=== PATIENT | male | born 1960 | race Caucasian/White ===

== ENCOUNTER 2017-06-18 20:39 | Inpatient (IN) | payer OTHER, SELFPAY ==
[~2017-06-18 20:39] MED LIST: ISOVUE-370 76%-LOCM 1 ML ONE
[2017-06-18 21:20] LABS: ALT (SGPT) 80 U/L (8-55); AST (SGOT) 127 U/L (5-34); Albumin 4.5 g/dL (3.5-5.0); Alkaline Phosphatase 77 U/L (40-150); Anion Gap 13 mmol/L (10-20); BUN (Urea Nitrogen) 13 mg/dL (8.4-25.7); Bilirubin, Total 1.2 mg/dL (0.2-1.2); CK (CPK) 137 U/L (30-200); Calc. Creatinine Clearance 0 mL/min (70-130); Calcium 9.7 mg/dL (7.8-10.44); Carbon Dioxide 26 mmol/L (22-29); Chloride 104 mmol/L (98-107); Estimated GFR-MDRD 74; Globulin 2.8 g/dL (2.4-3.5); Glucose 143 mg/dL (70-105); Lipase 42 U/L (8-78); Potassium 3.9 mmol/L (3.5-5.1); Protein, Total 7.3 g/dL (6.0-8.3); Sodium 139 mmol/L (136-145)
[2017-06-18 21:25] LABS: #Eosinphils 0.4 thou/uL (0.0-0.7); #Lymphocytes 1.8 thou/uL (1.20-3.40); #Monocytes 0.4 thou/uL (0.11-0.59); #Neutrophils 4.3 thou/uL (1.40-6.50); %Basophils 0.4 % (0.0-1.0); %Eosinophils 5.8 % (0.0-10.0); %Lymphocytes 25.6 % (21.0-51.0); %Monocytes 5.4 % (0.0-10.0); %Neutrophils 62.8 % (42.0-75.0); Hemoglobin 15.1 g/dL (14.0-18.0); Mean Corpuscular HGB CONC 35.3 g/dL (32.0-36.0); Mean Corpuscular Hemoglobin 32.4 pg (27.0-31.0); Mean Corpuscular Volume 91.8 fl (80.0-94.0); Mean Platelet Volume 8.6 fL (7.4-10.4); Platelet Count 144 thou/uL (130-400); RBC Distribution Width 11.6 % (11.5-14.5); Red Blood Cell (RBC) Count 4.67 mill/uL (4.70-6.10); White Blood Cell (WBC) Count 6.8 thou/uL (4.8-10.8)
[2017-06-18 21:30] LABS: CKMB 1.5 ng/mL (0-6.6); Troponin I Less than 0.010 ng/mL (< 0.028)
[2017-06-18] MEDS ORDERED: Nitroglycerin 0.4 MG TAB (25 Tab Bottle) ONE (21:47)
[2017-06-18] MEDS ORDERED: Aspirin 325 MG TAB ONE (21:47)
--- NOTE | 2017-06-18 21:54 | RAD ---
PORTABLE AP CHEST X-RAY: 06/18/2017 HISTORY: Chest pain that started a couple hours ago. COMPARISON: None available. FINDINGS: Post surgical changes related to anterior cervical fusion, lower cervical spine, are noted. The card iac silhouette and bronchovascular markings are accentuated by the shallow depth of inspiration and t he portable technique. The lungs are clear. There is mild elevation of the right hemidiaphragm. Mi ld degenerative changes are seen in the thoracic spine. IMPRESSION: No acute cardiopulmonary process. POS: [facility]
[2017-06-18] MEDS ORDERED: Acetaminophen 500 MG TAB ONE (22:48)
[2017-06-18] MEDS ORDERED: Ondansetron HCl/PF 4 MG/2 ML Vial ONE (22:48)
--- NOTE | 2017-06-18 23:57 | CT ---
CT ANGIOGRAM THORAX WITH IV CONTRAST AND 3D RECONSTRUCTIONS: CT ANGIOGRAM ABDOMEN WITH IV CONTRAST AND 3D RECONSTRUCTIONS: 06/18/2017 HISTORY: Chest pain. Tightness in rib cage. Back pain. COMPARISON: CTA chest from 08/03/[address] abdomen and pelvis from 08/27/2010. FINDINGS: The thoracic and abdominal aorta are normal in caliber without evidence of an aortic dissection. The bilateral visualized proximal common iliac arteries are patent. There is a common origin of the lef t common carotid artery and innominate artery, which are patent. The bilateral subclavian arteries a re patent. The celiac, superior mesenteric, and inferior mesenteric arteries are widely patent. There are two l eft and a single right patent renal arteries. The pulmonary arteries are not well opacified, as this exam is tailored for evaluation of the thoraci c and abdominal aorta. The heart is mildly enlarged. There is dependent atelectasis in the lungs bilaterally. The lungs otherwise appear clear. Calcified right hilar lymph nodes are seen with calcified granulomata present within the spleen. There is no evidence of lymphadenopathy. There is a stable, hypodense lesion in the lateral segment, left hepatic lobe, likely related to a cy st. There are subcentimeter, jhi-fwjjq-sg-characterize, hypodense lesions in each kidney, which are nonsp ecific but, statistically, likely represent small renal cysts. The pancreas and bilateral adrenal glands have a normal CT appearance. The appendix is normal in caliber. A small amount of retained fecal material is seen within the colo n. A few colonic diverticula are seen in the descending colon. A small duodenal diverticulum involve s the third portion of the duodenum. There are degenerative changes in the thoracic and lumbar spine with partial visualization of anterio r cervical fusion of the lower cervical spine. IMPRESSION: 1. Thoracic and abdominal aorta are normal in caliber without evidence of an aortic dissection. 2. Additional incidental findings are as described above. POS: [facility]
--- NOTE | 2017-06-19 00:14 | PDOC.FPRHP ---
- History of Present Illness Chief Complaint: Chest pain History of Present Illness: 57 yo M with hx of DM2 and BPH here with CC of chest pain that started around 1800. Pain was described as tightness and radiated to his back. Associated symptoms include dyspnea and nausea. Pt denied diaphoresis, headache, dizziness , changes in vision, peripheral weakness/numbness. He has no history of similar chest pain. He has no cardiac history. He states that the pain was improved by sitting up. In the ED he was given tylenol, nitro, asa, and zofran. Due to radiation to the back CTA was ordered and was negative. - Allergies/Adverse Reactions Allergies Allergy/AdvReac Type Severity Reaction Status Date / Time codeine AdvReac Mild itches if Verified 02/09/15 14:02 he takes more than 2 - Home Medications Medication Instructions Recorded Confirmed Type Cetirizine HCl [Zyrtec] 10 mg PO HS 11/19/14 06/19/17 History Lisinopril 10 mg PO HS 11/19/14 06/19/17 History Omeprazole 20 mg PO HS 11/19/14 06/19/17 History metFORMIN HCl [metFORMIN HCl ER] 500 mg PO HS 11/19/14 06/19/17 History Doxazosin [Cardura] 4 mg PO HS 06/19/17 06/19/17 History glyBURIDE [Glyburide] 5 mg PO HS 06/19/17 06/19/17 History rOPINIRole HCl [Requip] 2 mg PO QPM 06/19/17 06/19/17 History - History PMHx: DM2 BPH PSHx: Cervical Sx R shoulder FHx: Maternal DM, lung ca, heart disease Social: Former etoh abuse, no drinks in 27 years Former social smoker No recreational drug use - Review of Systems General: denies: fever/chills, weight/appetite/sleep changes, night sweats Eyes: denies: vision changes ENT: denies: nasal congestion Respiratory: reports: shortness of breath. denies: cough, congestion Cardiovascular: reports: chest pain (Radiates to the back. Denies radiation to L arm, neck, jaw). denies: palpitation, edema Gastrointestinal: reports: nausea. denies: vomiting, abdominal pain Skin: denies: rashes, lesions Musculoskeletal: denies: pain Neurological: denies: numbness, syncope, seizure Psychological: denies: anxiety, depression - Vital signs BP: 134/69 HR: 77 RR: 18 Tmax: 98.4 Pox: 96% on RA Wt: 100 kg - Physical Exam Constitutional: NAD, awake, alert and oriented HEENT: normocephalic and atraumatic, PERRLA, EOMI, no scleral icterus Neck: supple, FROM, trachea midline Chest: no-tender to palpation Heart: RRR, normal S1/S2, no murmurs/rubs/gallops Lungs: CTAB, no respiratory distress Abdomen: soft, non-tender, bowel sounds present Musculoskeletal: normal structure Neurological: no focal deficit, CN II-XII intact Skin: no rash/lesions, good turgor Heme/Lymphatic: no unusual bruising or bleeding Psychiatric: normal mood and affect FMR H&P: Results - Labs Result Diagrams: 06/18/17 20:50 06/19/17 02:46 Lab results: WBC 6.8 thou/uL (4.8-10.8) 06/18/17 20:50 Hgb 15.1 g/dL (14.0-18.0) 06/18/17 20:50 Hct 42.9 % (42.0-52.0) 06/18/17 20:50 MCV 91.8 fl (80.0-94.0) 06/18/17 20:50 Plt Count 144 thou/uL (130-400) 06/18/17 20:50 Neutrophils % 62.8 % (42.0-75.0) 06/18/17 20:50 Sodium 139 mmol/L (136-145) 06/18/17 20:50 Potassium 3.9 mmol/L (3.5-5.1) 06/18/17 20:50 Chloride 104 mmol/L (98-107) 06/18/17 20:50 Carbon Dioxide 26 mmol/L (22-29) 06/18/17 20:50 BUN 13 mg/dL (8.4-25.7) 06/18/17 20:50 Creatinine 1.04 mg/dL (0.6-1.3) 06/18/17 20:50 Glucose 143 mg/dL (70-105) H 06/18/17 20:50 Calcium 9.7 mg/dL (7.8-10.44) 06/18/17 20:50 Total Bilirubin 1.2 mg/dL (0.2-1.2) 06/18/17 20:50 AST 127 U/L (5-34) H 06/18/17 20:50 ALT 80 U/L (8-55) H 06/18/17 20:50 Alkaline Phosphatase 77 U/L (40-150) 06/18/17 20:50 Creatine Kinase 137 U/L (30-200) 06/18/17 20:50 CK-MB (CK-2) 1.5 ng/mL (0-6.6) 06/18/17 20:50 Serum Total Protein 7.3 g/dL (6.0-8.3) 06/18/17 20:50 Albumin 4.5 g/dL (3.5-5.0) 06/18/17 20:50 Lipase 42 U/L (8-78) 06/18/17 20:50 - EKG Interpretation EKG: NSR, No ST changes or T wave inversion, left axis deviation - Radiology Interpretation Chest x-ray Status: report reviewed by me (No acute process. Shallow inspiration.) CT scan - chest Status: report reviewed by me (No dissection. Mildly enlarged heart. Atelectasis b/l. Calcified R hilar lymph nodes. Calcified splenic granuloma. Hypodense cystic lesion L lobe of liver.) FMR H&P: A/P - Problem List (1) Chest pain Current Visit: Yes Status: Acute Code(s): R07.9 - CHEST PAIN, UNSPECIFIED (2) DM2 (diabetes mellitus, type 2) Current Visit: Yes Status: Acute (3) BPH (benign prostatic hyperplasia) Current Visit: Yes Status: Acute Code(s): N40.0 - BENIGN PROSTATIC HYPERPLASIA WITHOUT LOWER URINRY TRACT SYMP (4) Elevated LFTs Current Visit: Yes Status: Acute Code(s): R79.89 - OTHER SPECIFIED ABNORMAL FINDINGS OF BLOOD CHEMISTRY (5) RLS (restless legs syndrome) Current Visit: Yes Status: Acute - Plan Atypical chest pain - admit to tele obs, HEART score 3 - trend troponin - Fasting lipids - TSH - consider stress test in am - NPO at midnight Transaminitis - RUQ us - CMP in am DM2 - continue home meds - A1c - ACHS accucheck - hold metformin - low carb diet when cleared for diet BPH - restart home flomax RLS - restart home meds Ppx - lovenox Code Full Dispo: Pt is stable, obs over night and work to risk stratify. Likely home tomorrow pending work up FMR H&P: Upper Level - Pertinent history 57 year old male who presented to the ED complaining of chest pain starting today at 18:00. Associated with radiation to back, dyspnea, nausea, and ribcage tightness. Patient denies diopheresis. No known history of CA or CAD. Patient is a former smoker but quit nearly 30 years ago. He describes the pain as pressure. It lasted just under 3 hours and improved with sitting up. No family history of CAD or CA. Patient states it occurred after eating. He had significant nausea but did not vomit. Pain now resolved. He has not had a similar episode before. No aggravating factors. Denies exertional dyspnea, palpitations, PND, orthopnea, nausea after meals, RUQ/epigastric pain. Does endorse frequent belching tonight. In the ED he was seen by Dr. Mondragon and given Tylenol, Zofran, nitro, and aspirin. CTA chest was ordered to rule out aortic dissection. PMH includes DM2, DVT, restless leg syndrome, and BPH. No history of hypertension. No history of drug use. - Pertinent findings Vital Signs: Temp 98.2 RR 16 HR 75 BP 126/80 O2 sat 95% on room air Weight 99.8 kgs Physical Exam General: Awake, alert, and oriented x4. NAD. Resting comfortably with and daughters at bedside. Eyes: PERRLA, EOMI, nonicteric ENT: MMM. Oropharynx clear CV: RRR. No m/r/g. Pulses full and equal in all 4 extremities. No tenderness of chest wall to palpations. Resp: Lungs CTAB. No wheezing, rales, or rhonchi. Breathing unlabored Abdomen: Soft. NT/ND. No guarding or rebound. Lincoln sign negative Extremities: No clubbing, cyanosis, or edema. Equal movements bilaterally Skin: No rashes, ulcers, palpable lesions, or jaundice Neuro: CN II XII intact. No focal deficits Psych: Mood and affect appropriate. Judgement and insight intact. - Plan Date/Time: 06/19/17 0013 I, Matt Miller DO, have evaluated this patient and agree with findings/plan as outlined by internal communications writer resident. Pertinent changes/additions are listed here. 57 year old white male with a past medical history of DM2 p/w: 1)Atypical chest pain - Place in telemetry. EKG changes are nonspecific and cardiac enzymes negative so far. Trend cardiac enzymes and EKG. CTA ordered in ED to rule out dissection results pending. I personally reviewed images and did not see an obvious dissection but will await official results. Other considerations include pericarditis and gallbladder disease. HEART score is 3. Consider stress test in morning. RUQ US ordered. 2) Transaminitis - Fatty liver disease versus biliary tract disease. Repeat CMP in morning. Will get RUQ US. 3) DM2 - Hold metformin. Accuchecks ACHS 4) Restless leg syndrome - Home meds 5) Code Status - Full Attending Addendum - Attending Addendum Date/Time: 06/19/17 1046 I personally evaluated the patient and discussed the management with Dr. Owens , Paul, and Omayra I agree with the History, Examination, Assessment and Plan documented above with any addition or exceptions noted below. 57 yo male with hx of DM, BPH, GERD admitted for chest pain. Reports symptoms resolved with rest, IV fluids, and medications. VS, labs, and imaging reviewed. NAD on exam. RRR. No murmurs. CTA bilaterally. Abdomen soft and nontender. 1. Uncomplicated Choledocholithiasis: TBili 2.3 with LFTs 300s and 200s. Pain free at present. GI consulted for evaluation and treatment. Will subsequently need gen surg. Thoughts of possible acute cholangitis therefore 1 dose Zosyn given. Awaiting GI evaluation. Apolinar
[2017-06-19] MEDS ORDERED: Ondansetron ODT 4 MG TAB SL PRN (00:30)
[2017-06-19] MEDS ORDERED: Ondansetron HCl/PF 4 MG/2 ML Vial IVP PRN (00:30)
[2017-06-19] MEDS ORDERED: Acetaminophen 325 MG TAB PO PRN (00:30)
[2017-06-19 00:38] VITALS: BMI 30.1
[2017-06-19 00:48] LABS: Troponin I Less than 0.010 ng/mL (< 0.028)
[2017-06-19] MEDS: Ibuprofen 800 MG TAB PO PRN ×2 (01:27→21:03)
[2017-06-19 03:17] LABS: Troponin I Less than 0.010 ng/mL (< 0.028)
[2017-06-19 03:38] LABS: ALT (SGPT) 232 U/L (8-55); AST (SGOT) 356 U/L (5-34); Albumin 4.1 g/dL (3.5-5.0); Alkaline Phosphatase 80 U/L (40-150); Anion Gap 11 mmol/L (10-20); BUN (Urea Nitrogen) 15 mg/dL (8.4-25.7); Bilirubin, Total 2.3 mg/dL (0.2-1.2); Calc. Creatinine Clearance 107 mL/min (70-130); Calcium 9.2 mg/dL (7.8-10.44); Carbon Dioxide 23 mmol/L (22-29); Cardiac Risk 2.8 (Less than 4.5); Chloride 107 mmol/L (98-107); Cholesterol 128 mg/dl (< 200 Desired); Estimated GFR-MDRD 70; Globulin 2.2 g/dL (2.4-3.5); Glucose 262 mg/dL (70-105); HDL Cholesterol 45 mg/dL (>60 Neg Risk); LDL Cholesterol, Calculated 74 mg/dL; Potassium 4.1 mmol/L (3.5-5.1); Protein, Total 6.3 g/dL (6.0-8.3); Sodium 137 mmol/L (136-145); Triglycerides 47 mg/dL (Less than 150)
[2017-06-19] MEDS ORDERED: Piperacillin/Tazobactam 3.375 GM in Sodium Chloride 0.9% 100 ML IVPB SCH ×3 (06:45→14:00)
[2017-06-19] MEDS: Sodium Chloride 0.9% 1,000 ML IV SCH ×2 (08:11→17:12)
--- NOTE | 2017-06-19 08:34 | ULT ---
GALLBLADDER ULTRASOUND: Date: 06/19/17 HISTORY: Elevated LFTs. COMPARISON: None TECHNIQUE: Utilizing multihertz transducer, sonographic imaging of the right upper quadrant is performed in the longitudinal and transverse plane. FINDINGS: Hepatic parenchyma has a normal echotexture. No hepatic masses or intrahepatic dilatation. Contour of the hepatic margin is maintained. Pancreas is obscured by bowel gas. Small amount of fluid adjacent to the gallbladder. No sonographic evidence of cholelithiasis or gallb ladder wall thickening. Negative Styles's sign. Right kidney: Anechoic focus measuring 1.2 x 1.4 x 1.0 cm, likely representing a small cyst. No hydr onephrosis. Right kidney measures 6.3 x 11.8 x 5.9 cm. Common bile duct diameter is 0.7 cm. IMPRESSION: Prominent common bile duct. Correlate for choledocholithiasis. POS: [facility]
[2017-06-19] MEDS: Enoxaparin Sodium 40 MG/0.4 ML SYRINGE SC SCH (09:28)
--- NOTE | 2017-06-19 14:57 | CON ---
DATE OF CONSULTATION: 06/19/2017 HISTORY OF PRESENT ILLNESS: The patient is a 57-year-old male who was in normal state of h ealth until he developed severe chest pain. He said this pain was in the mid chest, radiating around to both sides into the mid back. He has never had any prior episodes like this before. He did deve lop nausea without vomiting during this episode. He denies any weight loss, any melena, hematochezia , any other GI complaints. Patient underwent a chest x-ray which showed no abnormalities. CT of the chest for dissection showed no abnormalities. His LFTs were noted and he underwent an abdominal ult rasound that showed prominent common bile duct. No gallstones were appreciated. Common bile duct wa s 7 mm. PAST MEDICAL HISTORY: Left shoulder surgery, cervical spine surgery, and tonsillectomy. PAST MEDICAL HISTORY: Significant for diabetes mellitus, BPH, hypertension, gastroesophageal reflux. MEDICATIONS: Include Zyrtec 10 mg p.o. at bedtime, lisinopril 10 mg p.o. at bedtime, omeprazole 20 m g p.o. at bedtime, metformin 500 mg p.o. at bedtime, Cardura 4 mg p.o. at bedtime, glyburide 5 mg p.o . daily, and Requip 2 mg p.o. q.a.m. ALLERGIES: CODEINE. SOCIAL HISTORY: Does not smoke or drink. FAMILY HISTORY: Negative for GI or liver disease. REVIEW OF SYSTEMS: Ten systems were reviewed and were negative except for above. PHYSICAL EXAMINATION: GENERAL: Shows a well-developed, well-nourished white male in no acute distress. VITAL SIGNS: Temperature 97.5, pulse 61, respiratory rate 16, blood pressure 111/59. HEENT: Shows no scleral icterus. NECK: Supple. CHEST: Clear. CARDIOVASCULAR: Regular rate and rhythm. ABDOMEN: Soft and nontender without organomegaly or masses. EXTREMITIES: Normal. LABORATORY DATA: Shows a normal CBC. Chemistries show glucose 262, total bilirubin 2.3, AST of 356, ALT of 232, and lipase of 42. ASSESSMENT: 1. Chest pain. 2. Elevated liver function tests. 3. Dilated common bile duct on ultrasound. RECOMMENDATIONS: 1. Obtain surgical opinion. 2. Repeat LFTs if trending down and possibly intraoperative cholangiogram could be performed during cholecystectomy. 3. ERCP if LFTs do not resolve or become more elevated.
[2017-06-19 15:13] LABS: ALT (SGPT) 378 U/L (8-55); AST (SGOT) 359 U/L (5-34); Albumin 3.9 g/dL (3.5-5.0); Alkaline Phosphatase 88 U/L (40-150); Bilirubin, Direct 3.1 mg/dL (0.1-0.3); Bilirubin, Total 3.7 mg/dL (0.2-1.2); Protein, Total 6.2 g/dL (6.0-8.3)
--- NOTE | 2017-06-19 20:41 | CON ---
DATE OF CONSULTATION: 06/19/2017 CHIEF COMPLAINT: Chest pain. HISTORY: This is a 57-year-old diabetic male who had the acute onset 6:30 p.m. last night of chest p ain radiating to the back associated with nausea and vomiting, no previous episodes. He now feels be tter. PAST MEDICAL HISTORY: Diabetes, hypertension, gastroesophageal reflux. PAST SURGICAL HISTORY: He has had a neck surgery, shoulder surgery, rotator cuff surgery, tonsil and adenoidectomy. MEDICATIONS: Include metformin, lisinopril, omeprazole, aspirin, Aleve, Cialis, Zyrtec. ALLERGIES: CODEINE. SOCIAL HISTORY: He is . No tobacco or alcohol. FAMILY HISTORY: Noncontributory. PHYSICAL EXAMINATION: Diabetes and bladder cancer. PHYSICAL EXAMINATION: VITAL SIGNS: Temperature 98.3, pulse 56, blood pressure 137/79. GENERAL: Well-developed, well-nourished male in no apparent distress. HEENT: He is jaundiced. LUNGS: Clear. HEART: Regular rate and rhythm. ABDOMEN: Soft, nondistended, nontender. IMAGING: His CT scan did not show any abnormality. Ultrasound showed somewhat enlarged common duct. No gallstones. LABORATORY AND X-RAY FINDINGS: His white count 6.8, H&H 15 and 42, platelet count 144, total bilirub in is 3.7, AST of 355, ALT of 378. ASSESSMENT: Common duct dilatation, probably passed a gallstone, but no evidence of gallstones. PLAN: Repeat LFTs in the morning. There are still high. I would recommend ERCP.
[2017-06-19] MEDS: rOPINIRole HCl 2 MG TAB PO SCH (21:04)
[2017-06-19] MEDS: Lisinopril 10 MG TAB PO SCH (21:04)
[2017-06-19] MEDS: Doxazosin 2 MG TAB PO SCH (21:04)
[2017-06-19] MEDS: Cetirizine HCl 10 MG TAB PO SCH (21:05)
[2017-06-19] MEDS: glyBURIDE 5 MG TAB PO SCH (21:05)
[2017-06-20] MEDS: Sodium Chloride 0.9% 1,000 ML IV SCH ×2 (00:27→08:35)
[2017-06-20 05:17] LABS: ALT (SGPT) 313 U/L (8-55); AST (SGOT) 194 U/L (5-34); Albumin 3.6 g/dL (3.5-5.0); Alkaline Phosphatase 87 U/L (40-150); Anion Gap 7 mmol/L (10-20); BUN (Urea Nitrogen) 8 mg/dL (8.4-25.7); Bilirubin, Total 3.2 mg/dL (0.2-1.2); Calc. Creatinine Clearance 123 mL/min (70-130); Calcium 9.1 mg/dL (7.8-10.44); Carbon Dioxide 26 mmol/L (22-29); Chloride 109 mmol/L (98-107); Estimated GFR-MDRD 83; Globulin 2.2 g/dL (2.4-3.5); Glucose 193 mg/dL (70-105); Potassium 3.9 mmol/L (3.5-5.1); Protein, Total 5.8 g/dL (6.0-8.3); Sodium 138 mmol/L (136-145)
[2017-06-20 05:22] LABS: ALT (SGPT) 312 U/L (8-55); AST (SGOT) 193 U/L (5-34); Albumin 3.6 g/dL (3.5-5.0); Alkaline Phosphatase 88 U/L (40-150); Bilirubin, Direct 2.6 mg/dL (0.1-0.3); Bilirubin, Total 3.3 mg/dL (0.2-1.2); Protein, Total 5.8 g/dL (6.0-8.3)
[2017-06-20 05:30] LABS: Eosinophils 5 % (0-10); Hemoglobin 13.1 g/dL (14.0-18.0); Lymphocytes 14 % (21-51); MDiff Complete? YES; Mean Corpuscular HGB CONC 34.3 g/dL (32.0-36.0); Mean Corpuscular Hemoglobin 31.9 pg (27.0-31.0); Mean Corpuscular Volume 92.8 fl (80.0-94.0); Mean Platelet Volume 8.9 fL (7.4-10.4); Monocytes 6 % (0-10); Neutrophil 67 % (42-75); PLT Morphology Comment Appears Decreased; Platelet Count 118 thou/uL (130-400); RBC Distribution Width 11.9 % (11.5-14.5); RBC Morphology Normal; Reactive Lymphocytes 8 % (0-10); Red Blood Cell (RBC) Count 4.12 mill/uL (4.70-6.10)
[2017-06-20] MEDS: Enoxaparin Sodium 40 MG/0.4 ML SYRINGE SC SCH (08:38)
--- NOTE | 2017-06-20 10:30 | PDOC.FM ---
- Subjective Subjective: MICHEAL overnight, VSS, afebrile. No new concerns this AM. - Objective MAR Reviewed: Yes Vital Signs & Weight: Vital Signs (12 hours) Temp Pulse Resp BP Pulse Ox 06/20/17 08:35 98.8 F 64 18 06/20/17 08:00 98.8 F 64 18 141/65 H 93 L 06/20/17 07:08 97 06/20/17 03:50 98.5 F 69 16 124/67 95 06/19/17 23:02 99.1 F Weight Weight 100.834 kg I&O: 06/19/17 06/20/17 06/21/17 06:59 06:59 06:59 Intake Total 120 3087 Balance 120 3087 Result Diagrams: 06/20/17 03:51 06/20/17 03:51 <Aldo Cutler - Last Filed: 06/20/17 10:28> - Objective Vital Signs & Weight: Vital Signs (12 hours) Temp Pulse Resp BP BP Pulse Ox 06/20/17 20:45 146/77 H 06/20/17 20:00 98.2 F 54 L 16 94 L 06/20/17 18:58 98.2 F 54 L 16 158/80 H 94 L Weight Weight 100.834 kg I&O: 06/19/17 06/20/17 06/21/17 06:59 06:59 06:59 Intake Total 120 3087 875 Balance 120 3087 875 Result Diagrams: 06/20/17 03:51 06/20/17 15:10 <Cooper Bobo - Last Filed: 06/20/17 23:21> Phys Exam - Physical Examination Constitutional: NAD HEENT: PERRLA, moist MMs Neck: no nodes, no JVD Respiratory: no wheezing, clear to auscultation bilateral Cardiovascular: RRR, no significant murmur Gastrointestinal: soft, non-tender, no distention, positive bowel sounds Musculoskeletal: no edema, pulses present Neurological: non-focal, normal sensation, moves all 4 limbs Psychiatric: normal affect, A&O x 3 Skin: cap refill <2 seconds <Aldo Cutler - Last Filed: 06/20/17 10:28> Dx/Plan (1) Choledocholithiasis Code(s): K80.50 - CALCULUS OF BILE DUCT W/O CHOLANGITIS OR CHOLECYST W/O OBST Status: Acute Plan: GI reconsulted this AM for ERCP w/ still elevated LFT's w/ T. bili 3.3 NPO in prep for ERCP today Likely d/c home s/p procedure pending GI recs Sludge on RUQ U/S Will refer to gen surg outpatient for elective jason s/p discharge No concern at this time for ascending cholangitis (2) Chest pain Code(s): R07.9 - CHEST PAIN, UNSPECIFIED Status: Acute Plan: Trops negative x3 w/ HEART 3 Likely 2/2 choledocholithiasis ERCP scheduled for today (3) DM2 (diabetes mellitus, type 2) Status: Acute Plan: Stable Cont. w/ home med regimen <Aldo Cutler - Last Filed: 06/20/17 10:28> Attending Addendum - Attending Addendum Date/Time: 06/20/17 5269 I personally evaluated the patient and discussed the management with Dr. Cristofer Cutler. I agree with the History, Examination, Assessment and Plan documented above with any addition or exceptions noted below. Mr. Bland feels fine. Endorses being a little Short of Breath but appears in no respiratory distress. Lungs: CTA, Cor: RRR, No murmur. Abdomen: Soft non-tender, no guard or rebound. Ext: No c/E/C/P. A: Likely acute episode of cholelithiasis vs choledocholithiasis. P: Prepped for ERCP today. Per Dr. Walton. MD Charbel <Cooper Bobo - Last Filed: 06/20/17 23:21>
[2017-06-20] MEDS ORDERED: Lidocaine 1% PF 5 ML VIAL ONE (14:32)
[2017-06-20] MEDS ORDERED: PROPOFOL 200 MG/20 ML VIAL ONE (14:32)
[2017-06-20] MEDS ORDERED: Succinylcholine Chloride 20 MG/ML 10 ml SYRINGE FS ONE (14:32)
[2017-06-20] MEDS ORDERED: Indomethacin 50 MG SUPP PR SCH (15:00)
[2017-06-20] MEDS ORDERED: Iothalamate Meglumine 60% 50 ML VIAL FS ONE (15:20)
[2017-06-20] MEDS ORDERED: Indomethacin 50 MG SUPP ONE (15:23)
[2017-06-20 15:37] LABS: ALT (SGPT) 278 U/L (8-55); AST (SGOT) 136 U/L (5-34); Albumin 3.9 g/dL (3.5-5.0); Alkaline Phosphatase 99 U/L (40-150); Anion Gap 10 mmol/L (10-20); BUN (Urea Nitrogen) 7 mg/dL (8.4-25.7); Bilirubin, Total 2.3 mg/dL (0.2-1.2); Calc. Creatinine Clearance 120 mL/min (70-130); Calcium 9.5 mg/dL (7.8-10.44); Carbon Dioxide 25 mmol/L (22-29); Chloride 109 mmol/L (98-107); Estimated GFR-MDRD 80; Globulin 2.6 g/dL (2.4-3.5); Glucose 125 mg/dL (70-105); Protein, Total 6.5 g/dL (6.0-8.3); Sodium 140 mmol/L (136-145)
[2017-06-20] MEDS ORDERED: Glycopyrrolate 0.2 MG/ML 5 ML SYRINGE ONE (16:24)
[2017-06-20] MEDS ORDERED: Midazolam HCl 2 mg/2 ml Vial ONE (16:53)
[2017-06-20] MEDS ORDERED: Fentanyl 100 MCG/2 ML VIAL ONE (16:54)
[2017-06-20] MEDS ORDERED: Ondansetron HCl/PF 4 MG/2 ML Vial IVP PRN (18:11)
--- NOTE | 2017-06-20 20:01 | RAD ---
INTRAOPERATIVE ERCP FLUOROSCOPIC IMAGIN06/20/17 CLINICAL HISTORY: Right upper quadrant pain, elevated liver function enzymes. FINDINGS: Intraoperative fluoroscopic imaging reveals contrast opacification of portions of the biliary tree as well as partially opacifying the gallbladder. There is a round filling defect present within the com mon duct on one image which may relate to insufflated balloon. Correlate with intraoperative assessme nt in this regard. A deployed wire is seen, located laterally within the right abdomen at its termina l aspect. The contrast opacified cystic duct demonstrates a contracted appearance. IMPRESSION: Contrast opacified biliary tree, without significant abnormality confirmed. There is a presumed iatro genic filling defect as discussed above. POS: [facility]
[2017-06-20] MEDS: rOPINIRole HCl 2 MG TAB PO SCH (20:44)
[2017-06-20] MEDS: Lisinopril 10 MG TAB PO SCH (20:45)
[2017-06-20] MEDS: Cetirizine HCl 10 MG TAB PO SCH (20:45)
[2017-06-20] MEDS: glyBURIDE 5 MG TAB PO SCH (20:45)
[2017-06-20] MEDS: Doxazosin 2 MG TAB PO SCH (20:45)
--- NOTE | 2017-06-20 21:46 | OP ---
DATE OF PROCEDURE: 06/20/2017 SURGEON: Kelton Walton MD PROCEDURE: Endoscopic retrograde cholangiopancreatography with sphincterotomy. INDICATION FOR PROCEDURE: Abnormal liver function tests, possible choledocholithiasis, abnormal GI i maging. ASSISTING PHYSICIAN: Dr. Sahil Parekh. DESCRIPTION OF PROCEDURE: After the risks and benefits of the procedure were explained to the patien t including risks of bleeding, infection, perforation, reactions to anesthesia, pancreatitis and/or p ain, informed consent was obtained. The patient was then taken to the endoscopy suite, where general anesthesia was administered with intubation of the patient prior to the procedure. Patient was plac ed in the proper position, the standard duodenoscope was advanced into the mouth with intubation of t he esophagus, stomach, and proximal small intestines with limited findings listed below on observatio n of the mucosa in these regions. Then, using fluoroscopy, the ampulla of Vater was successfully can nulated with guidewire placed in appropriate position with the findings listed below. The patient to lerated the procedure well with no immediate perioperative complications. FINDINGS: EGD: Limited views were seen of the esophagus, stomach, and proximal small intestine of the mucosa v isualized, normal appearing mucosa was seen in the esophagus, stomach, and proximal small intestine w ith no evidence of erosions, ulcerations, mass lesions, or active/recent bleeding. ERCP: After the ampulla of Vater was successfully identified, it was successfully cannulated using a sphincterotome with a guidewire appropriately placed within the biliary tree. Then, using the sphin cterotome, a sphincterotomy was cut to an adequate position. There would allow for successful passag e of a balloon with minimal bleeding noted upon the sphincterotomy. The sphincterotome was advanced after the ampulla was successfully undergone sphincterotomy, the catheter was then guided into the co mmon bile duct with infusion of contrast within the biliary tree that was seen under fluoroscopy. In itially, the common bile duct measured approximately 6-7 mm in diameter when compared to the diameter of the duodenal scope. There was no intrahepatic biliary dilatation. The sphincterotome was then e xchanged for a balloon catheter over a guidewire exchange. Once exchanged, the balloon catheter was advanced into the common bile duct and advanced into the common hepatic duct with an occlusion cholan giography performed. Again normal appearing intrahepatic biliary tree was seen and as the balloon wa s withdrawn through the common bile duct, there was noted filling of the cystic duct as well as the g allbladder in addition to the distal common bile duct. There were no filling defects noted on occlus ion cholangiography. Three successive balloon sweeps were then performed for possible choledocholith iasis with the extrusion of some biliary sludge, but no gross gallstones were retrieved during this e xamination. After the third balloon sweep, it was noted that the biliary tree was draining successfu lly and spontaneously, at which point, the procedure was terminated with all equipment removed. IMPRESSION: Successful endoscopic retrograde cholangiopancreatography with sphincterotomy with minim al amount of biliary sludge obtained upon balloon withdrawal. No evidence of choledocholithiasis. RECOMMENDATIONS: 1. Follow up with primary inpatient team. 2. Would continue to trend liver function tests daily to assess for continued elevation. 3. Would continue to monitor clinically for any signs of post-ERCP pancreatitis as well as draw lipa se in the morning for this particular condition. 4. Would defer to General Surgery Service for timing of possible cholecystectomy. We will continue to follow. Please call with any questions.
[2017-06-21 05:05] LABS: #Eosinphils 0.4 thou/uL (0.0-0.7); #Lymphocytes 1.1 thou/uL (1.20-3.40); #Monocytes 0.4 thou/uL (0.11-0.59); #Neutrophils 2.5 thou/uL (1.40-6.50); %Basophils 0.9 % (0.0-1.0); %Eosinophils 9.5 % (0.0-10.0); %Lymphocytes 25.6 % (21.0-51.0); %Monocytes 8.6 % (0.0-10.0); %Neutrophils 55.3 % (42.0-75.0); Hemoglobin 13.1 g/dL (14.0-18.0); Mean Corpuscular HGB CONC 34.3 g/dL (32.0-36.0); Mean Corpuscular Hemoglobin 31.6 pg (27.0-31.0); Mean Corpuscular Volume 92.1 fl (80.0-94.0); Mean Platelet Volume 8.6 fL (7.4-10.4); Platelet Count 121 thou/uL (130-400); RBC Distribution Width 11.7 % (11.5-14.5); Red Blood Cell (RBC) Count 4.16 mill/uL (4.70-6.10); White Blood Cell (WBC) Count 4.4 thou/uL (4.8-10.8)
[2017-06-21 05:28] LABS: ALT (SGPT) 211 U/L (8-55); AST (SGOT) 80 U/L (5-34); Albumin 3.6 g/dL (3.5-5.0); Alkaline Phosphatase 93 U/L (40-150); Anion Gap 12 mmol/L (10-20); BUN (Urea Nitrogen) 11 mg/dL (8.4-25.7); Bilirubin, Total 1.5 mg/dL (0.2-1.2); Calc. Creatinine Clearance 122 mL/min (70-130); Carbon Dioxide 23 mmol/L (22-29); Chloride 107 mmol/L (98-107); Estimated GFR-MDRD 82; Globulin 2.3 g/dL (2.4-3.5); Glucose 215 mg/dL (70-105); Lipase 25 U/L (8-78); Protein, Total 5.9 g/dL (6.0-8.3); Sodium 138 mmol/L (136-145)
[2017-06-21] MEDS: Enoxaparin Sodium 40 MG/0.4 ML SYRINGE SC SCH (09:26)
--- NOTE | 2017-06-21 10:57 | PDOC.FM ---
- Subjective Subjective: MICHEAL overnight, VSS, no return of pain. Seen by surgery this AM w/ no plans for cholecystectomy - Objective MAR Reviewed: Yes Vital Signs & Weight: Vital Signs (12 hours) Temp Pulse Resp BP Pulse Ox 06/21/17 08:00 98.7 F 52 L 18 06/21/17 07:33 98.7 F 52 L 18 124/73 98 06/21/17 04:11 98.0 F 63 15 136/60 96 06/20/17 23:02 97.9 F 52 L 16 133/69 96 Weight Weight 100.834 kg I&O: 06/20/17 06/21/17 06/22/17 06:59 06:59 06:59 Intake Total 3087 875 Balance 3087 875 Result Diagrams: 06/21/17 04:09 06/21/17 04:09 <Aldo Cutler - Last Filed: 06/21/17 10:55> - Objective Vital Signs & Weight: Vital Signs (12 hours) Temp Pulse Resp BP Pulse Ox 06/21/17 11:05 98.3 F 57 L 18 157/86 H 96 06/21/17 08:00 98.7 F 52 L 18 06/21/17 07:33 98.7 F 52 L 18 124/73 98 06/21/17 04:11 98.0 F 63 15 136/60 96 Weight Weight 100.834 kg I&O: 06/20/17 06/21/17 06/22/17 06:59 06:59 06:59 Intake Total 3087 875 Balance 3087 875 Result Diagrams: 06/21/17 04:09 06/21/17 04:09 <Cooper Bobo - Last Filed: 06/21/17 11:18> Phys Exam - Physical Examination Constitutional: NAD HEENT: PERRLA, moist MMs Neck: no nodes, full ROM Respiratory: no wheezing, clear to auscultation bilateral Cardiovascular: RRR, no significant murmur, no rub Gastrointestinal: soft, non-tender, no distention, positive bowel sounds Musculoskeletal: no edema, pulses present Neurological: non-focal, normal sensation, moves all 4 limbs Psychiatric: normal affect, A&O x 3 <Aldo Cutler - Last Filed: 06/21/17 10:55> Dx/Plan (1) Choledocholithiasis Code(s): K80.50 - CALCULUS OF BILE DUCT W/O CHOLANGITIS OR CHOLECYST W/O OBST Status: Acute Plan: improved bili to 1.5 today s/p ERCP negative for acute stone No plans for jason per surgery Likely d/c home after tolerating regular diet this afternoon No signs of post-ercp pancreatitis No concern at this time for ascending cholangitis (2) Chest pain Code(s): R07.9 - CHEST PAIN, UNSPECIFIED Status: Resolved Plan: Trops negative x3 w/ HEART 3 Likely 2/2 choledocholithiasis ERCP performed yesterday negative for obstructing stone (3) DM2 (diabetes mellitus, type 2) Status: Acute Plan: Stable Cont. w/ home med regimen <Aldo Cutler - Last Filed: 06/21/17 10:55> Attending Addendum - Attending Addendum Date/Time: 06/21/17 1115 I personally evaluated the patient and discussed the management with Dr. Alma Cutler. I agree with the History, Examination, Assessment and Plan documented above with any addition or exceptions noted below. Afebrile VSS/normal. ERCP with sphincterotomy went well yesterday. Today No tenderness. Ate breakfast without symptoms. Stable for discharge home to f/u with PCP and with Dr. Odonnell/Gen. Surgery prn if he has any future GB Attacks. Home today if he tolerates lunch. MD Charbel <Cooper Bobo - Last Filed: 06/21/17 11:18>
[2017-06-21 11:05] VITALS: BP 157/86; TEMP 98.3
--- NOTE | 2017-06-22 13:02 | DIS-2 ---
DATE OF ADMISSION: 06/19/2017 DATE OF DISCHARGE: 06/21/2017 ADMITTING ATTENDING: Dr. Faye Ferreira DISCHARGE ATTENDING: Dr. Cooper Bobo RESIDENT: Aldo Cutler M.D. CONSULTATIONS: 1. Gastroenterology, Dr. Walton. 2. General surgery, Dr. Odonnell. PROCEDURES: 1. CT dissection protocol, negative for aortic dissection. 2. Chest x-ray showing no acute cardiopulmonary process. 3. Abdominal ultrasound showing common bile duct measuring 0.7 cm and sludge in the gallbladder with a small amount of fluid adjacent to the gallbladder, concern for possible choledocholithiasis. 4. Sphincterotomy negative for obstructing stone. PRIMARY DIAGNOSES: 1. Atypical chest pain secondary to choledocholithiasis. 2. Biliary sludge. SECONDARY DIAGNOSES: 1. Type 2 diabetes mellitus. 2. Benign prostatic hypertrophy. 3. Restless leg syndrome. DISCHARGE MEDICATIONS: 1. Omeprazole 20 mg p.o. at bedtime. 2. Lisinopril 10 mg p.o. at bedtime. 3. Zyrtec 10 mg p.o. at bedtime. 4. Metformin 500 mg p.o. bedtime. 5. Cardura 4 mg p.o. at bedtime. 6. Ropinirole 2 mg p.o. q.a.m. 7. Glyburide 5 mg p.o. at bedtime. DISCONTINUED MEDICATIONS: None. HISTORY OF PRESENT ILLNESS AND HOSPITAL COURSE: The patient is a 57-year-old male who presented to [facility] ER for evaluation of substernal chest pain that was pressure-like in sensation with radiation to t he back and around his lower ribs bilaterally. The patient with negative troponins x3 and a normal E KG, negative for any signs of ischemia. Chest x-ray obtained at that time also negative for any card iomegaly or signs of congestive heart failure. The patient was admitted initially to observation for an acute coronary syndrome rule out; however, upon further review of his laboratory work was found t o have elevated liver functions with an initial bilirubin of 1.2, AST of 127, ALT of 80 and alkaline phosphatase of 77. Right upper quadrant ultrasound was subsequently ordered. The patient did not redmond ve any right upper quadrant tenderness or fever or jaundice on exam. Right upper quadrant ultrasound revealing biliary sludge within the gallbladder and a prominent common bile duct measuring 7 mm conc shady for possible retained stone. In the setting of elevated liver function tests and prominent commo n bile duct, concern for choledocholithiasis without ascending cholangitis was raised. GI was consul mary anne for evaluation of ERCP to relieve the obstruction. However, upon reviewing patient's records kierra Vasquez deferred to General Surgery for possible cholecystectomy with IOC in the setting of biliary sludge as this would also be a viable treatment plan for this patient. Upon review by General Surgery witho ut any direct evidence of cholelithiasis, they recommended first treating with ERCP and following cho lecystectomy if indicated. ERCP was performed the following day with no noted stones within the comm on bile duct and sphincterotomy was ultimately performed with good flow noted after the procedure. T he patient's LFTs down trended with a peak bilirubin of 3.7, down trending to 1.5 prior to discharge home and a peak AST of 359 before down trending to 80 before discharge home. The patient remained as ymptomatic throughout this entire course. Discussion for a cholecystectomy while inpatient was under taken. However, patient deferred to following up with General Surgery in the outpatient setting to h ave this done if he had any further problems with his gallbladder. DISPOSITION: Stable. DISCHARGE INSTRUCTIONS: 1. Follow up with primary care provider in 7-10 days. 2. Follow up with Dr. Odonnell, General Surgery in 3-4 weeks. 3. Activity: Cardiopulmonary limits.
== END 2017-06-21 12:56 | disposition home or self-care (01) | DRG 446 ==
LOC: ERS 20:39 → 2SW 23:44 → OBSVTOIN 23:44 → 2SW 06-19 00:10
PROVIDERS: ADMIT Emergency Medicine; ATTEND Emergency Medicine
PROC: 0F798ZZ Dilation of Common Bile Duct, Via Natural or Artificial Opening Endoscopic (ICD-10-PCS; principal; 2017-06-20)
PROC: 0F7C8ZZ Dilation of Ampulla of Vater, Via Natural or Artificial Opening Endoscopic (ICD-10-PCS; 2017-06-20)
PROC: BF101ZZ Fluoroscopy of Bile Ducts using Low Osmolar Contrast (ICD-10-PCS; 2017-06-20)
DX: K80.50 Calculus of bile duct without cholangitis or cholecystitis without obstruction (principal); E11.9 Type 2 diabetes mellitus without complications; R07.89 Other chest pain; N40.0 Benign prostatic hyperplasia without lower urinary tract symptoms; G25.81 Restless legs syndrome; Z79.84 Long term (current) use of oral hypoglycemic drugs; R79.89 Other specified abnormal findings of blood chemistry; K21.9 Gastro-esophageal reflux disease without esophagitis; Z88.5 Allergy status to narcotic agent; Z23 Encounter for immunization
CPT/HCPCS: 36415; 36416; 71045; 71275; 74330; 76705; 80053; 80061; 82553; 83690; 84443; 84484; 85025; 90471; 90732; 93005; 94760; 96374; A4216; G0009; J1610; J2001; J2250; J2405; J2543; J2704; J3010; J7050; Q9961

== ENCOUNTER 2017-12-31 07:58 | Inpatient (IN) | payer OTHER, SELFPAY ==
[2017-12-31] MEDS ORDERED: Morphine 4 MG/ML VIAL ONE (08:25)
[2017-12-31] MEDS ORDERED: Ondansetron PF 4 MG/2 ML Vial ONE (08:25)
[2017-12-31 08:38] LABS: Hemoglobin 15.8 g/dL (14.0-18.0); Mean Corpuscular HGB CONC 33.2 g/dL (32.0-36.0); Mean Corpuscular Hemoglobin 31.4 pg (27.0-31.0); Mean Corpuscular Volume 94.7 fL (78.0-98.0); Mean Platelet Volume 8.5 fL (7.4-10.4); Platelet Count 145 thou/uL (130-400); RBC Distribution Width 11.6 % (11.5-14.5); Red Blood Cell (RBC) Count 5.01 mill/uL (4.70-6.10); White Blood Cell (WBC) Count 13.8 thou/uL (4.8-10.8)
[2017-12-31 08:47] LABS: ALT (SGPT) 36 U/L (8-55); AST (SGOT) 24 U/L (5-34); Albumin 4.5 g/dL (3.5-5.0); Alkaline Phosphatase 56 U/L (40-150); Anion Gap 21 mmol/L (10-20); BUN (Urea Nitrogen) 23 mg/dL (8.4-25.7); Bilirubin, Total 2.4 mg/dL (0.2-1.2); CK (CPK) 84 U/L (30-200); Calc. Creatinine Clearance 0 mL/min (70-130); Calcium 9.6 mg/dL (7.8-10.44); Carbon Dioxide 22 mmol/L (22-29); Chloride 96 mmol/L (98-107); Estimated GFR-MDRD 34; Globulin 3.2 g/dL (2.4-3.5); Glucose 289 mg/dL (70-105); Lipase 52 U/L (8-78); Potassium 4.5 mmol/L (3.5-5.1); Protein, Total 7.7 g/dL (6.0-8.3); Sodium 134 mmol/L (136-145)
[2017-12-31 08:57] LABS: Band 4 % (5-11); Lymphocytes 2 % (21-51); MDiff Complete? YES; Monocytes 4 % (0-10); Neutrophil 88 % (42-75); PLT Morphology Comment Appears Decreased; RBC Morphology Normal; Reactive Lymphocytes 2 % (0-10)
--- NOTE | 2017-12-31 09:47 | ULT ---
GALLBLADDER ULTRASOUND: CLINICAL HISTORY: Epigastric pain. FINDINGS: There is partial obscuration of the liver due to persistent bowel gas which does limit the assessment . No shadowing cholelithiasis. Borderline-sized gallbladder wall is present at 3-4 mm in size. Mur phy's sign is reported as negative by the collar feller. The common duct is at upper limits of normal for patient's age at 6 mm. No ascites. IMPRESSION: 1. Borderline size gallbladder wall. Recommend correlation to exclude evidence of cholecystitis. 2. The common duct is at upper limits of normal in size. Recommend correlation with biliary laborat ory values to exclude developing obstructive process. 3. Limited evaluation due to partial obscuration of the right upper quadrant by persistent bowel. POS: [facility]
[2017-12-31 09:48] LABS: Bilirubin Small (Negative); Blood, Urine Negative (Negative); Clarity CLEAR (Clear); Glucose, Urine (Dipstick) 500 mg/dL (Negative); Leukocyte Negative (Negative); Nitrite Negative (Negative); Protein, Urine (Dipstick) Trace mg/dL (Neg-Trace); Specific Gravity, Urine 1.019 (1.002-1.036)
[2017-12-31] MEDS ORDERED: MEROPENEM 1 GM/50 ML 1 GM in Premix Bag 1 BAG IVPB SCH (10:00)
--- NOTE | 2017-12-31 10:01 | RAD ---
FRONTAL VIEW CHEST: COMPARISON: 06/18/2017. INDICATION: Pain. FINDINGS: There is elevation of the right hemidiaphragm with adjacent atelectasis. The left lung is grossly cl ear. Cardiac silhouette is prominent as is the central pulmonary vasculature. IMPRESSION: 1. Elevated right hemidiaphragm with adjacent atelectasis. 2. Prominent cardiac silhouette and pulmonary vasculature. Correlate clinically. POS: C
[2017-12-31] MEDS ORDERED: ISOVUE-370 76%-LOCM 1 ML ONE (10:10)
[2017-12-31] MEDS ORDERED: Ketorolac Tromethamine 30 MG/ML VIAL ONE (10:28)
[2017-12-31] MEDS ORDERED: Acetaminophen 500 MG TAB ONE (10:44)
--- NOTE | 2017-12-31 11:23 | PDOC.FPRHP ---
- History of Present Illness Chief Complaint: abdominal pain History of Present Illness: This is a 57 yo M presenting with RUQ pain that began on Monday. Patient states the pain is 10/10 at its worse. He took some hydrocodone that he had at home which helped alleviate his pain. The pain is characterized as sharp and non radiating. The patient states the pain is located on diffusely on his anterior chest, more strongly in the RUQ and right clavicle. Patient had a similar pain in June 2017 and was worked up with ERCP. No gallstones were found as a cause for the pain. On exam, patient states his pain was much improved. Patient states he has had severe vomiting and nausea and has not been able to tolerate PO since Monday. Patient states no headache, vision changes, SOB, or LE swelling. Denies fever or chills. ED Course: Given 1gm meropenem, 2L NS, 4mg zofran, 4mg morphine - Allergies/Adverse Reactions Allergies Allergy/AdvReac Type Severity Reaction Status Date / Time codeine AdvReac Mild itches if Verified 12/31/17 12:08 he takes more than 2 - Home Medications Medication Instructions Recorded Confirmed Type Cetirizine HCl [Zyrtec] 10 mg PO HS 11/19/14 12/31/17 History Lisinopril 10 mg PO DAILY 11/19/14 12/31/17 History metFORMIN HCl [metFORMIN HCl ER] 500 mg PO HS 11/19/14 12/31/17 History rOPINIRole HCl [Requip] 0.25 mg PO QPM 06/19/17 12/31/17 History Aspirin [Aspirin Chewable Tablet] 81 mg PO DAILY 12/31/17 12/31/17 History Doxazosin [Cardura] 1 mg PO DAILY 12/31/17 12/31/17 History Omeprazole Magnesium [Prilosec] 10 mg PO DAILY 12/31/17 12/31/17 History glipiZIDE [Glipizide] 5 mg PO DAILY 12/31/17 12/31/17 History - History PMHx: DMII PSHx: Neck surgery, left shoulder surgery, right foot surgery FHx: Fam hx (father/daughter)- gallstones requiring cholecystectomy, mother - cancer, heart issues Social: Denies tobacco use - quit over 20 years ago; no alcohol use - prior alcoholic, 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 denies: palpitation, edema Gastrointestinal: reports: nausea, vomiting, abdominal pain. denies: diarrhea, constipation Skin: denies: rashes, lesions, jaundice Musculoskeletal: denies: pain, tenderness, swelling - Vital signs BP: 115/82 HR: 100 RR: 19 Tmax: 101.2 Pox: 97% on RA Wt: 99.79kg - Physical Exam Constitutional: NAD, awake, alert and oriented, well developed HEENT: normocephalic and atraumatic, EOMI, grossly normal vision, grossly normal hearing -HEENT: dry mucus membranes, no scleral icterus Neck: supple, FROM Chest: no-tender to palpation, no lesions Heart: normal S1/S2 -Heart: mildly tachycardic Lungs: CTAB, no respiratory distress, good air movement, no wheezing -Abdomen: Tense RUQ, tender on deep palpation more in RUQ, (+) spencer sign, no rebound tenderness, decreased bowel sounds Musculoskeletal: normal structure, normal tone, ROM grossly normal Neurological: no focal deficit Skin: no rash/lesions, capillary refill <2 seconds, no jaundice Psychiatric: normal mood and affect, good judgment and insight, intact recent and remote memory FMR H&P: Results - Labs Result Diagrams: 12/31/17 15:31 12/31/17 15:31 Lab results: WBC 13.8 thou/uL (4.8-10.8) H 12/31/17 08:16 Hgb 15.8 g/dL (14.0-18.0) 12/31/17 08:16 Hct 47.4 % (42.0-52.0) 12/31/17 08:16 MCV 94.7 fL (78.0-98.0) 12/31/17 08:16 Plt Count 145 thou/uL (130-400) 12/31/17 08:16 Band Neuts % (Manual) 4 % (5-11) L 12/31/17 08:16 Sodium 134 mmol/L (136-145) L 12/31/17 08:16 Potassium 4.5 mmol/L (3.5-5.1) 12/31/17 08:16 Chloride 96 mmol/L (98-107) L 12/31/17 08:16 Carbon Dioxide 22 mmol/L (22-29) 12/31/17 08:16 BUN 23 mg/dL (8.4-25.7) 12/31/17 08:16 Creatinine 2.05 mg/dL (0.6-1.3) H 12/31/17 08:16 Glucose 289 mg/dL (70-105) H 12/31/17 08:16 Lactic Acid 3.8 mmol/L (0.5-2.2) H 12/31/17 08:16 Calcium 9.6 mg/dL (7.8-10.44) 12/31/17 08:16 Total Bilirubin 2.4 mg/dL (0.2-1.2) H 12/31/17 08:16 AST 24 U/L (5-34) 12/31/17 08:16 ALT 36 U/L (8-55) 12/31/17 08:16 Alkaline Phosphatase 56 U/L (40-150) 12/31/17 08:16 Creatine Kinase 84 U/L (30-200) 12/31/17 08:16 Serum Total Protein 7.7 g/dL (6.0-8.3) 12/31/17 08:16 Albumin 4.5 g/dL (3.5-5.0) 12/31/17 08:16 Lipase 52 U/L (8-78) 12/31/17 08:16 Urine Ketones 15 mg/dL (Negative) H 12/31/17 09:18 Urine Blood Negative (Negative) 12/31/17 09:18 Urine Nitrite Negative (Negative) 12/31/17 09:18 Ur Leukocyte Esterase Negative (Negative) 12/31/17 09:18 - Radiology Interpretation US - abdomen Status: report reviewed by me (borderline size gallbladder wall, common duct at upper limits of normal in size, limited eval due to partial obstruction of RUQ due to persistent bowel) Chest x-ray Additional comment: Elevated right hemidiaphragm with adjuacent atelectasis, prominent cardiac silhouette and pulmonary vasculature FMR H&P: A/P - Problem List (1) Cholecystitis Current Visit: Yes Status: Acute Code(s): K81.9 - CHOLECYSTITIS, UNSPECIFIED (2) ANIBAL (acute kidney injury) Current Visit: Yes Status: Acute Code(s): N17.9 - ACUTE KIDNEY FAILURE, UNSPECIFIED (3) DM2 (diabetes mellitus, type 2) Current Visit: No Status: Acute (4) Leukocytosis Current Visit: Yes Status: Acute Code(s): D72.829 - ELEVATED WHITE BLOOD CELL COUNT, UNSPECIFIED (5) Hyperbilirubinemia Current Visit: Yes Status: Acute Code(s): E80.6 - OTHER DISORDERS OF BILIRUBIN METABOLISM (6) Increased anion gap metabolic acidosis Current Visit: Yes Status: Acute Code(s): E87.2 - ACIDOSIS - Plan This is a 57 yo male here for RUQ pain. RUQ abdominal pain - likely 2/2 to cholecystitis vs cholelithiasis vs cholangiitis - pt had work up in June 2017 including ERCP and EGD but no cause for pain was found at that time - Morphine and tylenol for pain - Zosyn for abx coverage - HIDA scan for tomorrow - GI consulted, Dr. Bryan - appreciate recs ANIBAL - Cr: 2.05, will continue to monitor - AM CMP - LR @ 175mls/hr Anion Gap Met Acidosis - 2/2 to lactic acidosis - Will continue to monitor Leukocytosis - WBC 13.8 - Will continue to monitor with AM CBC - See #1 for plan Hyperbilirubinemia - Bilib 2.4 - Will continue to trend - See #1 for plan Lactic Acidosis - 3.8 - See #1 for plan Elevated beta-hydroxybuterate - 0.62 - see plan #1 DMII - Pt NPO - ACHS, Mild SS - Will monitor glucose Code: FULL Prophylaxis: SCDs Dispo: will follow up results of HIDA scan and proceed care depending on result FMR H&P: Upper Level - Pertinent history 57 yo M w/ PMH of DMII and recent hospitalization for RUQ pain presents again for RUQ pain. Pt reports pain started Eyad evening when he laid down to go to bed. Denies associated with po intake. He reports pain with deep inspiration and associated nausea and vomiting. Also reports fever over last 3 days. Pain improved with narcotic medications. - Pertinent findings ROS: Gen: reports fever/chills HEENT: Denies headache, sore throat CV: Denies CP, palpitations Resp: Denies sob, reports pain with inspiration Abd: reports RUQ pain with inspiration and radiation into rt shoulder Neuro: Denies weakness, numbness/tingling - Plan Date/Time: 12/31/17 1120 I, Gen Coulter DO, have evaluated this patient and agree with findings/ plan as outlined by pr internship resident. Pertinent changes/additions are listed here. 57 yo M w/ 2 day h/o abdominal pain with associated nausea, vomiting and fever: 1) Sepsis 2/2 cholecystitis: WBC >12 and fever 100.4 w/ source - cont zosyn - IV LR @ 150mls/hr - trend WBCs - HIDA scan in AM as US was negative for cholelithiasis; however, pt had recent workup including EGD and ERCP that was negative for any obstructive process. He had an US showing thickened GB wall and a bile duct at the high limit of normal. Strongly suspect acalculous cholecystitis. HIDA to confirm. Speak with Gen surg when dx is confirmed. 2) ANIBAL: - s/p 2 L NS in ED - cont LR @ 150mls/hr - trend - monitor UOP 3) Anion gap metabolic acidosis: - 2/2 lactic acidosis - aggressive IV fluid resuscitation and trend daily BMP 4) DMII - NPO - ELOY - accuchecks ACHS Dispo: Stable, will await HIDA results cont IVF resuscitation and cont abx. Attending Addendum - Attending Addendum Date/Time: 12/31/17 1711 I personally evaluated the patient and discussed the management with Dr. Coulter/ Kobe I agree with the History, Examination, Assessment and Plan documented above with any addition or exceptions noted below. Patient with similar illness with extensive work up no stones documented and ERCP with sphincterotomy. Consider cholecystitis verse cholangitis will consult GI and Surgery.
[2017-12-31] MEDS ORDERED: Ondansetron HCl/PF 8 MG in Sodium Chloride 0.9% 50 ML IVPB SCH (11:30)
[2017-12-31] MEDS ORDERED: Dextrose 50% Abboject 50 ML SYRINGE SLOW IVP PRN (11:48)
[2017-12-31] MEDS ORDERED: Lactated Ringer's 1,000 ML IV SCH ×3 (11:48→16:30)
[2017-12-31] MEDS ORDERED: Bisacodyl 5 MG TAB PO PRN (11:48)
[2017-12-31] MEDS ORDERED: Acetaminophen 650 MG Suppository PR PRN (11:48)
[2017-12-31] MEDS ORDERED: Senokot 8.6 MG TAB PO PRN (11:48)
[2017-12-31] MEDS ORDERED: Dextrose 5% in Water 1,000 ML IV PRN (11:48)
[2017-12-31] MEDS ORDERED: Piperacillin/Tazobactam 3.375 GM in Sodium Chloride 0.9% 100 ML IVPB SCH (12:00)
[2017-12-31 12:09] VITALS: BMI 29.4
[2017-12-31 12:45] LABS: Lactic Acid 1.3 mmol/L (0.5-2.2)
[2017-12-31] MEDS ORDERED: Lorazepam 2 MG/ML VIAL ONE (15:33)
--- NOTE | 2017-12-31 15:38 | PDOC.EVN ---
Addendum entered and electronically signed by Gen Coulter DO 12/31/17 16: 03: Pts blood gas shows a primary respiratory acidosis/hyperventilation. CTA chest abd pelvis pending Original Note: Event Note - Event Note Event Note: Code jc called for difficulty breathing and rigors. Pt reported pain b/l lower chest and upper shoulder pain. Pain located new bottom of ribs b/l and LUQ /RUQ. Physical exam showed distressed pt, with good air entry b/l, sinus tachycardia without murmur. Belly tender and guarding present. Ordered cbc, cmp , abg and will send pt to have CTA chest abd pelvis for concern of PE vs AAA. Pts bp mildly elevated, tachycardic, O2 sats in the 70s on both finger and ear; however, poor plats. Will f/u with results. 2mg ativan ordered. Will check EKG. <Gen Coulter - Last Filed: 12/31/17 15:32> Attending Addendum - Attending Addendum Date/Time: 12/31/17 1136 I personally evaluated the patient and discussed the management with Dr. Coulter CT negative for Dissection or PE consider bacteremic episode verse ? stone passage with fever,rigors and chills. Will bolus fluids additional IV access and discuss case with GI continue Meropenem. <Trenton Suazo - Last Filed: 12/31/17 17:20>
[2017-12-31 15:39] LABS: Base Excess (BEa) -10.5 mEq/L (-2.0 to +3.0); CO2 Tension 42.9 mmHg (35.0-45.0); Calcium, Ionized 1.17 mmol/L (1.12-1.30); Carboxyhemoglobin (COHb) 2.2 gm% (0.0-3.0); Hemoglobin (Hb) 15.3 g/dL (14.0-18.0); O2 Tension (PaO2) 220.1 mmHg (80.0-100.0); Potassium - ABG Lab 4.85 mmol/L (3.70-5.30); pH, Arterial 7.22 (7.35-7.45)
[2017-12-31 15:40] LABS: ALV-art Gradient 439.275 (0-20); Puncture Site RRA
[2017-12-31 15:41] LABS: #Lymphocytes 1.7 thou/uL (1.20-3.40); #Monocytes 0.2 thou/uL (0.11-0.59); #Neutrophils 8.1 thou/uL (1.40-6.50); %Basophils 0.1 % (0.0-1.0); %Eosinophils 0.4 % (0.0-10.0); %Lymphocytes 16.8 % (21.0-51.0); %Monocytes 1.9 % (0.0-10.0); %Neutrophils 80.7 % (42.0-75.0); Hemoglobin 15.3 g/dL (14.0-18.0); Mean Corpuscular Hemoglobin 32.8 pg (27.0-31.0); Mean Corpuscular Volume 96.5 fL (78.0-98.0); Mean Platelet Volume 8.4 fL (7.4-10.4); Platelet Count 124 thou/uL (130-400); RBC Distribution Width 11.6 % (11.5-14.5); Red Blood Cell (RBC) Count 4.65 mill/uL (4.70-6.10)
--- NOTE | 2017-12-31 16:12 | CON ---
DATE OF CONSULTATION: 12/31/2017 GI INPATIENT CONSULTATION REQUESTING PHYSICIAN: Dr. Bullock. REASON FOR CONSULTATION: Right upper quadrant pain and elevated LFTs. HISTORY OF PRESENT ILLNESS: Cooper Bland is a 57-year-old man with a history of diabetes and multiple orthopedic surgeries. He was previously seen by my GI colleague, Dr. Juanjose Ball, back in 06/2017 wh en he was hospitalized for similar right upper quadrant pain and right-sided chest pain symptoms. At that time, he had significantly elevated LFTs and common bile duct measuring 7 mm on ultrasound. He underwent an ERCP with Dr. Walton and Dr. Parekh. The ERCP results were essentially normal. Biliary sphincterotomy was performed and there was no evidence of biliary dilation. There was only a small amount of sludge swept out of it otherwise clear and normal common bile duct. The patient did have r esolution of symptoms at that time and cholecystectomy was never performed. He states that he did pr win well until about a month afterward when he again started having similar symptoms, for which he d id not seek medical attention, this lasted only a few days, then he did well until just 2 days ago wh en he again started having pain throughout the right side of the chest in the right upper quadrant, w hich progressed to nausea and vomiting as well as low grade fever. He presented to the [facility] today and has just been admitted. He does have a mild leukocytosis to 13.8 and total bilirubin is up to 2.4, but note that other LFTs are all normal. Lactic acid was initially 3.8, this has come randa n to 1.3. He received meropenem in the emergency department and has now been started on Zosyn. Curr ently, he is feeling very well after having received morphine. He has remained hemodynamically stabl e. Repeat abdominal ultrasound shows a common bile duct measuring 6 mm. No shadowing gallstones, barrett rderline gallbladder wall and chest x-ray shows only an elevated right hemidiaphragm and some promine nt vasculature. The primary service is ordered a HIDA scan as well, which is still pending. REVIEW OF SYSTEMS: Full review of systems including constitutional, head, eyes, ears, nose, throat, GI, , cardiovascular, respiratory, musculoskeletal, and neurologic systems is negative except as no mary anne in the HPI. PAST MEDICAL HISTORY: Diabetes, multiple orthopedic surgeries, ERCP in 06/2017 with biliary sphincte rotomy and small amount of biliary sludge extracted from the common bile duct, otherwise normal chola ngiogram at that time. ALLERGIES: CODEINE. OUTPATIENT MEDICATIONS: Cetirizine, lisinopril, metformin, ropinirole, aspirin 81 mg daily, doxazosi n, omeprazole 10 mg daily, glipizide. FAMILY HISTORY: Father had gallstones. SOCIAL HISTORY: He is a former smoker. He used to drink alcohol, but quit all of that years ago. PHYSICAL EXAMINATION: VITAL SIGNS: Temperature 101.1, pulse 104, blood pressure 108/74, 94% oxygen saturation on 2 liters nasal cannula. GENERAL: A 57-year-old man lying in bed comfortably, in no acute distress. SKIN: No jaundice, no rash visible or palpable. EYES: No scleral icterus. Extraocular movements intact. ENT: Mucous membranes moist, no oral lesions. LYMPH: No submandibular or supraclavicular lymphadenopathy. THYROID: Nontender to palpation. HEART: Regular rate and rhythm. LUNGS: Clear to auscultation bilaterally. ABDOMEN: Bowel sounds are present, but hypoactive. The abdomen is soft, some tenderness to palpatio n in the right upper quadrant. No guarding or rebound tenderness. EXTREMITIES: No peripheral edema. VESSELS: Radial pulses 2+ bilaterally. NEUROLOGICAL: Cranial nerves II-XII intact bilaterally. No focal deficits. LABORATORY STUDIES: WBC 13.8, hemoglobin 15.8, platelets 145. Sodium 134, potassium 4.5, BUN 23, cr eatinine 2.05, glucose 211. Lactic acid initially 3.8, now down to 1.3, total bilirubin 2.4. Other LFTs all normal with alkaline phosphatase 56, AST 24, ALT 36, albumin 4.5. Lipase is normal at 52. IMAGING STUDIES: Chest x-ray shows elevation of the right hemidiaphragm. There is some prominent pu lmonary vasculature. Abdominal ultrasound shows borderline size gallbladder wall, but no shadowing s tones, common bile duct is 6 mm in size. No evidence of ascites. It is a limited examination due to bowel gas. ASSESSMENT AND PLAN: 1. Right upper quadrant pain, recurrent. 2. Hyperbilirubinemia, with otherwise normal LFTs. 3. Fever. The patient's presentation certainly does seem consistent with symptomatic gallbladder disease. Ther e were no shadowing stones seen on the ultrasound, but consider cholesterol stones or acalculous chol ecystitis. Note that bilirubin is mildly elevated, but other transaminases are normal, and common bi le duct measures only 6 mm, which is less than it was on previous presentation. In addition, he has already undergone an ERCP earlier this year with biliary sphincterotomy and essentially clean sweep o f the common bile duct, so the odds of a biliary obstructive process at this time would seem quite lo w. I agree with the antibiotics for now. HIDA scan is pending. I suspect the patient will end up n eeding cholecystectomy. I will also order just some additional lab workup up to exclude viral hepati tis or autoimmune hepatitis, etc. GI will continue to follow along. Please call any time with questions or concerns.
[2017-12-31 16:24] LABS: CKMB 0.6 ng/mL (0-6.6); Troponin I Less than 0.010 ng/mL (< 0.028)
[2017-12-31] MEDS: Acetaminophen 325 MG TAB PO PRN (16:39)
--- NOTE | 2017-12-31 16:47 | CT ---
CTA AORTIC DISSECTION PROTOCOL UTILIZING IV CONTRAST AND 3D REFORMATTED IMAGING: INDICATIONS: Abdominal pain. Shortness of breath. FINDINGS: No acute aortic stenosis, occlusion, or aneurysmal formation is evident. There are mild vascular chase cifications involving the abdominal aorta. The left renal artery is duplicated. Both renal arteries are widely patent. There is subsegmental atelectasis within the right lung base. There is gallbladder distention with pericholecystic inflammatory changes. There is fatty infiltration of the liver. The pancreas, adrenal glands, and kidneys are unremarkable. Scattered diverticula involving the colon. There is scattered degenerative and osteoarthritic change. IMPRESSION: 1. No acute aortic stenosis, occlusion, or aneurysmal formation. 2. Findings highly suspicious for acute cholecystitis. 3. Mild right basilar atelectasis. 4. Some limitation of examination due to motion artifact. Findings were called to Dr. Solo at 4:06 p.m. on 12/31/2017. CODE CR POS: [facility]
[2017-12-31 17:08] LABS: ALT (SGPT) 30 U/L (8-55); AST (SGOT) 21 U/L (5-34); Albumin 4.3 g/dL (3.5-5.0); Alkaline Phosphatase 56 U/L (40-150); Anion Gap 20 mmol/L (10-20); BUN (Urea Nitrogen) 23 mg/dL (8.4-25.7); Bilirubin, Total 2.2 mg/dL (0.2-1.2); Calc. Creatinine Clearance 62 mL/min (70-130); Calcium 9.2 mg/dL (7.8-10.44); Carbon Dioxide 22 mmol/L (22-29); Chloride 103 mmol/L (98-107); Estimated GFR-MDRD 38; Globulin 3.1 g/dL (2.4-3.5); Glucose 157 mg/dL (70-105); Lipase 73 U/L (8-78); Potassium 4.6 mmol/L (3.5-5.1); Protein, Total 7.4 g/dL (6.0-8.3); Sodium 140 mmol/L (136-145)
[2017-12-31] MEDS: Lactated Ringer's 1,000 ML IV SCH ×2 (17:08→23:32)
[2017-12-31] MEDS: MEROPENEM 1 GM/50 ML 1 GM in Premix Bag 1 BAG IVPB SCH (17:46)
[2017-12-31] MEDS: Clindamycin/D5W 600 MG in Premix Bag 1 BAG IVPB SCH ×2 (17:52→23:29)
--- NOTE | 2017-12-31 19:02 | CON ---
DATE OF CONSULTATION: 12/31/2017 CHIEF COMPLAINT: Epigastric pain. HISTORY OF PRESENT ILLNESS: This is a 57-year-old male who since Monday has been having some epigast soraya pain radiating to the back, associated with nausea, vomiting, fever. He is diabetic, but he had similar episode in June where they did an ERCP and sphincterotomy, but did not take out his gallblad tadeo. He reports a fever to 103. PAST MEDICAL HISTORY: Diabetes, enlarged prostate, history of alcoholism. PAST SURGICAL HISTORY: He has had a cervical disk surgery, shoulder surgery, bicep repair, and he redmond s had right foot surgery. MEDICATIONS: Metformin, glyburide, Zyrtec, Cialis, aspirin, Requip, and Cardura. ALLERGIES: CODEINE. SOCIAL HISTORY: He is . He manages car wash. No tobacco. He does not drink currently . PHYSICAL EXAMINATION: VITAL SIGNS: 99.9, pulse 120, blood pressure 91/35. GENERAL: He is awake, alert, lying still. HEENT: Unremarkable. LUNGS: Clear. HEART: Regular rate and rhythm. ABDOMEN: Soft, tender in the right upper quadrant to deep palpation. I think, I can feel a palpable gallbladder. LABORATORY AND X-RAY FINDINGS: His white count is 10, H&H 15 and 44, platelet count 124. Electrolyt es show an elevated glucose of 157. His creatinine is 1.84. His CO2 is 22, t. bili was 2.2. Rest o f his liver function tests are normal. He had an ultrasound that showed mild borderline wall thicken ing. Common bile duct at [address] scan, however, showed a distended gallbladder with so me pericholecystic fluid. ASSESSMENT: Probable acute acalculous cholecystitis. PLAN: Recommend laparoscopic cholecystectomy. Would do it tonight except the OR is only running one room. The neurosurgeon is doing several-layer mid laminectomy. Unless I get them to call in [facility] r crew, I cannot get this done tonight. I will try and get it done first thing in the morning.
[2017-12-31] MEDS ORDERED: Acetaminophen 500 MG TAB PO SCH (20:00)
[2018-01-01] MEDS: MEROPENEM 1 GM/50 ML 1 GM in Premix Bag 1 BAG IVPB SCH ×2 (02:05→14:32)
[2018-01-01 05:07] LABS: ALT (SGPT) 32 U/L (8-55); AST (SGOT) 31 U/L (5-34); Albumin 3.4 g/dL (3.5-5.0); Alkaline Phosphatase 61 U/L (40-150); Anion Gap 15 mmol/L (10-20); BUN (Urea Nitrogen) 18 mg/dL (8.4-25.7); Calc. Creatinine Clearance 89 mL/min (70-130); Calcium 8.6 mg/dL (7.8-10.44); Carbon Dioxide 23 mmol/L (22-29); Chloride 104 mmol/L (98-107); Estimated GFR-MDRD 58; Globulin 2.7 g/dL (2.4-3.5); Glucose 138 mg/dL (70-105); Potassium 4.6 mmol/L (3.5-5.1); Protein, Total 6.1 g/dL (6.0-8.3); Sodium 137 mmol/L (136-145)
[2018-01-01 05:25] LABS: HBCM Index 0.06 S/CO (0-0.79); HBSAg Index 0.23 S/CO (0-0.99); Hep A IgM AB Non-Reactive (NonReactive); Hep A IgM S/CO 0.07 S/CO (0-0.79); Hep B Surf Ag Non-Reactive S/CO (NonReactive); Hep C IgG Ab Non-Reactive (NonReactive); Hep C Index 0.04 S/CO (0-0.79); Hepatitis B Core IGM Abs Non-Reactive (NonReactive)
[2018-01-01 05:29] LABS: Band 7 % (5-11); Eosinophils 1 % (0-10); Hemoglobin 12.9 g/dL (14.0-18.0); Hypochromia SLIGHT = 6-15 cells (100X) (0-5/hpf); Lymphocytes 5 % (21-51); MDiff Complete? YES; Mean Corpuscular Hemoglobin 32.5 pg (27.0-31.0); Mean Corpuscular Volume 95.4 fL (78.0-98.0); Mean Platelet Volume 8.5 fL (7.4-10.4); Monocytes 3 % (0-10); Neutrophil 84 % (42-75); PLT Morphology Comment Appears Decreased; Platelet Count 83 thou/uL (130-400); RBC Distribution Width 11.5 % (11.5-14.5); Red Blood Cell (RBC) Count 3.99 mill/uL (4.70-6.10); White Blood Cell (WBC) Count 7.2 thou/uL (4.8-10.8)
[2018-01-01] MEDS: Clindamycin/D5W 600 MG in Premix Bag 1 BAG IVPB SCH ×4 (05:42→23:48)
[2018-01-01] MEDS: Lactated Ringer's 1,000 ML IV SCH ×6 (05:45→20:18)
--- NOTE | 2018-01-01 06:35 | PDOC.FM ---
- Subjective Subjective: Mr Bland continues to have right lower chest pain. Pain adequately controlled with morphine and tylenol but reports he is due for some. Denies SOB. No questions or concerns. Plan for cholecystectomy this AM. - Objective MAR Reviewed: Yes Vital Signs & Weight: Vital Signs (12 hours) Temp Pulse Resp BP Pulse Ox 01/01/18 03:14 97.8 F 101 H 20 105/64 98 01/01/18 00:00 98.8 F 103 H 20 97/59 L 100 12/31/17 20:00 99 12/31/17 19:30 103 F H 123 H 22 H 114/74 99 Weight Weight 98.43 kg I&O: 12/30/17 12/31/17 01/01/18 06:59 06:59 06:59 Intake Total 2366 Output Total 1900 Balance 466 Result Diagrams: 01/01/18 04:26 01/01/18 04:26 <Alta Delarosa - Last Filed: 01/01/18 11:17> - Objective Vital Signs & Weight: Vital Signs (12 hours) Temp Pulse Resp BP Pulse Ox 01/01/18 07:34 100.9 F H 115 H 18 119/77 94 L 01/01/18 07:20 99 01/01/18 03:14 97.8 F 101 H 20 105/64 98 01/01/18 00:00 98.8 F 103 H 20 97/59 L 100 Weight Weight 98.43 kg I&O: 12/31/17 01/01/18 01/02/18 06:59 06:59 06:59 Intake Total 2366 Output Total 1900 Balance 466 Result Diagrams: 01/01/18 04:26 01/01/18 04:26 <David Kerr - Last Filed: 01/01/18 12:02> Phys Exam - Physical Examination Constitutional: NAD Neck: supple Respiratory: no wheezing, clear to auscultation bilateral Cardiovascular: RRR, no significant murmur Gastrointestinal: soft, positive bowel sounds Tender to palpation RUQ Musculoskeletal: no edema, pulses present Psychiatric: normal affect, A&O x 3 Skin: cap refill <2 seconds <Alta Delarosa - Last Filed: 01/01/18 11:17> Dx/Plan (1) Cholecystitis Code(s): K81.9 - CHOLECYSTITIS, UNSPECIFIED Status: Acute (2) ANIBAL (acute kidney injury) Code(s): N17.9 - ACUTE KIDNEY FAILURE, UNSPECIFIED Status: Acute (3) Hyperbilirubinemia Code(s): E80.6 - OTHER DISORDERS OF BILIRUBIN METABOLISM Status: Acute (4) Increased anion gap metabolic acidosis Code(s): E87.2 - ACIDOSIS Status: Acute (5) Leukocytosis Code(s): D72.829 - ELEVATED WHITE BLOOD CELL COUNT, UNSPECIFIED Status: Acute (6) BPH (benign prostatic hyperplasia) Code(s): N40.0 - BENIGN PROSTATIC HYPERPLASIA WITHOUT LOWER URINRY TRACT SYMP Status: Acute (7) DM2 (diabetes mellitus, type 2) Status: Acute (8) RLS (restless legs syndrome) Status: Acute - Plan Plan: Sepsis 2/2 Cholecystitis - Leukocytosis, fever, tachycardia - Pt had work up in June 2017 including ERCP, EGD. Had transaminitis. CBD @ 7mm. Underwent biliary sphincterotomy. Had resolution of symptoms w/o cholecystectomy. - Received Meropenem in ED, switched to Zosyn for 1 dose prior to , transitioned back to Meropenem - Repeat RUQ US: CBD 6mm - Viral Hepatitis panel neg - GI consulted, Dr. Bryan, appreciate recs - Surgery Consulted, Dr Odonnell - Nette HOFFMAN 12/31, see event note, CTA neg for PE or other acute process Plan: - Morphine and tylenol for pain, will change Morphine from q4h to q2h - Continue Meropenem - Cholecystectomy this AM - Autoimmune hepatitis labs pending Thrombocytopenia - 145-> 85 - Likely dilutional - Not on lovenox for DVT ppx - Continue to monitor with AM labs Hyperbilirubinemia - Will continue to trend - Cholecystectomy today Mixed Primary Respiratory Acidosis, with Secondary Metabolic Acidosis - pH 7.22, pCO2 42.9 - Acute respiratory acidosis at [facility] [place] likely 2/2 tachypnea with hypoventilation - New O2 requirement 3L, will wean O2 - Aggressive IVF - Will continue to monitor Leukocytosis, resolved - 2/2 cholecystitis - Will continue to monitor with AM CBC ANIBAL, resolved - Continue to monitor with AM labs - LR @ 175mls/hr Lactic Acidosis, resolved Elevated beta-hydroxybuterate - 0.62 cHTN - Holding home lisinopril, doxazosin for hypotension DMII - NPO - Holding home Metformin, glyburide - ACHS, Mild SSI - Hypoglycemic protocol RLS - Home med Ropinorole BPH - Holding Doxazosin for hypotension Code Status: FULL DVT ppx: SCDs <Alta Delarosa - Last Filed: 01/01/18 11:17> Attending Addendum - Attending Addendum Date/Time: 01/01/18 1158 I personally evaluated the patient and discussed the management with Dr. Delarosa. I agree with the History, Examination, Assessment and Plan documented above with any addition or exceptions noted below. Patient admitted for suspected cholecystitis, possibly acalculous. GI and GenSurg on the case. He is going for lap jason this morning and will re- evaluate him after that time. <David Kerr - Last Filed: 01/01/18 12:02>
[2018-01-01] MEDS: Acetaminophen 325 MG TAB PO PRN ×3 (08:13→21:59)
[2018-01-01] MEDS ORDERED: Morphine 2 MG/ML SYRINGE SLOW IVP PRN (09:11)
[2018-01-01] MEDS ORDERED: Morphine 2 MG/ML SYRINGE ONE (09:34)
[2018-01-01] MEDS ORDERED: Ondansetron PF 4 MG/2 ML Vial ONE ×2 (09:44→14:49)
[2018-01-01] MEDS ORDERED: Midazolam HCl 2 mg/2 ml Vial ONE (10:05)
[2018-01-01] MEDS ORDERED: Iothalamate Meglumine 60% 50 ML VIAL FS ONE (10:35)
[2018-01-01] MEDS ORDERED: Bupivacaine/Epinephrine 0.25% 30 ML VIAL ONE (10:35)
[2018-01-01] MEDS ORDERED: Fentanyl 250 MCG/5 ML VIAL ONE (10:36)
[2018-01-01] MEDS ORDERED: hydrALAZINE 20 MG/ML VIAL SLOW IVP PRN (12:43)
[2018-01-01] MEDS ORDERED: Dextrose 50% Abboject 50 ML SYRINGE SLOW IVP PRN (12:43)
[2018-01-01] MEDS ORDERED: Promethazine HCl 25 MG/ML VIAL IM PRN ×2 (12:43→12:44)
[2018-01-01] MEDS ORDERED: Calcium Carbonate 500 MG ChewTAB PO PRN (12:43)
[2018-01-01] MEDS ORDERED: Dextrose 5% in Water 1,000 ML IV PRN (12:43)
[2018-01-01] MEDS ORDERED: Mag-Al 1200 mg/1200 mg/30 ML UDCUP PO PRN (12:43)
[2018-01-01] MEDS ORDERED: Promethazine HCl 25 MG/ML VIAL SLOW IVP PRN (12:44)
[2018-01-01] MEDS ORDERED: Ondansetron HCl/PF 4 MG/2 ML Vial IVP PRN (12:44)
--- NOTE | 2018-01-01 12:59 | OP ---
DATE OF PROCEDURE: 01/01/2018 PREOPERATIVE DIAGNOSES: Acute cholecystitis, acalculous with sepsis. SURGEON: Jovan Odonnell M.D. PROCEDURE PERFORMED: Laparoscopic subtotal cholecystectomy with drainage. INDICATIONS: The patient is a 57-year-old male who was admitted with a 3 day history of right upper quadrant pain, nausea, vomiting, fever. He had an ultrasound that showed no stones, but a slightly t hickened gallbladder wall. CT scan was suggestive of acute cholecystitis. He became more septic ove rnight, dropping his pressure, requiring addition of fluids and antibiotics. FINDINGS: He had a gangrenous gallbladder, intense inflammation preventing full extraction of the wh ole gallbladder so a subtotal cholecystectomy was performed. PROCEDURE: After informed consent was obtained, the patient was taken to the operating room and give n general endotracheal anesthesia. He was placed in the supine position. His abdomen was prepped an d draped in the usual fashion. Local anesthesia infiltrated subcutaneously and deep. A supraumbilic al incision was performed. The subcu divided sharply. The fascia grasped, two stay sutures of 0 Jevon ryl placed on either side of midline. Midline incised. Digital palpation revealed no local adhesion s. A blunt 10/12 mm trocar inserted. Pneumoperitoneum was created to a pressure of 15 mmHg. Zero d egree laparoscope inserted under direct vision, three 5 mm ports placed subcostally. The gallbladder was totally encased in omentum and it was not easy, but I was able to reflect some of this down to r eveal a necrotic gallbladder. The aspirating needle was inserted within the gallbladder and 100 mL o f bile removed from the gallbladder sent for culture and Gram stain. Then the gallbladder grasped an d just very slow and tediously it was attempted to be removed, but I reached a point where the inflam mation was just too severe to really do any more distal dissection, so I tried taking it on down and I were reflected it off the liver, but again I reached a point where I could not get to safely expose the duct and artery. For that reason, elected to amputate the upper two-thirds of the gallbladder w ith electrocautery. It was placed in an Endosac and removed from the abdomen in an Endosac. The rem aining distal gallbladder was closed with a running 0 V-Loc from superior to inferior. The wound was thoroughly irrigated and Remi powder was applied to the liver bed. A drain was placed and brought out through the most lateral stab wound and placed in that subhepatic space. Hemostasis was assured . Trocars and retractors removed. The fascia closed with interrupted 0 Vicryl suture. The skin rocío sed with interrupted 4-0 Rapide. Dermabond applied. The patient tolerated the procedure well and wa s transferred to ICU in serious but stable condition.
[2018-01-01] MEDS ORDERED: Lorazepam 2 MG/ML VIAL ONE (13:06)
[2018-01-01] MEDS ORDERED: Labetalol HCl 100 MG/20 ML VIAL ONE (13:08)
--- NOTE | 2018-01-01 14:00 | PRG ---
DATE OF SERVICE: 01/01/2018 SUBJECTIVE: The patient seen in the recovery room, status post cholecystectomy. The operative note mentions that the gallbladder was necrotic. OBJECTIVE: VITAL SIGNS: Temperature is 100.9, pulse 115, respiratory rate 18, blood pressure 119/77. CHEST: Clear. CARDIOVASCULAR: Regular rate and rhythm. ABDOMEN: Soft, bandaged. No organomegaly or masses appreciable. He is diffusely tender. LABORATORY DATA: Chemistries show a total bilirubin of 2.0. AST and ALT are normal. Alkaline phosp hatase is 61. White blood cell count is 7.2, hemoglobin 12.9, hematocrit 38.0. ASSESSMENT: Acute cholecystitis. RECOMMENDATIONS: 1. Continue postoperative management. 2. No further need for GI care, so we will sign off.
[2018-01-01 14:36] LABS: Actual Bicarbonate (HCO3a) 19.9 mEq/L (22-28); Base Excess (BEa) -5.1 mEq/L (-2.0 to +3.0); CO2 Tension 36.7 mmHg (35.0-45.0); Carboxyhemoglobin (COHb) 1.5 gm% (0.0-3.0); Hemoglobin (Hb) 12.9 g/dL (14.0-18.0); O2 Tension (PaO2) 89.1 mmHg (80.0-100.0); Potassium - ABG Lab 4.49 mmol/L (3.70-5.30); pH, Arterial 7.35 (7.35-7.45)
[2018-01-01 14:37] LABS: ALV-art Gradient 93.185 (0-20); Puncture Site LRA
[2018-01-01] MEDS ORDERED: Glycopyrrolate 0.2 MG/ML 5 ML SYRINGE ONE (14:49)
[2018-01-01] MEDS ORDERED: PROPOFOL 200 MG/20 ML VIAL ONE (14:49)
[2018-01-01] MEDS: Piperacillin/Tazobactam 3.375 GM in Sodium Chloride 0.9% 100 ML IVPB SCH ×2 (14:57→20:09)
[2018-01-01] MEDS: Morphine 4 MG/ML VIAL SLOW IVP PRN ×3 (15:01→21:59)
[2018-01-01] MEDS: Ondansetron PF 4 MG/2 ML Vial IVP PRN (15:02)
[2018-01-01] MEDS: Famotidine 20 MG TAB PO SCH (20:07)
[2018-01-01] MEDS: Famotidine/PF 20 mg/2ml Vial SLOW IVP SCH (20:09)
[2018-01-02] MEDS: Morphine 4 MG/ML VIAL SLOW IVP PRN ×6 (01:44→22:11)
[2018-01-02] MEDS: Ondansetron PF 4 MG/2 ML Vial IVP PRN ×4 (01:45→22:12)
[2018-01-02] MEDS: Piperacillin/Tazobactam 3.375 GM in Sodium Chloride 0.9% 100 ML IVPB SCH ×4 (01:45→20:14)
[2018-01-02] MEDS: Acetaminophen 325 MG TAB PO PRN ×3 (02:33→20:15)
[2018-01-02 04:21] LABS: #Eosinphils 0.1 thou/uL (0.0-0.7); #Lymphocytes 0.5 thou/uL (1.20-3.40); #Monocytes 0.5 thou/uL (0.11-0.59); #Neutrophils 5.4 thou/uL (1.40-6.50); %Basophils 0.2 % (0.0-1.0); %Eosinophils 1.5 % (0.0-10.0); %Monocytes 7.4 % (0.0-10.0); %Neutrophils 82.9 % (42.0-75.0); Hemoglobin 11.3 g/dL (14.0-18.0); Mean Corpuscular HGB CONC 33.5 g/dL (32.0-36.0); Mean Corpuscular Hemoglobin 31.8 pg (27.0-31.0); Mean Corpuscular Volume 95.1 fL (78.0-98.0); Mean Platelet Volume 8.5 fL (7.4-10.4); Platelet Count 90 thou/uL (130-400); RBC Distribution Width 11.6 % (11.5-14.5); Red Blood Cell (RBC) Count 3.54 mill/uL (4.70-6.10); White Blood Cell (WBC) Count 6.6 thou/uL (4.8-10.8)
[2018-01-02 04:37] LABS: ALT (SGPT) 36 U/L (8-55); AST (SGOT) 44 U/L (5-34); Albumin 2.9 g/dL (3.5-5.0); Alkaline Phosphatase 51 U/L (40-150); Anion Gap 12 mmol/L (10-20); BUN (Urea Nitrogen) 14 mg/dL (8.4-25.7); Bilirubin, Total 1.1 mg/dL (0.2-1.2); Calc. Creatinine Clearance 97 mL/min (70-130); Calcium 8.3 mg/dL (7.8-10.44); Carbon Dioxide 23 mmol/L (22-29); Chloride 106 mmol/L (98-107); Estimated GFR-MDRD 64; Globulin 2.4 g/dL (2.4-3.5); Glucose 163 mg/dL (70-105); Lipase 5 U/L (8-78); Potassium 3.9 mmol/L (3.5-5.1); Protein, Total 5.3 g/dL (6.0-8.3); Sodium 137 mmol/L (136-145)
[2018-01-02] MEDS: Lactated Ringer's 1,000 ML IV SCH ×4 (05:09→23:34)
[2018-01-02] MEDS: Clindamycin/D5W 600 MG in Premix Bag 1 BAG IVPB SCH ×4 (05:09→23:25)
--- NOTE | 2018-01-02 06:46 | PDOC.FM ---
- Subjective Subjective: Pt reports he has been tolerating ice chips fine and surgery has cleared him for clear liquids. Endorse pain that is relieved with morphine. Had temp of 100.4 overnight that resolved with Tylenol per nursing. He reports not using incentive spirometry but would be willing to start using it today. No questions or complaints this morning. - Objective MAR Reviewed: Yes Vital Signs & Weight: Vital Signs (12 hours) Temp Pulse Resp BP Pulse Ox 01/02/18 04:00 99.3 F 98 14 107/72 96 01/02/18 00:00 98.9 F 113 H 22 H 126/88 97 01/01/18 20:00 99.7 F H 116 H 26 H 131/69 99 Weight Admit Weight 98.43 kg Weight 98.43 kg I&O: 12/31/17 01/01/18 01/02/18 06:59 06:59 06:59 Intake Total 2366 1959 Output Total 1900 1035 Balance 466 925 Result Diagrams: 01/02/18 03:53 01/02/18 03:53 <Alta Delarosa - Last Filed: 01/02/18 11:48> - Objective Vital Signs & Weight: Vital Signs (12 hours) Temp Pulse Resp BP Pulse Ox 01/02/18 11:30 98.7 F 98 18 138/78 97 01/02/18 11:01 98.6 F 104 H 22 H 138/82 97 01/02/18 08:00 100 01/02/18 07:30 97.9 F 95 20 113/78 97 01/02/18 04:00 99.3 F 98 14 107/72 96 Weight Admit Weight 98.43 kg Weight 98.43 kg I&O: 01/01/18 01/02/18 01/03/18 06:59 06:59 06:59 Intake Total 2366 1959 Output Total 1900 1035 Balance 466 925 Result Diagrams: 01/02/18 03:53 01/02/18 03:53 <David Kerr - Last Filed: 01/02/18 12:31> Phys Exam - Physical Examination Constitutional: NAD Neck: supple Respiratory: no wheezing, clear to auscultation bilateral Cardiovascular: RRR, no significant murmur Gastrointestinal: soft drain coming out of right abdomen draining serosanguineous fluid Tender to palpation over RUQ Musculoskeletal: no edema, pulses present Psychiatric: normal affect, A&O x 3 <Alta Delarosa - Last Filed: 01/02/18 11:48> Dx/Plan (1) Cholecystitis Code(s): K81.9 - CHOLECYSTITIS, UNSPECIFIED Status: Acute (2) ANIBAL (acute kidney injury) Code(s): N17.9 - ACUTE KIDNEY FAILURE, UNSPECIFIED Status: Acute (3) Hyperbilirubinemia Code(s): E80.6 - OTHER DISORDERS OF BILIRUBIN METABOLISM Status: Acute (4) Increased anion gap metabolic acidosis Code(s): E87.2 - ACIDOSIS Status: Acute (5) Leukocytosis Code(s): D72.829 - ELEVATED WHITE BLOOD CELL COUNT, UNSPECIFIED Status: Acute (6) BPH (benign prostatic hyperplasia) Code(s): N40.0 - BENIGN PROSTATIC HYPERPLASIA WITHOUT LOWER URINRY TRACT SYMP Status: Acute (7) DM2 (diabetes mellitus, type 2) Status: Acute (8) RLS (restless legs syndrome) Status: Acute - Plan Plan: Sepsis 2/2 Cholecystitis s/p cholecystectomy - Leukocytosis, fever, tachycardia - Pt had work up in June 2017 including ERCP, EGD. Had transaminitis. CBD @ 7mm. Underwent biliary sphincterotomy. Had resolution of symptoms w/o cholecystectomy. - Viral Hepatitis panel neg - GI has signed off, Dr. Bryan, appreciate recs - Surgery Consulted, Dr Odonnell - Nette HOFFMAN 12/31, see event note, CTA neg for Aortic dissection or large PE Plan: - Morphine q2h PRN and tylenol for pain - Consider switching to PO Index for pain if pt is tolerating clear liquid diet. - Continue Meropenem - Cholecystectomy 01/01 - LR @ 120 - Autoimmune hepatitis labs pending - Incentive Spirometry - Transfer to [facility] Thrombocytopenia - 145-> 85 -> 90 - Likely dilutional - Not on lovenox for DVT ppx - Continue to monitor with AM labs Hyperbilirubinemia, resolved - Will continue to trend Metabolic Acidosis - Acute respiratory acidosis at [place] likely 2/2 tachypnea with hypoventilation - New O2 requirement 3L, will attempt to wean O2 - Aggressive IVF - Will continue to monitor Leukocytosis, resolved - 2/2 cholecystitis - Will continue to monitor with AM CBC ANIBAL, resolved - Continue to monitor with AM labs - LR @ 120mls/hr Lactic Acidosis, resolved Elevated beta-hydroxybuterate - 0.62 cHTN - Holding home lisinopril, doxazosin for hypotension DMII - Holding home Metformin, glyburide - ACHS, Mild SSI - Hypoglycemic protocol RLS - Home med Ropinorole BPH - Holding Doxazosin for hypotension Code Status: FULL DVT ppx: SCDs <Alta Delarosa - Last Filed: 01/02/18 11:48> Attending Addendum - Attending Addendum Date/Time: 01/02/18 0520 I personally evaluated the patient and discussed the management with Dr. Delarosa. I agree with the History, Examination, Assessment and Plan documented above with any addition or exceptions noted below. Patient doing well this morning, only complains of bloating s/p surgery. He is being treated for sepsis 2/2 necrotic gallbladder. Continue abx therapy and further mgmt per GenSurg. He will be transferred out of IMCU today to the surgery floor. Diet to advance per Surgery. Labs improved today. Wean O2 as tolerated. <David Kerr - Last Filed: 01/02/18 12:31>
--- NOTE | 2018-01-02 08:02 | PRG ---
DATE OF SERVICE: 01/02/2018 SUBJECTIVE: The patient states he feels better. He complains primarily of a dry mouth. He is takin g some ice chips. He denies nausea or vomiting. PHYSICAL EXAMINATION: VITAL SIGNS: Temperature is 99.3, pulse 98, blood pressure 107/72. GENERAL: He looks better. LUNGS: Clear. ABDOMEN: Soft, a little bit distended. He has had 185 out his ANNA, urine output was 850. LABORATORY DATA: This morning his white count is 6.6, H&H 11 and 33, platelet count 90. His T-bilir ubin is back down to 1.1. Glucose 163. Gram stain shows moderate gram positive rods and gram negati ve rods. ASSESSMENT: Gangrenous cholecystitis with sepsis, improved. PLAN: Begin clear liquids, get him out of bed.
[2018-01-02] MEDS: Famotidine 20 MG TAB PO SCH ×2 (09:15→20:15)
[2018-01-02] MEDS: Famotidine/PF 20 mg/2ml Vial SLOW IVP SCH ×2 (09:16→20:15)
[2018-01-02] MEDS: Enoxaparin Sodium 40 MG/0.4 ML SYRINGE SC SCH (10:33)
[2018-01-02] MEDS: hydrOXYzine 10 MG TAB PO PRN (12:51)
[2018-01-02] MEDS: Simethicone Chewable 80 MG TAB PO PRN (19:33)
[2018-01-03] MEDS: Piperacillin/Tazobactam 3.375 GM in Sodium Chloride 0.9% 100 ML IVPB SCH ×4 (01:55→20:07)
[2018-01-03] MEDS: Simethicone Chewable 80 MG TAB PO PRN ×2 (01:59→09:25)
[2018-01-03] MEDS: Acetaminophen 325 MG TAB PO PRN (02:51)
[2018-01-03] MEDS: Morphine 4 MG/ML VIAL SLOW IVP PRN (04:44)
[2018-01-03] MEDS: Ondansetron PF 4 MG/2 ML Vial IVP PRN (04:45)
[2018-01-03] MEDS: Clindamycin/D5W 600 MG in Premix Bag 1 BAG IVPB SCH ×4 (06:26→23:59)
[2018-01-03] MEDS: Lactated Ringer's 1,000 ML IV SCH ×3 (06:28→23:55)
--- NOTE | 2018-01-03 06:38 | PDOC.FM ---
- Subjective Subjective: Patient passed gas for the first time since surgery this AM. He reports abdominal bloating. Also reports "hearing voices from his oxygen tubing." Has been up walking several times per day. Tolerating liquid diet. Pain controlled with IV Morphine but would like to start taking oral medication instead for pain. Reports hoarseness and feeling throat fullness after surgery likely post intubation irritation. - Objective MAR Reviewed: Yes Vital Signs & Weight: Vital Signs (12 hours) Temp Pulse Resp BP Pulse Ox 01/03/18 04:00 98.2 F 79 20 156/78 H 98 01/03/18 00:00 98.1 F 85 16 124/66 95 01/02/18 20:35 93 L 01/02/18 20:00 98.6 F 103 H 18 164/82 H 93 L 01/02/18 19:44 99 20 95 Weight Admit Weight 98.43 kg Weight 98.43 kg I&O: 01/01/18 01/02/18 01/03/18 06:59 06:59 06:59 Intake Total 2366 1960 800 Output Total 1900 1035 70 Balance 466 925 730 Result Diagrams: 01/02/18 03:53 01/02/18 03:53 <Alta Delarosa - Last Filed: 01/03/18 12:03> - Objective Vital Signs & Weight: Vital Signs (12 hours) Temp Pulse Resp BP Pulse Ox 01/03/18 11:43 98.5 F 87 20 151/68 H 94 L 01/03/18 10:20 85 18 97 01/03/18 07:44 98 F 72 24 H 128/77 98 01/03/18 04:00 98.2 F 79 20 156/78 H 98 Weight Admit Weight 98.43 kg Weight 98.43 kg I&O: 01/02/18 01/03/18 01/04/18 06:59 06:59 06:59 Intake Total 1960 800 Output Total 1035 70 Balance 925 730 Result Diagrams: 01/02/18 03:53 01/02/18 03:53 <David Kerr - Last Filed: 01/03/18 12:22> Phys Exam - Physical Examination Constitutional: NAD Neck: supple Respiratory: no wheezing, clear to auscultation bilateral Cardiovascular: RRR, no significant murmur Gastrointestinal: soft, positive bowel sounds drain coming out of right abdomen draining minimal serosanguineous fluid. Appropriately tender to palpation in RUQ Musculoskeletal: no edema Neurological: moves all 4 limbs Psychiatric: normal affect, A&O x 3 Skin: cap refill <2 seconds <Alta Delarosa - Last Filed: 01/03/18 12:03> Dx/Plan (1) Cholecystitis Code(s): K81.9 - CHOLECYSTITIS, UNSPECIFIED Status: Acute (2) ANIBAL (acute kidney injury) Code(s): N17.9 - ACUTE KIDNEY FAILURE, UNSPECIFIED Status: Acute (3) Hyperbilirubinemia Code(s): E80.6 - OTHER DISORDERS OF BILIRUBIN METABOLISM Status: Acute (4) Increased anion gap metabolic acidosis Code(s): E87.2 - ACIDOSIS Status: Acute (5) Leukocytosis Code(s): D72.829 - ELEVATED WHITE BLOOD CELL COUNT, UNSPECIFIED Status: Acute (6) BPH (benign prostatic hyperplasia) Code(s): N40.0 - BENIGN PROSTATIC HYPERPLASIA WITHOUT LOWER URINRY TRACT SYMP Status: Acute (7) DM2 (diabetes mellitus, type 2) Status: Acute (8) RLS (restless legs syndrome) Status: Acute - Plan Plan: Sepsis (resolved) 2/2 Cholecystitis s/p cholecystectomy - Pt had work up in June 2017 including ERCP, EGD. Had transaminitis. CBD @ 7mm. Underwent biliary sphincterotomy. Had resolution of symptoms w/o cholecystectomy. - Viral Hepatitis panel neg - GI has signed off, Dr. Bryan, appreciate recs - Surgery Consulted, Dr Odonnell - Cholecystectomy 01/01 - [facility] 12/31, see event note Plan: - Morphine q2h PRN and tylenol for pain - Consider switching to PO [place] for pain if pt is tolerating clear liquid diet. - Continue Clindamycin - LR @ 120 - Autoimmune hepatitis labs pending - Incentive Spirometry Anxiety - Hydroxyzine PRN Thrombocytopenia - 145-> 85 -> 90 - Likely dilutional - Not on lovenox for DVT ppx Hyperbilirubinemia, resolved Metabolic Acidosis - Acute respiratory acidosis at [facility] [place] likely 2/2 tachypnea with hypoventilation - Continue to wean O2, currently at 1L - Will continue to monitor Leukocytosis, resolved - 2/2 cholecystitis - Will continue to monitor with AM CBC ANIBAL, resolved - Continue to monitor with AM labs - LR @ 120mls/hr Lactic Acidosis, resolved Elevated beta-hydroxybuterate - 0.62 cHTN - Holding home lisinopril, doxazosin for hypotension DMII - Holding home Metformin, glyburide - ACHS, Mild SSI - Hypoglycemic protocol RLS - Home med Ropinorole BPH - Holding Doxazosin for hypotension Code Status: FULL DVT ppx: SCDs <Alta Delarosa - Last Filed: 01/03/18 12:03> Attending Addendum - Attending Addendum Date/Time: 01/03/18 1221 I personally evaluated the patient and discussed the management with Dr. Delarosa. I agree with the History, Examination, Assessment and Plan documented above with any addition or exceptions noted below. Patient doing well. Tolerating diet, ambulating and off supplemental O2. Continue abx per surgery recs. Anticipate he is nearing discharge in next 1-2 days. Gallbladder culture shows baires sensitive e coli as likely cause of his sepsis syndrome. <David Kerr - Last Filed: 01/03/18 12:22>
[2018-01-03] MEDS: Famotidine/PF 20 mg/2ml Vial SLOW IVP SCH ×2 (08:01→20:08)
[2018-01-03] MEDS: Famotidine 20 MG TAB PO SCH ×2 (08:01→20:08)
[2018-01-03] MEDS ORDERED: HYDROcodone/Acetaminophen 5/325 mg Tablet PO PRN (08:48)
[2018-01-03] MEDS ORDERED: Chloraseptic Spray 180 ml Bottle PO PRN (09:16)
[2018-01-03] MEDS: Enoxaparin Sodium 40 MG/0.4 ML SYRINGE SC SCH (09:25)
--- NOTE | 2018-01-03 09:27 | PRG ---
DATE OF SERVICE: 01/03/2018 The patient reports that he is having a lot of throat pain. He is reporting some upper respiratory w heezing and rhonchi. He just finally passed gas. He was complaining of abdominal bloating, but he i s now passing flatus. His pain is getting better. On examination, he does have some upper respirato ry wheezing. Lungs are otherwise, clear. His abdomen is distended, but fairly soft, really no significant tenderness. Incision have a rim of about a centimeter and a half of redness around every single one of them, but there is no fluctuance. Drain output has been 70 mL of serosanguineous fluid. His cultures are growing out E. coli and a b acillus species not, Anthrax, it interact at sensitive to the antibiotics. ASSESSMENT AND PLAN: Ileus, resolving after sepsis from a gangrenous gallbladder slowly getting bett er. PLAN: I told him to ambulate, to just limit p.o. until he is really passing gas well. Put some heat on the incisions.
[2018-01-03] MEDS ORDERED: Ibuprofen 600 MG TAB PO PRN (09:33)
[2018-01-03] MEDS: hydrOXYzine 10 MG TAB PO PRN ×3 (09:33→23:58)
[2018-01-03] MEDS: Bacitracin Zinc 1 Packet TOP SCH ×3 (10:20→20:08)
[2018-01-03] MEDS: HYDROcodone/Acetaminophen 5/325 mg Tablet PO PRN ×3 (12:43→23:59)
[2018-01-03] MEDS: HumaLOG 300 UNITS/3 ML VIAL SC PRN ×2 (12:44→21:01)
[2018-01-03 14:43] LABS: ANA Symphony (Qualitative) Negative (Negative); EliA Vaculitis New Method **** NEW METHOD ****; Mitochondrial Ab 0.6 U/mL (<4 Negative); dsDNA IgG Antibody 0.9 IU/mL (<10 Negative)
[2018-01-04] MEDS: Piperacillin/Tazobactam 3.375 GM in Sodium Chloride 0.9% 100 ML IVPB SCH ×4 (02:19→20:14)
[2018-01-04] MEDS: Clindamycin/D5W 600 MG in Premix Bag 1 BAG IVPB SCH (06:02)
[2018-01-04] MEDS: hydrOXYzine 10 MG TAB PO PRN ×3 (06:02→22:59)
[2018-01-04] MEDS: HYDROcodone/Acetaminophen 5/325 mg Tablet PO PRN ×3 (06:03→22:58)
--- NOTE | 2018-01-04 06:10 | EKG ---
Test Reason : Blood Pressure : / mmHG Vent. Rate : 133 BPM Atrial Rate : 133 BPM P-R Int : 166 ms QRS Dur : 088 ms QT Int : 270 ms P-R-T Axes : 030 -35 004 degrees QTc Int : 401 ms Sinus tachycardia Left axis deviation Anterolateral infarct (cited on or before 19-NOV-2014) Abnormal ECG When compared with ECG of 18-JUN-2017 20:43, Vent. rate has increased BY 70 BPM Questionable change in initial forces of Lateral leads Inverted T waves have replaced nonspecific T wave abnormality in Inferior leads Confirmed by ANNABELLA FELDER ([id number]) on 01/04/2018 6:10:08 AM Referred By: SANDRA Confirmed By:ANNABELLA FELDER
--- NOTE | 2018-01-04 06:39 | PDOC.FM ---
- Subjective Subjective: Pt reports feeling well this AM. Still passing gas, no BM. He continues to ambulate throughout the halls and PT is now working with him. Denies hearing the voices now that the O2 has been removed. This was likely caused by the O2. Reports Dr Odonnell has been in to see him today and the plan is for him to be NPO this morning until he goes back to OR to have drain placed. He actually denies pain but has been taking the [place] as often as prescribed due to the worry the pain may return if he does not take it. He is also taking Zofran as often as prescribed because the morphine resulted in nausea. - Objective MAR Reviewed: Yes Vital Signs & Weight: Vital Signs (12 hours) Temp Pulse Resp BP Pulse Ox 01/04/18 04:54 98.1 F 74 19 163/80 H 94 L 01/03/18 20:35 94 L 01/03/18 20:12 98.5 F 98 19 130/65 94 L Weight Admit Weight 98.43 kg Weight 98.43 kg I&O: 01/02/18 01/03/18 01/04/18 06:59 06:59 06:59 Intake Total 1960 800 880 Output Total 1035 70 25 Balance 925 730 855 Result Diagrams: 01/04/18 09:40 01/02/18 03:53 Phys Exam - Physical Examination Constitutional: NAD Neck: supple Respiratory: no wheezing, clear to auscultation bilateral Cardiovascular: RRR, no significant murmur Gastrointestinal: soft, positive bowel sounds Slim sinha drain with minimal serosanguineous fluid Neurological: moves all 4 limbs Psychiatric: normal affect, A&O x 3 Skin: cap refill <2 seconds Dx/Plan (1) Cholecystitis Code(s): K81.9 - CHOLECYSTITIS, UNSPECIFIED Status: Acute (2) ANIBAL (acute kidney injury) Code(s): N17.9 - ACUTE KIDNEY FAILURE, UNSPECIFIED Status: Acute (3) Hyperbilirubinemia Code(s): E80.6 - OTHER DISORDERS OF BILIRUBIN METABOLISM Status: Acute (4) Increased anion gap metabolic acidosis Code(s): E87.2 - ACIDOSIS Status: Acute (5) Leukocytosis Code(s): D72.829 - ELEVATED WHITE BLOOD CELL COUNT, UNSPECIFIED Status: Acute (6) BPH (benign prostatic hyperplasia) Code(s): N40.0 - BENIGN PROSTATIC HYPERPLASIA WITHOUT LOWER URINRY TRACT SYMP Status: Acute (7) DM2 (diabetes mellitus, type 2) Status: Acute (8) RLS (restless legs syndrome) Status: Acute - Plan Plan: Sepsis (resolved) 2/2 Cholecystitis s/p cholecystectomy - Pt had work up in June 2017 including ERCP, EGD. Had transaminitis. CBD @ 7mm. Underwent biliary sphincterotomy. Had resolution of symptoms w/o cholecystectomy. - Viral Hepatitis panel & autoimmune hep labs neg - Surgery Consulted, Dr Odonnell, Cholecystectomy 01/01 - Incentive Spirometry Plan: - [place] 5/325, Ibuprofen and tylenol for pain - Discontinue Clindamycin, will continue Zosyn - LR @ 120 - Currently NPO to have drain placed today - Depending on pts pain after procedure today will wean [place] as pt is taking it more for prophylaxis and it is hard to gauge if he is still having pain. Anxiety - Hydroxyzine PRN Thrombocytopenia - 145-> 85 -> 90 - Likely dilutional - Not on lovenox for DVT ppx Hyperbilirubinemia, resolved Metabolic Acidosis, resolved - Acute respiratory acidosis at code green likely 2/2 tachypnea with hypoventilation Leukocytosis, resolved - 2/2 cholecystitis ANIBAL, resolved - Continue to monitor with AM labs - LR @ 120mls/hr Lactic Acidosis, resolved Elevated beta-hydroxybuterate - 0.62 cHTN - Holding home lisinopril, doxazosin for hypotension DMII - Holding home Metformin, glyburide - ACHS, Mild SSI - Hypoglycemic protocol RLS - Home med Ropinorole BPH - Holding Doxazosin for hypotension Code Status: FULL DVT ppx: SCDs
--- NOTE | 2018-01-04 07:50 | PRG ---
DATE OF SERVICE: 01/04/2018 SUBJECTIVE: The patient says he feels a lot better today, less pain, no nausea or vomiting. PHYSICAL EXAMINATION: VITAL SIGNS: His temperature is 98.1, pulse 74, blood pressure 163/80. He does look better. His incisions look a lot better, but his ANNA is putting out yifan bile. He has had about 85 mL out. ASSESSMENT: Bile leak. PLAN: I have asked GI to see him because we just did a subtotal cholecystectomy and that was a risk, so he will need an ERCP and possible stent placement.
[2018-01-04] MEDS: Famotidine/PF 20 mg/2ml Vial SLOW IVP SCH ×2 (08:58→20:14)
[2018-01-04] MEDS: Bacitracin Zinc 1 Packet TOP SCH ×3 (09:06→20:14)
[2018-01-04] MEDS: Famotidine 20 MG TAB PO SCH ×2 (09:14→20:13)
[2018-01-04 10:10] LABS: #Eosinphils 0.4 thou/uL (0.0-0.7); #Lymphocytes 1.3 thou/uL (1.20-3.40); #Monocytes 0.9 thou/uL (0.11-0.59); #Neutrophils 4.1 thou/uL (1.40-6.50); %Basophils 0.3 % (0.0-1.0); %Eosinophils 5.5 % (0.0-10.0); %Lymphocytes 19.3 % (21.0-51.0); %Monocytes 13.6 % (0.0-10.0); %Neutrophils 61.3 % (42.0-75.0); Mean Corpuscular HGB CONC 31.8 g/dL (32.0-36.0); Mean Corpuscular Hemoglobin 30.2 pg (27.0-31.0); Mean Corpuscular Volume 94.8 fL (78.0-98.0); Mean Platelet Volume 7.5 fL (7.4-10.4); Platelet Count 194 thou/uL (130-400); RBC Distribution Width 11.8 % (11.5-14.5); Red Blood Cell (RBC) Count 3.98 mill/uL (4.70-6.10); White Blood Cell (WBC) Count 6.7 thou/uL (4.8-10.8)
[2018-01-04] MEDS: Enoxaparin Sodium 40 MG/0.4 ML SYRINGE SC SCH (10:21)
[2018-01-04 10:33] LABS: ALT (SGPT) 28 U/L (8-55); AST (SGOT) 29 U/L (5-34); Albumin 3.2 g/dL (3.5-5.0); Alkaline Phosphatase 63 U/L (40-150); Anion Gap 12 mmol/L (10-20); BUN (Urea Nitrogen) 10 mg/dL (8.4-25.7); Bilirubin, Direct 0.5 mg/dL (0.1-0.3); Calc. Creatinine Clearance 113 mL/min (70-130); Calcium 8.7 mg/dL (7.8-10.44); Carbon Dioxide 26 mmol/L (22-29); Chloride 104 mmol/L (98-107); Estimated GFR-MDRD 77; Glucose 138 mg/dL (70-105); Potassium 3.5 mmol/L (3.5-5.1); Protein, Total 6.3 g/dL (6.0-8.3); Sodium 138 mmol/L (136-145)
--- NOTE | 2018-01-04 11:52 | PDOC.EVN ---
Attending Addendum - Attending Addendum Date/Time: 01/04/18 3038 I personally evaluated the patient and discussed the management with Dr. Delarosa. I agree with the History, Examination, Assessment and Plan documented in her progress note with any addition or exceptions noted below. Patient overall feeling improved. Having some bile leak in ANNA drain and GenSurg has reconsulted GI for possible intervention. Continue current support and await further recs after procedure. Stopping clindamycin as Zosyn should be adequate coverage for his necrotic gallbladder infection.
[2018-01-04] MEDS ORDERED: Iothalamate Meglumine 60% 50 ML VIAL FS ONE (12:41)
[2018-01-04] MEDS ORDERED: Indomethacin 50 MG SUPP ONE (12:41)
[2018-01-04] MEDS ORDERED: Midazolam HCl 2 mg/2 ml Vial ONE (12:51)
[2018-01-04] MEDS ORDERED: Promethazine HCl 25 MG/ML VIAL IM PRN (13:39)
[2018-01-04] MEDS ORDERED: Promethazine HCl 25 MG/ML VIAL SLOW IVP PRN (13:39)
[2018-01-04] MEDS ORDERED: Ondansetron HCl/PF 4 MG/2 ML Vial IVP PRN (13:39)
--- NOTE | 2018-01-04 13:40 | OP ---
PREOPERATIVE DIAGNOSIS: Bile leak. DESCRIPTION OF PROCEDURE: After informed consent was obtained, the patient was placed in the left la teral decubitus position. Anesthesia was administered per the Anesthesia Department. Side-viewing e ndoscope was inserted into the esophagus under direct visualization with ease and passed to the secon d portion of the duodenum with ease. Second portion of the duodenum, duodenal bulb were normal. No mucosal abnormalities were noted. A balloon was inserted into the common bile duct. Cholangiogram r evealed a fairly significant leak from the cystic duct. A wire was passed through the balloon and th en the balloon was removed. Over the guidewire, a 9 cm 11.5 [place] stent was passed without difficul ty. Good bile flow was noted once the wire and the introducer were removed. ASSESSMENT: 1. Bile leak. 2. Status post stent placement. RECOMMENDATIONS: Follow bile output.
--- NOTE | 2018-01-04 16:43 | RAD ---
ERCP: 01/04/18 COMPARISON: None. HISTORY: ERCP. FINDINGS: A single image from ERCP is provided. There is inadequate opacification of the biliary tree on this s snow view. IMPRESSION: ERCP as above. The faint opacification of the biliary tree makes the provided image nondiagnostic. POS: SHANNON
[2018-01-04] MEDS: Lactated Ringer's 1,000 ML IV SCH ×2 (17:37→20:23)
[2018-01-05] MEDS: Piperacillin/Tazobactam 3.375 GM in Sodium Chloride 0.9% 100 ML IVPB SCH ×3 (01:29→15:54)
[2018-01-05] MEDS: HYDROcodone/Acetaminophen 5/325 mg Tablet PO PRN (03:22)
--- NOTE | 2018-01-05 06:14 | PDOC.FM ---
- Subjective Subjective: Eating and drinking. Had dinner last night and breakfast this morning. Pain is well controlled. Complaint of diarrhea, ready to transition to solid foods. - Objective MAR Reviewed: Yes Vital Signs & Weight: Vital Signs (12 hours) Temp Pulse Resp BP Pulse Ox 01/05/18 04:10 98.1 F 64 18 149/75 H 96 01/05/18 00:37 98.1 F 96 18 134/66 96 01/04/18 20:00 98.1 F 64 16 141/84 H 96 Weight Admit Weight 98.43 kg Weight 98.43 kg I&O: 01/03/18 01/04/18 01/05/18 06:59 06:59 06:59 Intake Total 084 584 8645 Output Total 70 85 335 Balance 730 795 805 Result Diagrams: 01/04/18 09:40 01/04/18 09:40 <Alta Delarosa - Last Filed: 01/05/18 09:36> - Objective Vital Signs & Weight: Vital Signs (12 hours) Temp Pulse Resp BP Pulse Ox 01/05/18 07:25 97.7 F 54 L 14 141/66 H 95 01/05/18 04:10 98.1 F 64 18 149/75 H 96 01/05/18 00:37 98.1 F 96 18 134/66 96 Weight Admit Weight 98.43 kg Weight 98.43 kg I&O: 01/04/18 01/05/18 01/06/18 06:59 06:59 06:59 Intake Total 880 1140 Output Total 85 375 Balance 795 765 Result Diagrams: 01/04/18 09:40 01/04/18 09:40 <David Kerr - Last Filed: 01/05/18 11:06> Phys Exam - Physical Examination Constitutional: NAD Neck: supple Normal effort Gastrointestinal: no distention ANNA drain with minimal output Neurological: moves all 4 limbs Psychiatric: normal affect, A&O x 3 Skin: normal turgor <Alta Delarosa - Last Filed: 01/05/18 09:36> Dx/Plan (1) Cholecystitis Code(s): K81.9 - CHOLECYSTITIS, UNSPECIFIED Status: Acute (2) ANIBAL (acute kidney injury) Code(s): N17.9 - ACUTE KIDNEY FAILURE, UNSPECIFIED Status: Acute (3) Hyperbilirubinemia Code(s): E80.6 - OTHER DISORDERS OF BILIRUBIN METABOLISM Status: Acute (4) Increased anion gap metabolic acidosis Code(s): E87.2 - ACIDOSIS Status: Acute (5) Leukocytosis Code(s): D72.829 - ELEVATED WHITE BLOOD CELL COUNT, UNSPECIFIED Status: Acute (6) BPH (benign prostatic hyperplasia) Code(s): N40.0 - BENIGN PROSTATIC HYPERPLASIA WITHOUT LOWER URINRY TRACT SYMP Status: Acute (7) DM2 (diabetes mellitus, type 2) Status: Acute (8) RLS (restless legs syndrome) Status: Acute - Plan Plan: Sepsis (resolved) 2/2 Cholecystitis s/p cholecystectomy - complicated by bile leak s/p stent placement 01/04 - Pt had work up in June 2017 including ERCP, EGD. Had transaminitis. CBD @ 7mm. Underwent biliary sphincterotomy. Had resolution of symptoms w/o cholecystectomy. - Viral Hepatitis panel & autoimmune hep labs neg - Surgery Consulted, Dr Odonnell, Cholecystectomy 01/01 - Incentive Spirometry Plan: - [place] 5/325, Ibuprofen and tylenol for pain - Continue Zosyn - LR @ 120 Bile leak - cystic duct bile leak after jason s/p ERCP with stent placement 01/04 Anxiety - Hydroxyzine PRN Thrombocytopenia - 145-> 85 -> 90 - Likely dilutional - Not on lovenox for DVT ppx Hyperbilirubinemia, resolved Metabolic Acidosis, resolved - Acute respiratory acidosis at code green likely 2/2 tachypnea with hypoventilation Leukocytosis, resolved - 2/2 cholecystitis ANIBAL, resolved - Continue to monitor with AM labs - LR @ 120mls/hr Lactic Acidosis, resolved Elevated beta-hydroxybuterate - 0.62 cHTN - Holding home lisinopril, doxazosin for hypotension DMII - Holding home Metformin, glyburide - ACHS, Mild SSI - Hypoglycemic protocol RLS - Home med Ropinorole BPH - Holding Doxazosin for hypotension Code Status: FULL DVT ppx: SCDs <Alta Delarosa - Last Filed: 01/05/18 09:36> Attending Addendum - Attending Addendum Date/Time: 01/05/18 1104 I personally evaluated the patient and discussed the management with Dr. Delarosa. I agree with the History, Examination, Assessment and Plan documented above with any addition or exceptions noted below. Patient feeling well this morning. Had biliary stent placed yesterday due to bile leak and now ANNA drain is not draining as much. Tolerating diet well. Had some loose stools that is likely due to only liquid intake as well as Clindamycin as GI side effect. Will check CDiff to ensure no serious etiology. Await further surgery recs. Afebrile and labs all normalizing. <David Kerr - Last Filed: 01/05/18 11:06>
[2018-01-05] MEDS: Famotidine 20 MG TAB PO SCH (08:46)
[2018-01-05] MEDS ORDERED: HYDROcodone/Acetaminophen 5/325 mg Tablet PO PRN ×2 (10:05)
[2018-01-05] MEDS: Lactated Ringer's 1,000 ML IV SCH (13:13)
[2018-01-05] MEDS: Enoxaparin Sodium 40 MG/0.4 ML SYRINGE SC SCH (13:15)
[2018-01-05] MEDS: HumaLOG 300 UNITS/3 ML VIAL SC PRN ×2 (13:15→17:28)
[2018-01-05] MEDS: Bacitracin Zinc 1 Packet TOP SCH (13:15)
--- NOTE | 2018-01-05 13:23 | PRG ---
DATE OF SERVICE: 01/05/2018 SUBJECTIVE: The patient is overall feeling better. He just ate and has a good appetite. He is havi ng bowel movements that are brown in color. OBJECTIVE: VITAL SIGNS: Temperature 98.0, pulse 76, respiratory rate 16, blood pressure 146/73. CHEST: Clear. CARDIOVASCULAR: Regular rate and rhythm. ABDOMEN: Soft, somewhat tender in the right upper quadrant, fluid out from a ANNA shows 375 mL. LABORATORY: Shows a white blood cell count 6.7, hemoglobin 12. ASSESSMENT: Bile leak -- clinically improved after stent placement. RECOMMENDATIONS: 1. Keep stent in place for 6-8 weeks. 2. Deferred to Dr. Odonnell as far as discharge from GI standpoint, he can go home.
[2018-01-05] MEDS: Famotidine/PF 20 mg/2ml Vial SLOW IVP SCH (13:30)
[2018-01-05 16:35] VITALS: BP 142/62; TEMP 98.7
--- NOTE | 2018-01-06 00:49 | DIS-2 ---
DATE OF ADMISSION: 12/31/2017 DATE OF DISCHARGE: 01/05/2018 RESIDENT: Alta Delarosa, PGY-1. ADMITTING ATTENDING: Trenton Suazo MD DISCHARGE ATTENDING: David Kerr MD CONSULTATIONS: 1. General Surgery (Dr. Odonnell). 2. Gastrointestinal (Dr. Bryan and Dr. Ball). PROCEDURES: 1. CT dissection, no acute aortic stenosis, occlusion, or aneurysm. Findings highly suspicious for acute cholecystitis. Mild right basilar atelectasis. 2. Abdominal ultrasound, borderline-sized gallbladder wall. The common duct is upper limits of normal in size. 3. Chest x-ray elevated right hemidiaphragm with adjacent atelectasis. Prominent cardiac silhouette and pulmonary vasculature. 4. Laparoscopic subtotal cholecystectomy with drainage. Findings, gangrenous gallbladder intense inflammation preventing full extraction of the whole gallbladder, so a subtotal cholecystectomy was performed. 5. ERCP x-ray a faint opacification of the biliary tree. bile leak, status post stent placement. PRIMARY DIAGNOSES: 1. Sepsis secondary to cholecystitis, status post cholecystectomy complicated by bile leak, status post stent placement. 2. Bile leak, status post stent placement. SECONDARY DIAGNOSES: 1. Anxiety. 2. Thrombocytopenia. 3. Hyperbilirubinemia, resolved. 4. Metabolic acidosis, resolved. 5. Leukocytosis, resolved. 6. Acute kidney injury, resolved. 7. Lactic acidosis, resolved. 8. Elevated beta hydroxybutyrate. 9. Chronic hypertension. 10. Type 2 diabetes. 11. Restless leg syndrome. 12. BPH. DISCHARGE MEDICATIONS: 1. Lisinopril 10 mg. 2. Cetirizine 10 mg. 3. Metformin 500 mg at bedtime. 4. Ropinirole 0.25 mg daily at bedtime. 5. Omeprazole 20 mg daily. 6. Doxazosin 1 mg daily. 7. Aspirin 81 mg daily. 8. Glipizide 5 mg daily. 9. Hydroxyzine 10 mg q.6 hours p.r.n. 10. Metronidazole 500 mg q.6 hours. 11. [place] 5/325 p.r.n. 12. Cipro for 7 days. DISCONTINUED MEDICATIONS: None. HISTORY OF PRESENT ILLNESS AND HOSPITAL COURSE: Mr. Bland is a 57-year-old male who presented with right upper quadrant pain found on CT and right upper quadrant ultrasound to have acute cholecystitis. Patient had had similar pain back in 06/2017 and was worked up with an ERCP. There were no gallstones found as a cause for the pain, he underwent sphincterotomy and had resolution of the symptoms at that time. At this admission, his labs were notable for leukocytosis at 13.8, elevated creatinine at 2.05, elevated glucose 289, hyperbilirubinemia 2.4, lactic acidosis 3.8. Beta hydroxybutyrate 0.62. Hepatitis and autoimmune hepatitis labs were negative. Lactic acidosis and ANIBAL resolved with IV fluids. He was started on clindamycin and Zosyn for infection. GI and General Surgery was consulted. Pt had cholecystectomy . There was a code green called on 12/31/2017 for difficulty breathing and rigors. Patient reported chest pain and upper shoulder pain. CTA was performed for concern of PE versus AAA. This test was negative. He was feeling very anxious and less likely an ABG was obtained, pH was 7.22 pCO2 of 42.9, pO2 of 228.1. This was attributed to patient hyperventilating resulting in hypoperfusion of the lungs due to shallow breaths. He was given 2 mg of Ativan and had resolution of symptoms and pain. He initially required 3 liters of oxygen, but this was titrated down over the course of his stay. Post-cholecystectomy, patient's ANNA began putting out yifan bile. There was concern for bile leak and GI took patient back for ERCP and stent placement. Patient had initially been on IV morphine for pain relief and was able to tolerate p.o. diet, oral pain medication and began passing gas and stools. Microbiology came back of the gallbladder swab positive for E. coli, Klebsiella pneumoniae, bacillus species, and Clostridium perfringens. His clindamycin was discontinued and prior to discharge, he was switched to Cipro and Flagyl. Pt discharged with 7 days of oral antibiotics. Patient did have a lot of anxiety throughout hospitalization. Hydroxyzine was started and this well controlled with symptoms. He was noted to be thrombocytopenic, this was likely dilutional as patient was not on Lovenox for DVT prophylaxis. This will need to be followed up outpatient with labs. His hyperbilirubinemia resolved as did his metabolic acidosis, leukocytosis, and ANIBAL. His chronic medical conditions of hypertension, restless leg syndrome, and BPH were stable with his home medications. His metformin and glyburide were held during his hospitalization. Patient's blood sugars were well controlled, but patient was not tolerating a regular diet, most of the hospitalization. DISPOSITION: Stable. DISCHARGE INSTRUCTIONS: 1. Location: Home. 2. Diet: Carb consistent, Heart healthy. 3. Activity: No restrictions. 4. Follow up with Dr. Odonnell in [address] Greene in 7 days. MOI
== END 2018-01-05 17:30 | disposition home or self-care (01) | DRG 854 ==
LOC: ERS 07:58 → T4-A 11:18 → IMCU/EMU 16:02 → SURG A 01-02 11:32
PROVIDERS: ADMIT Family Medicine; ATTEND Family Medicine
PROC: 0FT44ZZ Resection of Gallbladder, Percutaneous Endoscopic Approach (ICD-10-PCS; principal; 2018-01-01)
PROC: 0F788DZ Dilation of Cystic Duct with Intraluminal Device, Via Natural or Artificial Opening Endoscopic (ICD-10-PCS; 2018-01-04)
DX: A41.9 Sepsis, unspecified organism (principal); K81.0 Acute cholecystitis; N17.9 Acute kidney failure, unspecified; K91.89 Other postprocedural complications and disorders of digestive system; E87.4 Mixed disorder of acid-base balance; K56.7 Ileus, unspecified; E80.6 Other disorders of bilirubin metabolism; N40.0 Benign prostatic hyperplasia without lower urinary tract symptoms; E11.9 Type 2 diabetes mellitus without complications; G25.81 Restless legs syndrome; F41.9 Anxiety disorder, unspecified; D69.6 Thrombocytopenia, unspecified; N32.89 Other specified disorders of bladder; Z87.891 Personal history of nicotine dependence; E66.9 Obesity, unspecified; Z68.29 Body mass index [BMI] 29.0-29.9, adult; F10.21 Alcohol dependence, in remission; K82.A1 Gangrene of gallbladder in cholecystitis; I10 Essential (primary) hypertension
CPT/HCPCS: 36415; 36416; 71045; 71275; 74330; 76705; 80048; 80053; 80074; 80076; 81003; 82010; 82248; 82550; 82553; 82805; 83516; 83605; 83690; 84484; 85025; 86038; 86225; 87040; 87070; 87076; 87077; 87086; 87186; 87205; 87804; 88304; 93005; 93010; 94640; 96361; 96365; 96375; G8978-GP-CJ; G8979-GP-CJ; G8980-GP-CJ; J0360; J1650; J1885; J2060; J2185; J2250; J2270; J2405; J2543; J2704; J3010; J3490; J7050; J7620; Q9961; S0028

== ENCOUNTER 2018-01-09 14:44 | Emergency (ER) | payer SELFPAY ==
[2018-01-09] MEDS ORDERED: Morphine 2 MG/ML SYRINGE ONE ×2 (14:54→15:03)
[2018-01-09] MEDS ORDERED: Ondansetron PF 4 MG/2 ML Vial ONE (14:56)
[2018-01-09 15:24] LABS: #Eosinphils 0.2 thou/uL (0.0-0.7); #Lymphocytes 1.3 thou/uL (1.20-3.40); #Monocytes 0.5 thou/uL (0.11-0.59); #Neutrophils 5.9 thou/uL (1.40-6.50); %Basophils 0.6 % (0.0-1.0); %Eosinophils 2.6 % (0.0-10.0); %Lymphocytes 16.4 % (21.0-51.0); %Monocytes 6.6 % (0.0-10.0); %Neutrophils 73.8 % (42.0-75.0); Mean Corpuscular HGB CONC 32.2 g/dL (32.0-36.0); Mean Corpuscular Hemoglobin 30.5 pg (27.0-31.0); Mean Corpuscular Volume 94.7 fL (78.0-98.0); Mean Platelet Volume 6.7 fL (7.4-10.4); Platelet Count 537 thou/uL (130-400); RBC Distribution Width 12.4 % (11.5-14.5); Red Blood Cell (RBC) Count 4.27 mill/uL (4.70-6.10)
[2018-01-09] MEDS ORDERED: Ketorolac Tromethamine 30 MG/ML VIAL ONE (15:27)
[2018-01-09 15:44] LABS: ALT (SGPT) 18 U/L (8-55); AST (SGOT) 19 U/L (5-34); Albumin 3.6 g/dL (3.5-5.0); Alkaline Phosphatase 55 U/L (40-150); Anion Gap 15 mmol/L (10-20); BUN (Urea Nitrogen) 10 mg/dL (8.4-25.7); Bilirubin, Total 0.4 mg/dL (0.2-1.2); Calc. Creatinine Clearance 0 mL/min (70-130); Carbon Dioxide 20 mmol/L (22-29); Chloride 105 mmol/L (98-107); Estimated GFR-MDRD 73; Globulin 3.6 g/dL (2.4-3.5); Glucose 195 mg/dL (70-105); Lipase 66 U/L (8-78); Potassium 4.6 mmol/L (3.5-5.1); Protein, Total 7.2 g/dL (6.0-8.3); Sodium 135 mmol/L (136-145)
[2018-01-09 16:17] LABS: Lactic Acid 1.4 mmol/L (0.5-2.2)
--- NOTE | 2018-01-09 16:19 | CT ---
CT OF THE ABDOMEN AND PELVIS WITH CONTRAST: 01/09/18 COMPARISON: 12/31/17. HISTORY: Patient had recent cholecystectomy. Patient had a drain removed today and began having abdominal laura n after drain removal. TECHNIQUE: Multiple contiguous axial images were obtained in a CT of the abdomen and pelvis with contrast. Coron al reformats were performed. FINDINGS: The gallbladder has been removed. Stranding changes and a few air bubbles in the right upper quadrant of the abdomen are likely from recent surgery. There is a stent in the common bile duct. There is a tiny well circumscribed hypodense region near the surgical bed. This could represent a remnant of th e gallbladder neck and cystic duct stump or a well circumscribed fluid collection. This measures 2.6 cm in greatest dimension. On the coronal image, this appears to have a tubular structure leading from it towards the common bile duct and this is favored to present a cystic duct remnant or residual gal lbladder. There is a small amount of air within the liver from the patient's biliary stent. No focal liver lesi ons are seen. The kidneys, adrenal glands, spleen, and pancreas are unremarkable. The large and small bowel are unremarkable. No abdominal or pelvic lymphadenopathy are seen. The patient has a trace right pleural effusion with adjacent atelectasis. Degenerative changes are se en in the spine. IMPRESSION: Postsurgical changes from recent cholecystectomy. There is a fluid collection in the gallbladder irma a which may represent a cystic duct remnant or remnant of a small amount of remaining gallbladder. POS: TPC
== END 2018-01-09 17:25 | disposition home or self-care (01) ==
LOC: ERS 14:44
DX: G89.18 Other acute postprocedural pain (principal); R10.11 Right upper quadrant pain; E11.9 Type 2 diabetes mellitus without complications; Z87.891 Personal history of nicotine dependence; Z79.82 Long term (current) use of aspirin; Z79.899 Other long term (current) drug therapy; Z79.84 Long term (current) use of oral hypoglycemic drugs
CPT/HCPCS: 36415; 74177; 80053; 83605; 83690; 85025; 94760; 96374; 96375; J1885; J2270; J2405

== ENCOUNTER 2018-01-19 19:51 | Observation (INO) | payer OTHER, SELFPAY ==
[2018-01-19 20:29] LABS: #Basophils 0.1 thou/uL (0.0-0.2); #Eosinphils 0.1 thou/uL (0.0-0.7); #Lymphocytes 0.7 thou/uL (1.20-3.40); #Monocytes 0.5 thou/uL (0.11-0.59); #Neutrophils 6.6 thou/uL (1.40-6.50); %Basophils 0.6 % (0.0-1.0); %Eosinophils 0.9 % (0.0-10.0); %Lymphocytes 8.6 % (21.0-51.0); %Neutrophils 83.7 % (42.0-75.0); Mean Corpuscular HGB CONC 30.8 g/dL (32.0-36.0); Mean Corpuscular Hemoglobin 29.2 pg (27.0-31.0); Mean Corpuscular Volume 94.8 fL (78.0-98.0); Mean Platelet Volume 7.5 fL (7.4-10.4); Platelet Count 318 thou/uL (130-400); RBC Distribution Width 11.8 % (11.5-14.5); Red Blood Cell (RBC) Count 4.11 mill/uL (4.70-6.10); White Blood Cell (WBC) Count 7.9 thou/uL (4.8-10.8)
[2018-01-19 20:51] LABS: ALT (SGPT) 13 U/L (8-55); AST (SGOT) 14 U/L (5-34); Albumin 3.9 g/dL (3.5-5.0); Alkaline Phosphatase 67 U/L (40-150); Anion Gap 14 mmol/L (10-20); BUN (Urea Nitrogen) 10 mg/dL (8.4-25.7); Bilirubin, Total 0.4 mg/dL (0.2-1.2); Calc. Creatinine Clearance 0 mL/min (70-130); Calcium 9.2 mg/dL (7.8-10.44); Carbon Dioxide 23 mmol/L (22-29); Chloride 100 mmol/L (98-107); Estimated GFR-MDRD 70; Globulin 3.5 g/dL (2.4-3.5); Glucose 252 mg/dL (70-105); Potassium 4.3 mmol/L (3.5-5.1); Protein, Total 7.4 g/dL (6.0-8.3); Sodium 133 mmol/L (136-145)
--- NOTE | 2018-01-19 21:07 | RAD ---
UPRIGHT PORTABLE CHEST ONE VIEW: 01/19/18 HISTORY: 57-year-old male with history of recent cholecystectomy with postop fever. Poor inspiration. Minimal increased markings in the right infrahilar region but stable from 12/31/17. No confluent pneumonia, overt edema or pleural effusion. IMPRESSION: Poor inspiratory effort with stable increased markings in the right infrahilar region. Right hemidiap hragm elevation is stable. POS: ALLEN
[2018-01-19 22:01] LABS: Bilirubin Negative (Negative); Blood, Urine Negative (Negative); Clarity CLEAR (Clear); Glucose, Urine (Dipstick) 500 mg/dL (Negative); Leukocyte Negative (Negative); Nitrite Negative (Negative); Protein, Urine (Dipstick) Negative (Neg-Trace); Specific Gravity, Urine 1.015 (1.002-1.036); Urobilinogen 0.2 mg/dL (0.2-1.0)
--- NOTE | 2018-01-19 22:21 | CT ---
ABDOMEN AND PELVIC CT SCAN WITH IV CONTRAST: 01/19/18 HISTORY: 57-year-old male with history of pain, fever, and recent cholecystectomy. COMPARISON: 01/09/18. There are again noted to be some abnormal fat stranding changes in the region of the post cholecystec brayan operative bed. There are a few punctate areas of persistent gas collection, although these are d efinitely less in number and size than on the prior CT. There is a fluid collection in the operative bed which is slightly larger than on the prior study. On today's exam, it measures 2.9 x 5.8 cm and o n the previous study it measured 2.5 x 4.7 cm. A biliary stent is noted in place extending into the d uodenum. Again noted is a circumscribed fluid filled thin wall structure possibly a small amount of r esidual gallbladder. This is unchanged in appearance from the prior study. Again noted are some renal hypodensities statistically small cysts. There is also small liver cysts. The pancreas, spleen and a drenal glands are unremarkable. No evidence for other abnormal fluid collection within the abdomen or pelvis. IMPRESSION: Some persistent fat stranding changes in the post cholecystectomy operative bed region with a slightl y larger fluid collection now in the operative bed than on the prior study of 01/09/18. No evidence f or other abnormal fluid collection within the abdomen or pelvis. POS: SHANNON
[2018-01-19] MEDS ORDERED: Piperacillin/Tazobactam 3.375 GM VIAL ONE (23:02)
[2018-01-20] MEDS ORDERED: Dextrose 5% in Water 1,000 ML IV PRN (01:05)
[2018-01-20] MEDS ORDERED: Dextrose 50% Abboject 50 ML SYRINGE SLOW IVP PRN (01:05)
[2018-01-20] MEDS ORDERED: Insulin Regular 300 UNITS/3 ML VIAL SC PRN (01:05)
--- NOTE | 2018-01-20 01:19 | PDOC.FPRHP ---
- History of Present Illness Chief Complaint: fever and chills History of Present Illness: 57 yo male presented to ED with fever and chills. He was recently seen at [facility] from 12/31-01/05 for gangrenous gallbladder s/p laproscopic subtotal cholecystectomy. Later in that hospitalization, ANNA drain had yifan bile output so patient had ERCP with stent placement, to have this removed in 6 weeks. Swab from GB showed Ecoli, Klebsiella, bacillis, C. perfringens. He was sent home on cipro and flagyl. On 01/09 he had drain pulled, within 10 minutes he had intense pain abdominal pain across his abdomen and was sent to the ED from Dr. Odonnell's office. CT showed a fluid collection in the GB fossa with cystic duct remnant vs GB remnant. No admission at that time. Today pain in abdomen has resolved, but he reports fever and chills over the past 2-3 days. Temp 101.7 at home. Assoc back pain. Says he felt like he was sick, either an infection or the flu. Today in the ED, CT shows fat stranding with fluid in the operative bed bigger than previosu CT. Dr. Boone was consulted and said he would see the patient tomorrow, but to admit patient. ED Course: NS bolus 1liter x2; zosyn - Allergies/Adverse Reactions Allergies Allergy/AdvReac Type Severity Reaction Status Date / Time codeine AdvReac Mild itches if Verified 12/31/17 12:08 he takes more than 2 - Home Medications Medication Instructions Recorded Confirmed Type Aspirin [Ecotrin Low Strength] 1 tab HS 01/20/18 01/20/18 History Cetirizine HCl [Zyrtec] 1 tab HS 01/20/18 01/20/18 History Doxazosin [Cardura] 1 mg HS 01/20/18 01/20/18 History Lisinopril 10 mg HS 01/20/18 01/20/18 History Omeprazole 10 mg HS 01/20/18 01/20/18 History Tadalafil [Cialis] 5 mg HS 01/20/18 01/20/18 History glipiZIDE [Glipizide] 10 mg PO HS 01/20/18 01/20/18 History metFORMIN [Glucophage] 1 tab HS 11/10/18 11/10/18 History rOPINIRole HCl [Ropinirole HCl] 2 tab HS 01/20/18 01/20/18 History - History PMHx: DMII, HTN, BPH, restless leg PSHx: lap jason 1 month ago; ERCP 1 month ago with stent placement; neck surgery ; left shoulder surgery FHx:father and daughter with gallstones and cholecystectomy Social:Former smoker quit > 20 years ago, former EtOH - Review of Systems General: reports: fever/chills Respiratory: denies: cough, shortness of breath Cardiovascular: denies: chest pain Gastrointestinal: denies: nausea, diarrhea, constipation Genitourinary: denies: dysuria Skin: denies: rashes, itching Musculoskeletal: denies: tenderness, stiffness, swelling Neurological: denies: numbness - Vital signs BP: 128/71 HR: 86 RR: 16 Tmax: 100.2 Pox: 100% on RA Wt: 95kg - Physical Exam Constitutional: NAD, awake, alert and oriented HEENT: normocephalic and atraumatic, EOMI, no scleral icterus Heart: RRR, normal S1/S2, no murmurs/rubs/gallops Lungs: CTAB, no respiratory distress Abdomen: soft, non-tender, bowel sounds present -Abdomen: healing port sites from lap jason Neurological: no focal deficit, CN II-XII intact -Skin: no signs of erythema or infection at port sites on abdomen Heme/Lymphatic: no unusual bruising or bleeding Psychiatric: normal mood and affect, good judgment and insight FMR H&P: Results - Labs Result Diagrams: 01/20/18 04:54 01/20/18 04:54 Lab results: WBC 7.9 thou/uL (4.8-10.8) 01/19/18 20:21 Hgb 12.0 g/dL (14.0-18.0) L 01/19/18 20:21 Hct 38.9 % (42.0-52.0) L 01/19/18 20:21 MCV 94.8 fL (78.0-98.0) 01/19/18 20:21 Plt Count 318 thou/uL (130-400) 01/19/18 20:21 Neutrophils % 83.7 % (42.0-75.0) H 01/19/18 20:21 Sodium 133 mmol/L (136-145) L 01/19/18 20:21 Potassium 4.3 mmol/L (3.5-5.1) 01/19/18 20:21 Chloride 100 mmol/L (98-107) 01/19/18 20:21 Carbon Dioxide 23 mmol/L (22-29) 01/19/18 20:21 BUN 10 mg/dL (8.4-25.7) 01/19/18 20:21 Creatinine 1.08 mg/dL (0.6-1.3) 01/19/18 20:21 Glucose 252 mg/dL (70-105) H 01/19/18 20:21 Lactic Acid 1.5 mmol/L (0.5-2.2) 01/19/18 20:20 Calcium 9.2 mg/dL (7.8-10.44) 01/19/18 20:21 Total Bilirubin 0.4 mg/dL (0.2-1.2) 01/19/18 20:21 AST 14 U/L (5-34) 01/19/18 20:21 ALT 13 U/L (8-55) 01/19/18 20:21 Alkaline Phosphatase 67 U/L (40-150) 01/19/18 20:21 Serum Total Protein 7.4 g/dL (6.0-8.3) 01/19/18 20:21 Albumin 3.9 g/dL (3.5-5.0) 01/19/18 20:21 Urine Ketones Negative mg/dL (Negative) 01/19/18 21:40 Urine Blood Negative (Negative) 01/19/18 21:40 Urine Nitrite Negative (Negative) 01/19/18 21:40 Ur Leukocyte Esterase Negative (Negative) 01/19/18 21:40 - Radiology Interpretation CT scan - abdomen Status: image reviewed by me, report reviewed by me (fat stranding, fluid in operative bed bigger than previous CT) FMR H&P: A/P - Problem List (1) Post-operative infection Current Visit: Yes Status: Suspected Code(s): T81.40XA - INFECTION FOLLOWING A PROCEDURE, UNSPECIFIED, INIT (2) Hypertension Current Visit: Yes Status: Acute Code(s): I10 - ESSENTIAL (PRIMARY) HYPERTENSION (3) DM2 (diabetes mellitus, type 2) Current Visit: No Status: Acute (4) RLS (restless legs syndrome) Current Visit: No Status: Acute - Plan #possible post operative infection -findings on CT somewhat concerning for infection with fluid collection larger that 10 days prior -admit to medical floor and start on zosyn -Dr. Boone was consulted from the ED and plans to evaluate in the morning; recs greatly appreciated -suspicion for infection lowered by normal WBC, lactate -will trend CBC, BMP in AM #DMII -on metformin and glipizide -mild SSI with accuchecks qACHS -optimal range 140-180 #Hypertension -continue to monitor -reports he did not take dose on 01/19 -continue home meds #Restless leg syndrome -continue home roprinirole #hyponatremia -patient s/p 2 liters NS in the ED -will continue with maintenance fluids -recheck BMP in the morning Disposition/LOS: Code status: full Admit to medical obs, possibly less than 2 midnights Diet: CC, NPO after midnight to prepare for any possible operation on 01/20 AM Activity: as tolerated PPX: SCD Attending Addendum - Attending Addendum Date/Time: 01/20/18 1150 I personally evaluated the patient and discussed the management with Dr. Mancia. I agree with and repeated the History, Examination, Assessment and Plan documented above with any addition or exceptions noted below. Pt doing much better this morning. Pain is resolved. No abd pain. No n/v. Exam is unremarkable, he is NTTP with no palp organomegaly. I do not suspect stent dysfunction after reviewing his labs and exam. Appreciate GS recs.
[2018-01-20] MEDS ORDERED: rOPINIRole HCl 0.25 MG TAB PO SCH ×2 (01:30→21:00)
[2018-01-20 01:51] VITALS: BMI 28.4
[2018-01-20] MEDS: Lactated Ringer's 1,000 ML IV SCH ×4 (02:53→20:31)
[2018-01-20] MEDS: Piperacillin/Tazobactam 3.375 GM in Sodium Chloride 0.9% 100 ML IVPB SCH ×4 (05:09→23:11)
[2018-01-20 05:17] LABS: #Eosinphils 0.1 thou/uL (0.0-0.7); #Lymphocytes 1.4 thou/uL (1.20-3.40); #Monocytes 0.5 thou/uL (0.11-0.59); #Neutrophils 3.1 thou/uL (1.40-6.50); %Basophils 0.7 % (0.0-1.0); %Lymphocytes 27.3 % (21.0-51.0); %Monocytes 9.9 % (0.0-10.0); %Neutrophils 60.2 % (42.0-75.0); Hemoglobin 10.6 g/dL (14.0-18.0); Mean Corpuscular HGB CONC 32.8 g/dL (32.0-36.0); Mean Corpuscular Hemoglobin 30.8 pg (27.0-31.0); Mean Corpuscular Volume 93.9 fL (78.0-98.0); Platelet Count 254 thou/uL (130-400); RBC Distribution Width 11.7 % (11.5-14.5); Red Blood Cell (RBC) Count 3.45 mill/uL (4.70-6.10); White Blood Cell (WBC) Count 5.2 thou/uL (4.8-10.8)
[2018-01-20 05:40] LABS: Anion Gap 11 mmol/L (10-20); BUN (Urea Nitrogen) 9 mg/dL (8.4-25.7); Calc. Creatinine Clearance 127 mL/min (70-130); Calcium 8.8 mg/dL (7.8-10.44); Carbon Dioxide 22 mmol/L (22-29); Chloride 108 mmol/L (98-107); Estimated GFR-MDRD Greater than 90; Glucose 167 mg/dL (70-105); Potassium 4.3 mmol/L (3.5-5.1); Sodium 137 mmol/L (136-145)
[2018-01-20 10:23] LABS: INR-International Normal Ratio 1.1; PTT 33.7 SEC (22.9-36.1); Prothrombin Time 14.4 SEC (12.0-14.7)
[2018-01-20] MEDS ORDERED: Midazolam HCl 2 mg/2 ml Vial ONE (10:45)
[2018-01-20] MEDS ORDERED: Fentanyl 100 MCG/2 ML VIAL ONE (10:45)
[2018-01-20] MEDS ORDERED: Sodium Bicarbonate 2.5 MEQ/5 ML VIAL ONE (10:46)
[2018-01-20] MEDS ORDERED: Sodium Chloride 0.9% 10 ML ONE (10:46)
[2018-01-20 12:47] LABS: BF Color Brown; Clarity Cloudy/Turbid (Clear); Tube # EDTA
[2018-01-20 12:48] LABS: BF RBC Count - Manual 18 /cumm; BF WBC/Nonhematics Ct. - Manua 74 /cumm
--- NOTE | 2018-01-20 12:54 | CT ---
CT GUIDED SUBHEPATIC ABSCESS DRAINAGE: Date: 01/20/18 HISTORY: Infected biloma. COMPARISON: CT prior day. FINDINGS: The patient is brought to the CT suite. All questions answered. The patient's right upper quadrant was prepped and draped in the normal sterile fashion. Size of the collection has decreased over the past 14 hours. 50 mcg of Fentanyl and 1 mg Versed was given by the administering nurse. Using CT guidance, the subhepatic abscess was accessed. This was accessed using a 17 gauge introducer . 30 mL of purulent fluid was aspirated. The patient tolerated the procedure well and without complic ation. No residual fluid post aspiration. IMPRESSION: Technically successful CT guided subhepatic abscess aspiration with removal of 30 mL of purulent flui d. POS: [facility]
[2018-01-20] MEDS: HumaLOG 300 UNITS/3 ML VIAL SC PRN ×2 (13:14→20:36)
--- NOTE | 2018-01-20 20:13 | CON ---
DATE OF CONSULTATION: 01/20/2018 REQUESTING PHYSICIAN: Julian Mancia D.O. [facility]. HISTORY OF PRESENT ILLNESS: Cooper Bland is a 57-year-old male with a recent hospitalization for chol ecystitis and gangrenous gallbladder that is now status post laparoscopic subtotal cholecystectomy. Per patient and electronic medical records, the patient's ANNA drain had bilious output and underwent a n ERCP with stent placement. The patient was discharged on 01/05/2018 on oral antibiotics. 01/10/20, his drain was pulled at Dr. Odonnell's office. The patient had significant abdominal pain at that t miguel a and a CT scan was performed in the emergency room which demonstrated a fluid collection in the fo ssa of the gallbladder. The patient's pain did improve. However, over the past 2-3 days, the patient was experiencing increasing fever and chills with a T-max of 101.7 at home. This was associated wit h increasing back pain. He was seen in the emergency room and a CT scan at that time demonstrated in crease in size in the previously seen fluid collection. Patient has been admitted overnight by the [facility] Medicine team and received IV antibiotics. Upon our evaluation this morning, the patient state s he is feeling better. ALLERGIES: CODEINE. HOME MEDICATIONS: Aspirin 81 mg, Zyrtec daily, doxazosin, lisinopril 10 mg at bedtime, omeprazole 10 mg at bedtime, Cialis 5 mg and glipizide 10 mg p.o. at bedtime. MEDICAL HISTORY: Significant for diabetes, BPH, and restless legs syndrome. The patient states anti hypertensives are for renal protection given his diabetic status. PAST SURGICAL HISTORY: Status post laparoscopic subtotal cholecystectomy 12/2017, ERCP 12/2017, neck surgery and left shoulder surgery. FAMILY HISTORY: Reviewed. SOCIAL HISTORY: The patient is a former smoker, last tobacco use greater than 20 years ago and a for gerry alcohol user. REVIEW OF SYSTEMS: A 10-point review of systems is performed and negative except as indicated in HPI . PHYSICAL EXAMINATION: VITAL SIGNS: Temperature 97.7, pulse 56, respiration rate 18, O2 sat 97% on room air, blood pressure 126/71. GENERAL: Well-developed male in no acute distress, resting in bed. HEENT: Head normocephalic, atraumatic. CHEST: Atraumatic. PULMONARY: Normal work of breathing, symmetric rise. CARDIOVASCULAR: Regular rate and rhythm. GASTROINTESTINAL: Abdomen is soft, nontender, and bowel sounds are positive. Surgical sites are shlomo an and dry. NEUROLOGIC: No focal deficit is noted. LABORATORY FINDINGS: WBC 5.2, hemoglobin 10.6, hematocrit 32.4, platelet count 254. INR 1.1. Sodiu m 137, potassium 4.3, chloride 108, carbon dioxide 22, BUN 9, creatinine 0.86, glucose 167. RADIOGRAPHIC FINDINGS: Chest x-ray was negative for acute cardiopulmonary process. CT of the abdome n and pelvis was reviewed by Dr. Boone and read by Radiology as having persistent fat stranding in th e postoperative cholecystectomy region with a slight increase in the fluid collection previously seen measuring 2.9 x 5.8 cm. ASSESSMENT: 1. Status post laparoscopic subtotal cholecystectomy. 2. Intra-abdominal fluid collection. 3. Fever and chills. PLAN: Although patient's white count and lactic acid are within normal limits, fluid collection may represent bio or possible intra-abdominal abscess. We will discuss with Interventional Radiology and plan for CT guided drainage of this fluid collection. Continue IV antibiotics for now. AM labs. M edical management per primary team. Plan for care was discussed with the patient and family at [facility]. All questions were answered at the time of this dictation. The patient has been seen and evalua mary anne with Dr. Boone.
[2018-01-20] MEDS ORDERED: rOPINIRole HCl 2 MG TAB PO SCH (21:00)
[2018-01-20] MEDS ORDERED: glipiZIDE 5 MG TAB PO SCH (21:00)
[2018-01-20] MEDS ORDERED: metFORMIN 500 MG TAB PO SCH (21:00)
[2018-01-20] MEDS ORDERED: Lisinopril 10 MG TAB PO SCH (21:00)
[2018-01-21] MEDS: Piperacillin/Tazobactam 3.375 GM in Sodium Chloride 0.9% 100 ML IVPB SCH ×2 (04:52→11:25)
[2018-01-21] MEDS: Lactated Ringer's 1,000 ML IV SCH (04:53)
[2018-01-21 04:55] LABS: #Eosinphils 0.2 thou/uL (0.0-0.7); #Lymphocytes 1.3 thou/uL (1.20-3.40); #Monocytes 0.3 thou/uL (0.11-0.59); #Neutrophils 1.8 thou/uL (1.40-6.50); %Basophils 0.7 % (0.0-1.0); %Eosinophils 5.5 % (0.0-10.0); %Lymphocytes 35.4 % (21.0-51.0); %Monocytes 7.9 % (0.0-10.0); %Neutrophils 50.5 % (42.0-75.0); Hemoglobin 10.9 g/dL (14.0-18.0); Mean Corpuscular HGB CONC 32.8 g/dL (32.0-36.0); Mean Corpuscular Hemoglobin 30.7 pg (27.0-31.0); Mean Corpuscular Volume 93.8 fL (78.0-98.0); Mean Platelet Volume 8.1 fL (7.4-10.4); Platelet Count 232 thou/uL (130-400); RBC Distribution Width 11.7 % (11.5-14.5); Red Blood Cell (RBC) Count 3.55 mill/uL (4.70-6.10); White Blood Cell (WBC) Count 3.6 thou/uL (4.8-10.8)
[2018-01-21 05:24] LABS: Anion Gap 10 mmol/L (10-20); BUN (Urea Nitrogen) 9 mg/dL (8.4-25.7); Calc. Creatinine Clearance 112 mL/min (70-130); Calcium 9.1 mg/dL (7.8-10.44); Carbon Dioxide 27 mmol/L (22-29); Chloride 105 mmol/L (98-107); Estimated GFR-MDRD 79; Glucose 148 mg/dL (70-105); Sodium 138 mmol/L (136-145)
--- NOTE | 2018-01-21 06:34 | PDOC.FM ---
Addendum entered and electronically signed by Florecita Bullock MD 01/21/18 09:24 : of note, fluid drained from abscess yesterday was cultured and grew gram positive cocci in clusters and chains Will continue current abx and continue to monitor VS, CBC BMP. Original Note: - Subjective Subjective: Patient resting comfortably in bed. Patient denies any pain, fever or chills. No complaints or concerns at this time. - Objective Vital Signs & Weight: Vital Signs (12 hours) Temp Pulse Resp BP BP Pulse Ox 01/21/18 04:00 98.1 F 67 18 113/67 97 01/20/18 23:14 97.8 F 64 18 124/66 97 01/20/18 20:29 97/60 01/20/18 20:00 98.1 F 67 18 97/60 97 Weight Weight 95 kg I&O: 01/19/18 01/20/18 01/21/18 06:59 06:59 06:59 Intake Total 100 4430 Balance 100 4430 Result Diagrams: 01/21/18 04:11 01/21/18 04:11 <Florecita Bullock - Last Filed: 01/21/18 07:47> - Objective Vital Signs & Weight: Vital Signs (12 hours) Temp Pulse Resp BP Pulse Ox 01/21/18 08:00 96 01/21/18 07:57 98.3 F 54 L 18 133/73 96 01/21/18 04:00 98.1 F 67 18 113/67 97 Weight Weight 95 kg I&O: 01/20/18 01/21/18 01/22/18 06:59 06:59 06:59 Intake Total 100 4430 Balance 100 4430 Result Diagrams: 01/21/18 04:11 01/21/18 04:11 <Aldo Delgado - Last Filed: 01/21/18 13:02> Phys Exam - Physical Examination Constitutional: NAD HEENT: PERRLA, moist MMs, sclera anicteric Neck: full ROM Respiratory: clear to auscultation bilateral Cardiovascular: RRR, no significant murmur, no rub Gastrointestinal: soft, non-tender, no distention Musculoskeletal: no edema, pulses present Neurological: non-focal, moves all 4 limbs Psychiatric: normal affect, A&O x 3 Skin: no rash <Florecita Bullock - Last Filed: 01/21/18 07:47> Dx/Plan (1) Hypertension Code(s): I10 - ESSENTIAL (PRIMARY) HYPERTENSION Status: Acute (2) BPH (benign prostatic hyperplasia) Code(s): N40.0 - BENIGN PROSTATIC HYPERPLASIA WITHOUT LOWER URINRY TRACT SYMP Status: Acute (3) DM2 (diabetes mellitus, type 2) Status: Acute (4) RLS (restless legs syndrome) Status: Acute - Plan Plan: Post operative intra-abdominal infection - findings on CT somewhat concerning for infection or abscess with fluid collection larger that 10 days prior - continue zosyn - Dr. Boone consulted: IR performed CT guided drainage of fluid (30mL of purulent fluid drained); continued IV abx. Patient NPO for possible additional procedures today. Will follow up with recommendations. Appreciate recs. - will trend CBC, BMP in AM. WBC 3.6, BMP wnl DMII - on metformin and glipizide - mild SSI with accuchecks qACHS - optimal range 140-180 - patient had elevated sugar of 130 yesterday, patient states he had 2 meals within one hour. Patient states he used to take metformin BId but he had diarrhea. Patient would like to stick to his current medication regimen at this time. Hypertension - continue to monitor - reports he did not take dose on 01/19 - continue home meds Restless leg syndrome - continue home roprinirole Hyponatremia, resolved - patient s/p 2 liters NS in the ED - will continue with maintenance fluids - recheck BMP in the morning Disposition/LOS: Code status: full Admit to medical obs, possibly less than 2 midnights Diet: NPO Activity: as tolerated PPX: SCD <Florecita Bullock - Last Filed: 01/21/18 07:47> (1) Post-operative infection Code(s): T81.40XA - INFECTION FOLLOWING A PROCEDURE, UNSPECIFIED, INIT Status : Suspected (2) Hypertension Code(s): I10 - ESSENTIAL (PRIMARY) HYPERTENSION Status: Acute (3) DM2 (diabetes mellitus, type 2) Status: Acute (4) RLS (restless legs syndrome) Status: Acute <Aldo Delgado - Last Filed: 01/21/18 13:02> Attending Addendum - Attending Addendum Date/Time: 01/21/18 [id number] I personally evaluated the patient and discussed the management with team. I agree with and repeated the History, Examination, Assessment and Plan documented above with any addition or exceptions noted below. No n/v/abd pain. Transition to PO and likely can be d/c'd per surgery <Aldo Delgado - Last Filed: 01/21/18 13:02>
--- NOTE | 2018-01-21 13:12 | PRG-2 ---
DATE OF SERVICE: 01/21/2018 SUBJECTIVE: Cooper Bland is a 57-year-old male status post a recent hospitalization for cholecystitis and subtotal cholecystectomy. The patient re-presented with a chief complaint of fever and chills. He was evaluated and found to have an intra-abdominal abscess. This was drained yesterday with IR. This morning, microbiology is significant for gram negative rods from the aspirate. He is toleratin g a general diet and pain is well controlled. OBJECTIVE: VITAL SIGNS: The patient has been afebrile, temperature 98.3, pulse 54, respirations 18, O2 sat 96% on room air, blood pressure 132/73. GENERAL: Well-developed male in no acute distress, resting in bed. PULMONARY: Normal work of breathing. Symmetric rise. CARDIOVASCULAR: Regular rate and rhythm. GASTROINTESTINAL: Abdomen is soft, nontender, nondistended. MUSCULOSKELETAL: Moves all extremities x4. NEUROLOGIC: No focal deficit is noted. LABORATORY DATA: WBC 3.6, hemoglobin 10.9, hematocrit 32.3, platelet count 232. Sodium 138, potassi um 4.0, chloride 105, carbon dioxide 27, BUN 9, creatinine 0.98, glucose 148. ASSESSMENT: 1. Cholecystitis status post subtotal laparoscopic cholecystectomy. 2. Intra-abdominal abscess secondary to above. PLAN: Transitioned to p.o. antibiotics. As the patient has been afebrile for greater than 24 hours and tolerating a general diet, he is stable for discharge with close followup from a surgical standpo int. Recommend Cipro 500 mg b.i.d. and Flagyl 500 mg t.i.d. for a total of 10 days. The patient carlos uld follow up with Dr. Odonnell in approximately [address] Boone spent an extensive amount of time di scussing plan of care with the patient. Recommendations were communicated with the primary team. Juno randhawa questions were answered at the time of this dictation. The patient was seen and evaluated with Dr. Boone.
[2018-01-21 13:31] VITALS: BP 151/76; TEMP 98.2
[2018-01-21] MEDS ORDERED: metroNIDAZOLE 500 MG TAB PO SCH (15:00)
[2018-01-21] MEDS ORDERED: Ciprofloxacin 500 MG TAB PO SCH (20:00)
--- NOTE | 2018-01-22 10:51 | DIS-2 ---
DATE OF ADMISSION: 01/19/2018 DATE OF DISCHARGE: 01/21/2018 RESIDENT: Florecita Bullock MD ADMITTING ATTENDING: Aldo Delgado MD DISCHARGE ATTENDING: Aldo Delgado MD CONSULTATIONS: General Surgery and walking program. PROCEDURES: Abscess drainage on 01/20/2018. PRIMARY DIAGNOSIS: 1. Cipro 500mg BID X 10 days 2. Flagyl 500mg TID X 10 days 3. Ropinirole 2 tab at bedtime 4. Metformin 1 tab at bedtime 5. Glipizide 10mg oral at bedtime 6. Tadalafil 5 mg at bedtime 7. Lisinopril 10mg bedtime 8. Doxazosin 1 mg bedtime 9. Zyrtec 1 tab bedtime 10. Aspirin 1 tab bedtime 11. Omeprazole 10 mg bedtime SECONDARY DIAGNOSES: Diabetes type 2, hypertension, BPH, restless leg syndrome. DISCHARGE MEDICATIONS: Please see discharge packet for discharge medications. DISCONTINUED MEDICATIONS: None. HISTORY OF PRESENT ILLNESS/HOSPITAL COURSE: This is a 57-year-old male who presented to the emergency department with fever and chills. Patient was recently seen at [facility] from 12/31 to 01/05 for laparoscopic subtotal cholecystectomy. Later in the hospitalization, ANNA drain had yifan bile output. The patient had ERCP with stent placement and to have this removed in 6 weeks. Follow up on gallbladder showed E. coli and Klebsiella followed with bacillis, C. perfingens. Patient was sent home on Cipro and Flagyl. On 2017, patient had a ANNA drain pulled, within 10 minutes, he had intense pain across his abdomen and was sent to ED from Dr. Odonnell's office. CT showed a fluid collection in the gallbladder fossa with cystic duct remnant versus gallbladder remnant. No admission was done at that time. On the day of admission on 01/19/2018, patient's pain in the abdomen had resolved, but reported fever and chills over the past 2-3 days. T-max at home of 101.7. Patient also endorsed back pain. CT abdomen in ED showed fat stranding with fluid from the operative bed bigger than the previous CT. Dr. Boone of General Surgery was consulted and saw the patient. Dr. Boone contacted interventional radiology who preformed CT guided drainage of fluid collection. The fluid collection was cultured from abdominal abscess and grew gram negative rods. Patient was started on Zosyn on admission and will be sent home on a 10-day regimen of Cipro and Flagyl per General Surgery recommendations. The patient will have follow up with Dr. Odonnell. The patient remained afebrile throughout his hospital stay and was not complaining of abdominal pain. DISPOSITION: Stable. DISCHARGE INSTRUCTIONS: 1. Location: Home. 2. Diet: Diabetic, consistent carbohydrates. 3. Activity: Ad mehrdad. 4. Followup with Dr. Odonnell within 1 week. Follow up with PCP within 2 weeks. MOI
== END 2018-01-21 14:13 | disposition home or self-care (01) ==
LOC: ERS 19:51 → T4-A 23:05
PROVIDERS: ADMIT Emergency Medicine; ATTEND Emergency Medicine
PROC: 0W9G3ZZ Drainage of Peritoneal Cavity, Percutaneous Approach (ICD-10-PCS; principal; 2018-01-20)
DX: T81.43XA Infection following a procedure, organ and space surgical site, initial encounter (principal); K65.1 Peritoneal abscess; B96.1 Klebsiella pneumoniae [K. pneumoniae] as the cause of diseases classified elsewhere; B95.4 Other streptococcus as the cause of diseases classified elsewhere; B95.7 Other staphylococcus as the cause of diseases classified elsewhere; E11.9 Type 2 diabetes mellitus without complications; I10 Essential (primary) hypertension; N40.0 Benign prostatic hyperplasia without lower urinary tract symptoms; G25.81 Restless legs syndrome; E87.1 Hypo-osmolality and hyponatremia; Z87.891 Personal history of nicotine dependence; Z79.82 Long term (current) use of aspirin; Z79.84 Long term (current) use of oral hypoglycemic drugs; Z79.899 Other long term (current) drug therapy; Z88.5 Allergy status to narcotic agent; Z90.49 Acquired absence of other specified parts of digestive tract
CPT/HCPCS: 36415; 36416; 71045; 74177; 77002; 77012; 80048; 80053; 81003; 83605; 85025; 85060; 85610; 85730; 87040; 87070; 87077; 87086; 87149; 87186; 87205; 89051; 96361; 96365; 96366; G0378; J2250; J2543; J3010; J7050; J7120

== ENCOUNTER 2019-08-12 | Outpatient (CLI) | payer BC | END 2019-08-12 08:17 | disposition home or self-care (01) | DX: M54.5 Low back pain (principal); M54.2 Cervicalgia; M47.812 Spondylosis without myelopathy or radiculopathy, cervical region; M47.816 Spondylosis without myelopathy or radiculopathy, lumbar region; M43.16 Spondylolisthesis, lumbar region; M51.36 Other intervertebral disc degeneration, lumbar region; M51.27 Other intervertebral disc displacement, lumbosacral region; M51.37 Other intervertebral disc degeneration, lumbosacral region; M47.817 Spondylosis without myelopathy or radiculopathy, lumbosacral region; Q05.7 Lumbar spina bifida without hydrocephalus; Z98.890 Other specified postprocedural states ==

== ENCOUNTER 2019-09-30 07:29 | Outpatient (CLI) | payer BC, OTHER ==
[2019-09-30 14:05] LABS: Hemoglobin 12.9 g/dL (14.0-18.0); Mean Corpuscular Hemoglobin 31.9 pg (27.0-31.0); Mean Corpuscular Volume 93.9 fL (78.0-98.0); Mean Platelet Volume 9.1 fL (7.4-10.4); Platelet Count 131 thou/uL (130-400); RBC Distribution Width 11.1 % (11.5-14.5); Red Blood Cell (RBC) Count 4.04 mill/uL (4.70-6.10); White Blood Cell (WBC) Count 3.1 thou/uL (4.8-10.8)
[2019-09-30 14:30] LABS: Anion Gap 13 mmol/L (10-20); BUN (Urea Nitrogen) 20 mg/dL (8.4-25.7); Calc. Creatinine Clearance 0 mL/min (70-130); Calcium 8.8 mg/dL (7.8-10.44); Carbon Dioxide 21 mmol/L (22-29); Chloride 105 mmol/L (98-107); Estimated GFR-MDRD 64; Glucose 143 mg/dL (70-105); Potassium 4.4 mmol/L (3.5-5.1); Sodium 135 mmol/L (136-145)
[2019-09-30 14:32] LABS: PTT 27.5 sec (22.9-36.1); Prothrombin Time 13.2 sec (12.0-14.7)
[2019-10-01 12:21] LABS: SARS-CoV-2 MS2 Positive; SARS-CoV-2 N Gene Positive; SARS-CoV-2 S Gene Positive; SARS-CoV-2 orf1ab Positive
== END 2019-09-30 07:30 | disposition home or self-care (01) ==
LOC: LABBT 07:29
PROVIDERS: ATTEND Surgery
DX: Z01.818 Encounter for other preprocedural examination (principal); Z11.59 Encounter for screening for other viral diseases; M48.061 Spinal stenosis, lumbar region without neurogenic claudication; M54.16 Radiculopathy, lumbar region
CPT/HCPCS: 80048; 85027; 85610; 85730; 87635; 93005; 93010; U0003

== ENCOUNTER 2019-11-01 07:23 | Outpatient (CLI) | payer BC, OTHER ==
[2019-11-01 16:26] LABS: Hemoglobin 13.8 g/dL (14.0-18.0); Mean Corpuscular HGB CONC 33.6 g/dL (32.0-36.0); Mean Corpuscular Volume 95.1 fL (78.0-98.0); Mean Platelet Volume 9.2 fL (7.4-10.4); Platelet Count 151 thou/uL (130-400); RBC Distribution Width 11.7 % (11.5-14.5); Red Blood Cell (RBC) Count 4.32 mill/uL (4.70-6.10)
[2019-11-01 16:30] LABS: PTT 27.9 sec (22.9-36.1)
--- NOTE | 2019-11-01 16:51 | EKG ---
Test Reason : SURGERY Blood Pressure : / mmHG Vent. Rate : 062 BPM Atrial Rate : 062 BPM P-R Int : 206 ms QRS Dur : 094 ms QT Int : 390 ms P-R-T Axes : 020 -29 013 degrees QTc Int : 395 ms Normal sinus rhythm Normal ECG No previous ECGs available Confirmed by DR. Edwin WHITAKER ([id number]) on 11/01/2019 4:51:37 PM Referred By: SVEN Confirmed By:DR. Edwin WHITAKER
[2019-11-01 17:34] LABS: Anion Gap 16 mmol/L (10-20); BUN (Urea Nitrogen) 14 mg/dL (8.4-25.7); Calc. Creatinine Clearance 0 mL/min (70-130); Carbon Dioxide 19 mmol/L (22-29); Chloride 106 mmol/L (98-107); Estimated GFR-MDRD 73; Glucose 177 mg/dL (70-105); Potassium 4.3 mmol/L (3.5-5.1); Sodium 137 mmol/L (136-145)
[2019-11-02 14:04] LABS: SARS-CoV-2 MS2 Positive; SARS-CoV-2 N Gene Negative; SARS-CoV-2 S Gene Negative; SARS-CoV-2 by NAA Not Detected (NotDetected); SARS-CoV-2 orf1ab Negative
== END 2019-11-01 07:24 | disposition home or self-care (01) ==
LOC: LABBT 07:23
PROVIDERS: ATTEND Surgery
DX: Z01.818 Encounter for other preprocedural examination (principal); Z20.828 Contact with and (suspected) exposure to other viral communicable diseases; M48.02 Spinal stenosis, cervical region; M50.10 Cervical disc disorder with radiculopathy, unspecified cervical region
CPT/HCPCS: 80048; 85027; 85610; 85730; 87635; 93005; 93010; U0003

== ENCOUNTER 2019-11-05 06:04 | Inpatient (IN) | payer BC ==
[2019-11-05] MEDS ORDERED: Thrombin 5000 UNITS/5 ML VIAL ONE (06:31)
[2019-11-05] MEDS ORDERED: Fentanyl 250 MCG/5 ML VIAL ONE (07:11)
[2019-11-05] MEDS ORDERED: Midazolam HCl 2 mg/2 ml Vial ONE (07:21)
[2019-11-05] MEDS ORDERED: Promethazine HCl 25 MG/ML VIAL IM PRN (09:22)
[2019-11-05] MEDS ORDERED: Ondansetron HCl/PF 4 MG/2 ML Vial IVP PRN (09:22)
[2019-11-05] MEDS ORDERED: PACU-Morphine 4MG/ML VIAL SLOW IVP PRN (09:22)
[2019-11-05] MEDS ORDERED: HYDROmorphone 2 MG/ML VIAL SLOW IVP PRN (09:22)
[2019-11-05] MEDS ORDERED: Promethazine HCl 25 MG/ML VIAL SLOW IVP PRN (09:22)
[2019-11-05] MEDS ORDERED: Morphine Sulfate 2 MG/ML SYRINGE SLOW IVP PRN (09:22)
[2019-11-05] MEDS ORDERED: Milk Of Magnesia 30 ML UDCUP PO PRN (09:50)
[2019-11-05] MEDS ORDERED: Acetaminophen 325 MG TAB PO PRN (09:50)
[2019-11-05] MEDS ORDERED: diphenhydrAMINE 25 MG CAP PO PRN (09:50)
[2019-11-05] MEDS ORDERED: Bisacodyl 10 MG SUPP PR PRN (09:50)
[2019-11-05] MEDS ORDERED: traMADol HCl 50 MG TAB PO PRN (09:50)
[2019-11-05] MEDS ORDERED: Docusate 100 MG CAP PO PRN (09:51)
[2019-11-05] MEDS ORDERED: Fentanyl 100 MCG/2 ML VIAL ONE ×2 (10:11→10:49)
--- NOTE | 2019-11-05 10:12 | OP ---
DATE OF PROCEDURE: 11/05/2019 LOCATION: OR-12. CERTIFIED RESPIRATORY THERAPIST: Keisha Gisbon PA-C PREPROCEDURE DIAGNOSIS: Lumbar stenosis with low back and leg pain consistent with lumbar radiculopathy. POSTPROCEDURE DIAGNOSIS: Lumbar stenosis with low back and leg pain consistent with lumbar radiculopathy. PROCEDURE PERFORMED: L4-L5 laminectomy, partial facetectomy, foraminotomy. DESCRIPTION OF PROCEDURE: After informed consent was obtained from the patient, the patient was brought to the OR. Proper patient, pause, and identification were carried out. He was placed under excellent general endotracheal anesthesia and positioned prone on the OR table. All appropriate points were padded. We identified the L4-L5 dorsal spine. Linear chan was made over this region. This area was sterilely cleansed, prepared, and draped. Proper patient, pause, and identification were carried out. The wound was then opened with a combination of sharp, monopolar, and blunt dissection. The L4-L5 dorsal spines and lamina were exposed. Localization film confirmed our area of interest. We then performed L4-L5 laminectomy, partial facetectomy, and foraminotomy. In freeing up the right L5 nerve root, the dura was quite thin and a small amount of spinal fluid leaked. This was packed with Gelfoam and no further leakage identified throughout his dural tube. Though, his dura was quite transparent. We were able to achieve however excellent freedom of the L4-L5 central canal and the L5 lateral recesses bilaterally. Copious irrigation occurred throughout as did maximizing hemostasis. The wound was then closed in anatomic layers following sprinkling of vancomycin powder and placement of DuraSeal over the dural tube. Job ID: [id number]
[2019-11-05] MEDS ORDERED: Metoclopramide HCl 10 MG/2 ML VIAL ONE (10:49)
[2019-11-05] MEDS ORDERED: EPHEDRINE 25 MG/5 ML SYRINGE ONE (10:49)
[2019-11-05] MEDS ORDERED: Lidocaine 1% PF 5 ML VIAL ONE (10:49)
[2019-11-05] MEDS ORDERED: Ketorolac Tromethamine 30 MG/ML VIAL ONE (10:49)
[2019-11-05] MEDS ORDERED: Ondansetron PF 4 MG/2 ML Vial ONE (10:49)
[2019-11-05] MEDS ORDERED: Rocuronium Bromide 10 MG/ML (10ML VIAL) ONE (10:49)
[2019-11-05] MEDS ORDERED: PROPOFOL 200 MG/20 ML VIAL ONE (10:49)
[2019-11-05] MEDS ORDERED: Dexamethasone 20 MG/5 ML VIAL ONE (10:49)
[2019-11-05] MEDS ORDERED: Glycopyrrolate 0.2 MG/ML 5 ML SYRINGE ONE (10:49)
[2019-11-05] MEDS ORDERED: PHENYLEPHRINE-NS 100 MCG/ML 10 ML SYRINGE ONE (10:49)
[2019-11-05 13:23] VITALS: BMI 30.7
[2019-11-05] MEDS: Sodium Chloride 0.9% 1,000 ML IV SCH ×2 (13:40→23:43)
[2019-11-05] MEDS: Cephalexin 250 MG CAP PO SCH ×2 (15:18→18:56)
[2019-11-05] MEDS: CEFAZOLIN 2 GM in Premix Bag 1 BAG IVPB SCH ×2 (15:37→23:55)
[2019-11-05] MEDS: HYDROcodone/Acetaminophen 7.5/325 mg Tablet PO PRN ×2 (18:11→23:55)
[2019-11-05] MEDS: Doxazosin Mesylate 1 MG TAB PO SCH (20:25)
[2019-11-05] MEDS: rOPINIRole HCl 0.25 MG TAB PO SCH (20:25)
[2019-11-05] MEDS: Lisinopril 10 MG TAB PO SCH (20:26)
[2019-11-05] MEDS: glipiZIDE 10 MG TAB PO SCH (20:26)
[2019-11-05] MEDS: metFORMIN 500 MG TAB PO SCH (20:26)
[2019-11-05] MEDS: tiZANidine HCl 4 MG TAB PO PRN (23:56)
[2019-11-06] MEDS: Morphine 2 MG/ML VIAL SLOW IVP PRN ×2 (01:55→16:55)
[2019-11-06] MEDS: Ondansetron PF 4 MG/2 ML Vial IVP PRN ×2 (01:57→16:55)
--- NOTE | 2019-11-06 07:14 | ULT ---
DOPPLER VENOUS ULTRASOUND OF BOTH LOWER EXTREMITIES: Date: 11/06/2019 INDICATION: Bilateral lower extremity edema; history of back surgery yesterday with history of right lower extrem ity deep venous thrombosis many years ago. COMPARISON: Prior deep venous thrombosis ultrasound dated 11/21/2014. TECHNIQUE: Ball scale, color Doppler, and vascular duplex with spectral analysis was performed of the deep venou s structures of the bilateral lower extremities. The common femoral vein, superficial femoral vein, p roximal greater saphenous vein, proximal greater profunda vein, popliteal, and posterior tibial veins were assessed. FINDINGS: There is an eccentric, partially occlusive thrombus seen within the distal right superficial femoral vein. There is also partially occlusive thrombus seen within the posterior tibial vein of the right l ower extremity (mid foreleg). There is normal compression, flow, and augmentation was seen within the remaining venous segments of the right lower extremity. There is normal compression and flow within the deep venous structures of the left lower extremity. IMPRESSION: 1. Findings of partially occlusive thrombus within the distal right superficial femoral vein and rig ht posterior tibial vein of the mid foreleg. 2. No evidence of deep venous thrombosis within the left lower extremity. The findings were reported to Edie, the nurse caring for this patient, at 0631 hours on 11/06/2019 by the pulmonology technician. CODE CR. POS: [facility]
[2019-11-06] MEDS: Cephalexin 250 MG CAP PO SCH (07:55)
[2019-11-06] MEDS: HYDROcodone/Acetaminophen 7.5/325 mg Tablet PO PRN ×2 (08:36→20:15)
[2019-11-06] MEDS: Enoxaparin Sodium 40 MG/0.4 ML SYRINGE SC SCH (08:37)
[2019-11-06] MEDS ORDERED: Ketorolac Tromethamine 30 MG/ML VIAL IVP PRN (08:44)
[2019-11-06] MEDS ORDERED: Ketorolac Tromethamine 30 MG/ML VIAL IVP SCH (08:45)
[2019-11-06] MEDS ORDERED: ALPRAZolam 0.5 MG TAB PO PRN (08:45)
[2019-11-06] MEDS ORDERED: Iopamidol 370 76% 50 ML VIAL FS ONE (09:07)
--- NOTE | 2019-11-06 09:52 | PRG ---
DATE OF SERVICE: 11/06/2019 Mr. Bland is postoperative day #1 following lumbar laminectomy. He was up quite a bit yesterday going to the restroom and did have headache. He is currently recumbent and does not have headache. He has no leg pain. Unfortunately, surveillance ultrasound this morning demonstrated right lower extremity DVT. He has a history of DVT as well. He was only on baby aspirin prior to surgery even up until the day of surgery. He has a family history of thrombophilia and his brother postoperatively from a pulmonary embolism. I have placed a consultation with my colleagues in Cardiovascular Surgery for placement of a temporary IVC filter. We have initiated low-dose Lovenox and we will obtain a CTA of the chest today just to make sure that we do not have to be more aggressive given this new DVT, which only formed during the 1-hour surgery. We will see how he is doing today and I expect we could fully anticoagulate him in 3 to 4 weeks and he also needs neck surgery and I would like to get that done before 3 months. Job ID: [id number]
[2019-11-06] MEDS: Sodium Chloride 0.9% 1,000 ML IV SCH (11:25)
[2019-11-06] MEDS ORDERED: Iopamidol 370 76% 100 ML VIAL ONE (14:07)
[2019-11-06] MEDS ORDERED: Ondansetron PF 4 MG/2 ML Vial ONE (16:49)
[2019-11-06] MEDS ORDERED: Morphine 2 MG/ML VIAL ONE (16:49)
--- NOTE | 2019-11-06 18:33 | CON ---
DATE OF CONSULTATION: 11/06/2019 REQUESTING PHYSICIAN: Dr. Travis. CHIEF COMPLAINT: Asymptomatic right lower extremity DVT. HISTORY OF PRESENT ILLNESS: The patient is a 59-year-old man, who several years ago had a right lower extremity DVT and he has a family history of his brother having of a pulmonary embolism following a surgical procedure. Yesterday, Mr. Bland underwent a lumbar laminectomy and screening venous Dopplers today showed a DVT developing in the superficial femoral and posterior tibial veins of the right leg. The patient denies any calf or thigh pain. Denies any chest pain or shortness of breath. He denies any hemoptysis. PAST MEDICAL HISTORY: Significant for diabetes and hypertension. HOME MEDICATIONS: 1. Lisinopril. 2. Glipizide. 3. Metformin. 4. Cardura. 5. Zyrtec. 6. . 7. Naproxen. ALLERGIES: HE DENIES ANY MEDICAL ALLERGIES. FAMILY HISTORY: Significant for his brother who of a pulmonary embolism. REVIEW OF SYSTEMS: Negative for any shortness of breath, chest pain, hemoptysis, or leg pain. PHYSICAL EXAMINATION: VITAL SIGNS: He is 6 feet tall, weighs 226.5 pounds. Temperature is 98.5, heart rate 68, blood pressure 92/51. EXTREMITIES: He has no leg or calf tenderness. IMAGING STUDIES: He has an old CT scan of the abdomen, which shows that his renal veins become confluent with the vena cava at about the upper portion of L1. IMPRESSION AND RECOMMENDATIONS: Recurrent deep venous thrombosis with contraindication to anticoagulation. I will plan on a retrievable IVC filter placement, although the patient is also in need of a cervical procedure in the relative near future, which may make this a moot point. Job ID: [id number]
--- NOTE | 2019-11-06 18:50 | OP ---
DATE OF PROCEDURE: 11/06/2019 PROCEDURES PERFORMED: Inferior vena cavography, Cordis OptEase inferior vena cava filter placement. PREOPERATIVE DIAGNOSIS: Recurrent deep venous thrombosis with contraindication for anticoagulation. POSTOPERATIVE DIAGNOSIS: Recurrent deep venous thrombosis with contraindication for anticoagulation. ANESTHESIA: 1% lidocaine local anesthesia. INDICATIONS: The patient is a 59-year-old man, who underwent a lumbar laminectomy yesterday. Screening venous Dopplers today show thrombus in his right superficial femoral and posterior tibial veins. The patient has a past history of a DVT in that leg, and it is anticipated that he is also to undergo a cervical procedure in the next few months. FINDINGS: The left renal vein was at the level of top of L1. The right renal vein was at the bottom of L1. The superior tip of the filter was placed at the top of L2. Contrast used was 10 mL. Fluoro time was 4.5 minutes. DESCRIPTION OF PROCEDURE: After informed consent was obtained, the patient was taken to the laborer wrecking and salvaging and positioned on the cardiac catheterization table in the supine position. His groins were prepped and draped in sterile fashion. His right femoral pulse was palpated and then interrogated with ultrasonography. The common femoral artery and vein were identified. The skin and subcutaneous tissues overlying the femoral vein were infiltrated with 1% lidocaine. Under ultrasonographic guidance, the femoral vein was then cannulated with a large-bore needle and a guidewire was placed, the needle was removed. Intravenous position was confirmed by fluoroscopy. A small skin yari was made and then a dilator and introducer sheath were placed over the wire. The dilator sheath was placed with its tip at about the bottom of L1 and 10 mL of dilute contrast was injected. This faintly showed the confluence of the left renal vein with the vena cava. The confluence of the right renal vein was even more indistinct. The fenestrated dilator was removed and an angled catheter was placed over the wire. The left renal vein could be intubated with the wire without too much difficulty, confirming that it came off at about the level of the top of L1. Several attempts were made at intubating the right renal vein with the wire without success. The wire was removed and an additional 10 mL of dilute contrast was injected, which showed good opacification of the right renal vein coming off at the bottom of L1. The angled catheter and wire were removed, and a Cordis OptEase vena cava filter was advanced through the introducer sheath. The tip of which had been positioned at the top of L2. When the leading edge of the filter reached the end of the introducer sheath, the introducer sheath was withdrawn, deploying the filter. The sheath was removed, and hemostasis achieved with direct pressure. Job ID: [id number]
[2019-11-06] MEDS: Lisinopril 10 MG TAB PO SCH (20:15)
[2019-11-06] MEDS: glipiZIDE 10 MG TAB PO SCH (20:15)
[2019-11-06] MEDS: metFORMIN 500 MG TAB PO SCH (20:17)
[2019-11-06] MEDS: Doxazosin Mesylate 1 MG TAB PO SCH (21:49)
[2019-11-06] MEDS: rOPINIRole HCl 0.25 MG TAB PO SCH (21:49)
[2019-11-07] MEDS: Acetaminophen/Codeine 30-300mg Tablet PO PRN ×2 (01:00→05:35)
[2019-11-07] MEDS: HYDROcodone/Acetaminophen 7.5/325 mg Tablet PO PRN ×2 (03:36→10:21)
[2019-11-07] MEDS: Sodium Chloride 0.9% 1,000 ML IV SCH (05:30)
[2019-11-07] MEDS: Enoxaparin Sodium 40 MG/0.4 ML SYRINGE SC SCH (08:19)
[2019-11-07 08:59] VITALS: BP 131/79; TEMP 98.8
--- NOTE | 2019-11-07 09:29 | CT ---
CTA CHEST: Axial tomograms were obtained with multiplanar reconstructions and 3D post processing. INDICATION: Shortness of breath. Assess for pulmonary embolus. FINDINGS: Pulmonary arteries show adequate enhancement. No evidence of pulmonary embolus identified. Thoracic aorta is unremarkable. The lung castañeda are clear. Images through the upper abdomen unremarkable. IMPRESSION: No evidence of pulmonary embolus. POS: AGW
[2019-11-07] MEDS: tiZANidine HCl 4 MG TAB PO PRN (10:22)
--- NOTE | 2019-11-07 11:59 | PQF ---
CLINICAL DOCUMENTATION CLARIFICATION FORM: Dear Dr. Xochitl MACHUCA Date: 11/07/2019 5151 Please exercise your independent, professional judgment in responding to the clarification form. Clinical indicators are provided on the bottom of this form for your review. Please check appropriate box(es): [ ] Right lower extremity DVT is a complication of current/recent surgery [ ] Right lower extremity DVT is not a complication of current/recent surgery [ ] Other diagnosis [ ] Unable to determine In addition, please specify: Present on Admission (POA): [ ] Yes [ ] No [ ] Unable to determine For continuity of documentation, please document condition throughout progress notes and discharge summary. Thank You. To be completed by CDI/Coding staff for physician review: CLINICAL INDICATORS - SIGNS / SYMPTOMS / LABS / RESULTS AND LOCATION IN MR 11/05 PN ([facility]) MR. WHITE IS POSTOPERATIVE DAY #1 FOLLOWING LUMBAR LAMINECTOMY. UNFORTUNATELY, SURVEILLANCE ULTRASOUND THIS MORNING DEMONSTRATED RIGHT LOWER EXTREMITY DVT. HE HAS A HISTORY OF DVT WELL. HE WAS ONLY ON BABY ASPIRIN PRIOR TO SURGERY EVEN UP UNTIL THE DAY OF SURGERY. HE HAS A FAMILY HISTORY OF THROMBOPHILIA AND HIS BROTHER POSTOPERATIVELY FROM A PULMONARY EMBOLISM. 11/05 CONSULT ([facility]) IMPRESSION AND PLAN: RECURRENT DEEP VENOUS THROMBOSIS WITH CONTRAINDICATION TO ANTICOAGULATION. PLAN FOR IVC FILTER RISK FACTORS / RESULTS AND LOCATION IN MR RECENT SX / L4-L5 LAMINECTOMY, PARTIAL FACETECTOMY, FORAMINOTOMY HX OF DVT ( OP-NOTE/PN-SVEN) 11/04, 11/05 TREATMENT / RESULTS AND LOCATION IN MR CTA CHEST 11/05 CARDIOVASCULAR SURGERY CONSULT ([facility]/ 11/05) INFERIOR VENA CAVA FILTER PLACEMENT 11/05 THANK YOU! CDS Signature: ANGEL TENORIO RN Phone #: [phone] Date: This is a permanent part of the Medical Record [facility]
== END 2019-11-07 10:45 | disposition home or self-care (01) | DRG 516 ==
LOC: SDC 06:04 → ONC 09:50 → OBSVTOIN 09:50
PROVIDERS: ADMIT Surgery; ATTEND Surgery
PROC: 01NB0ZZ Release Lumbar Nerve, Open Approach (ICD-10-PCS; principal; 2019-11-05)
PROC: 06H03DZ Insertion of Intraluminal Device into Inferior Vena Cava, Percutaneous Approach (ICD-10-PCS; 2019-11-06)
PROC: B5191ZZ Fluoroscopy of Inferior Vena Cava using Low Osmolar Contrast (ICD-10-PCS; 2019-11-06)
DX: M48.062 Spinal stenosis, lumbar region with neurogenic claudication (principal); I82.411 Acute embolism and thrombosis of right femoral vein; I82.441 Acute embolism and thrombosis of right tibial vein; M54.16 Radiculopathy, lumbar region; I10 Essential (primary) hypertension; E11.9 Type 2 diabetes mellitus without complications; Z88.5 Allergy status to narcotic agent
CPT/HCPCS: 37191; 71275; 76000; 76942; 93970; 96365; 96372; 96375; 96376; G0378; J0690; J1100; J1644; J1650; J1885; J2250; J2270; J2405; J2704; J2765; J3010; J3370; Q9967

== ENCOUNTER 2019-12-26 07:53 | Outpatient (CLI) | payer BC, OTHER ==
[2019-12-26 11:56] LABS: Hemoglobin 13.8 g/dL (14.0-18.0); Mean Corpuscular Hemoglobin 31.9 pg (27.0-31.0); Mean Corpuscular Volume 93.7 fL (78.0-98.0); Mean Platelet Volume 9.1 fL (7.4-10.4); Platelet Count 146 thou/uL (130-400); RBC Distribution Width 11.8 % (11.5-14.5); Red Blood Cell (RBC) Count 4.33 mill/uL (4.70-6.10); White Blood Cell (WBC) Count 4.6 thou/uL (4.8-10.8)
[2019-12-26 11:59] LABS: INR-International Normal Ratio 1.1; PTT 30.1 sec (22.9-36.1); Prothrombin Time 14.4 sec (12.0-14.7)
[2019-12-26 13:00] LABS: Anion Gap 14 mmol/L (10-20); BUN (Urea Nitrogen) 19 mg/dL (8.4-25.7); Calc. Creatinine Clearance 0 mL/min (70-130); Calcium 9.4 mg/dL (7.8-10.44); Carbon Dioxide 23 mmol/L (22-29); Chloride 104 mmol/L (98-107); Estimated GFR-MDRD 61; Glucose 134 mg/dL (70-105); Potassium 4.6 mmol/L (3.5-5.1); Sodium 136 mmol/L (136-145)
[2019-12-26 18:55] LABS: SARS-CoV-2 MS2 Positive; SARS-CoV-2 N Gene Negative; SARS-CoV-2 S Gene Negative; SARS-CoV-2 by NAA Not Detected (NotDetected); SARS-CoV-2 orf1ab Negative
--- NOTE | 2019-12-28 16:50 | EKG ---
Test Reason : PREOP Blood Pressure : / mmHG Vent. Rate : 050 BPM Atrial Rate : 050 BPM P-R Int : 242 ms QRS Dur : 100 ms QT Int : 420 ms P-R-T Axes : 044 -03 005 degrees QTc Int : 382 ms Sinus bradycardia with 1st degree A-V block Otherwise normal ECG When compared with ECG of 01-NOV-2019 14:54, CT interval has increased Confirmed by DR. Edwin WHITAKER ([id number]) on 12/28/2019 4:49:59 PM Referred By: [facility] Confirmed By:DR. Edwin WHITAKER
== END 2019-12-26 07:54 | disposition home or self-care (01) ==
LOC: LABBT 07:53
PROVIDERS: ATTEND Surgery
DX: Z01.818 Encounter for other preprocedural examination (principal); M48.02 Spinal stenosis, cervical region; M54.12 Radiculopathy, cervical region; Z20.828 Contact with and (suspected) exposure to other viral communicable diseases
CPT/HCPCS: 80048; 85027; 85610; 85730; 87635; 93005; 93010; U0003

== ENCOUNTER 2019-12-27 07:54 | Outpatient (CLI) | payer BC ==
--- NOTE | 2019-12-27 08:41 | CT ---
CT CERVICAL SPINE NONCONTRAST: DATE: 12/27/2019 HISTORY: 59-year-old male with cervicalgia and cervical radiculopathy FINDINGS: Vertebral body heights are maintained. Alignment is normal. Diffusely somewhat small caliber spinal canal on a congenital basis due to developmentally short pedi cles. This is exacerbated by spondylosis as described below. Moderate right and mild to moderate left facet DJD at C7-T1. Otherwise no high-grade facet DJD at any other level. ACDF hardware at C5-C6-C7. Definite osseous bridges between the endplates across the C5-6 interbody s pace. Questionable single central osseous bridge at C6-7 interbody space, but there may be oblique linear l ucency through that bridge Osseous bridges between the endplates at C3-4, as well as partial osseous bridges between bilateral f acets at that level. C1-2: No high-grade central spinal canal stenosis. C2-3: Disc space maintained. Mild ligamentum flavum thickening. Mild to moderate central spinal canal stenosis mostly on developmental basis. Small bilateral uncinate process osteophytes. No significant neural foraminal stenosis. C3-4: Mild to moderate central spinal canal stenosis, mostly on developmental basis. Moderate-sized r ight and small left uncinate process osteophytes. Severe right neural foraminal stenosis. No significant left neural foraminal stenosis. C4-5: Broad-based shallow disc protrusion exacerbates the developmentally small caliber spinal canal, causing moderate central spinal canal stenosis. Moderate size right uncinate process osteophytes causing severe right neural foraminal stenosis. No significant left neural foraminal stenosis.. Small left uncinate process osteophytes. C5-6: Broad-based osteophytes protrude into anterior aspect of spinal canal, asymmetrically greater o n the left side than right, causing moderate central spinal canal stenosis. This is contiguous with large left uncinate process osteophytes causing severe left neural foraminal stenosis. Mild right katrin ral foraminal stenosis by small right uncinate process osteophytes. C6-7: Somewhat large bilateral uncinate process osteophytes causing moderate right and severe left ne ural foraminal stenosis. Moderate central spinal canal stenosis, mostly on developmental basis. C7-T1: Ligamentum flavum thickening. Mild to moderate central spinal canal stenosis mostly on develop mental basis. Xdbn-[id number]-enpekymy bilateral neural foraminal stenosis... IMPRESSION: 1) status post anterior cervical discectomy and fusion at C5-C6-C7. 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 Questionable ankylosis across C6-7. 3) ankylosis without hardware at C3-4. 4) developmentally small caliber spinal canal exacerbated by cervical spondylosis, with multilevel mo derate central spinal canal stenosis and multilevel high-grade, including severe, neural foraminal stenosis.
== END 2019-12-27 07:55 | disposition home or self-care (01) ==
LOC: TBSIIMAG 07:54
PROVIDERS: ATTEND Surgery
DX: M47.22 Other spondylosis with radiculopathy, cervical region (principal); M48.02 Spinal stenosis, cervical region; Z98.1 Arthrodesis status
CPT/HCPCS: 72125

== ENCOUNTER 2019-12-31 07:50 | Outpatient (CLI) | payer BC, OTHER ==
[2019-12-31 18:53] LABS: SARS-CoV-2 MS2 Positive; SARS-CoV-2 N Gene Negative; SARS-CoV-2 S Gene Negative; SARS-CoV-2 by NAA Not Detected (NotDetected); SARS-CoV-2 orf1ab Negative
== END 2019-12-31 07:51 | disposition home or self-care (01) ==
LOC: LABBT 07:50
PROVIDERS: ATTEND Surgery
DX: M54.12 Radiculopathy, cervical region (principal); M48.02 Spinal stenosis, cervical region; Z20.828 Contact with and (suspected) exposure to other viral communicable diseases
CPT/HCPCS: 87635; U0003

== ENCOUNTER 2020-01-03 06:20 | Day surgery (SDC) | payer BC ==
[2020-01-02 11:43] VITALS: BMI 29.1
[2020-01-03] MEDS ORDERED: Thrombin 5000 UNITS/5 ML VIAL ONE (06:37)
[2020-01-03] MEDS ORDERED: Fentanyl 100 MCG/2 ML VIAL ONE (07:04)
[2020-01-03] MEDS ORDERED: Midazolam HCl 2 mg/2 ml Vial ONE (07:17)
[2020-01-03] MEDS ORDERED: SUGAMMADEX SODIUM 200 MG/2 ML VIAL ONE (09:09)
[2020-01-03] MEDS ORDERED: Morphine Sulfate 2 MG/ML SYRINGE SLOW IVP PRN (09:20)
[2020-01-03] MEDS ORDERED: Ondansetron HCl/PF 4 MG/2 ML Vial IVP PRN (09:20)
[2020-01-03] MEDS ORDERED: HYDROmorphone 2 MG/ML VIAL SLOW IVP PRN (09:20)
[2020-01-03] MEDS ORDERED: Promethazine HCl 25 MG/ML VIAL SLOW IVP PRN (09:20)
[2020-01-03] MEDS ORDERED: Promethazine HCl 25 MG/ML VIAL IM PRN ×2 (09:20→10:11)
[2020-01-03] MEDS ORDERED: PACU-Morphine 4MG/ML VIAL SLOW IVP PRN (09:20)
[2020-01-03] MEDS ORDERED: diphenhydrAMINE 25 MG CAP PO PRN (10:11)
[2020-01-03] MEDS ORDERED: Acetaminophen/Codeine 30-300mg Tablet PO PRN (10:11)
[2020-01-03] MEDS ORDERED: Milk Of Magnesia 30 ML UDCUP PO PRN (10:11)
[2020-01-03] MEDS ORDERED: tiZANidine HCl 4 MG TAB PO PRN (10:11)
[2020-01-03] MEDS ORDERED: Acetaminophen 325 MG TAB PO PRN (10:11)
[2020-01-03] MEDS ORDERED: traMADol HCl 50 MG TAB PO PRN (10:11)
[2020-01-03] MEDS ORDERED: Morphine 2 MG/ML VIAL SLOW IVP PRN (10:11)
[2020-01-03] MEDS ORDERED: Mag-Al 1200 mg/1200 mg/30 ML UDCUP PO PRN (10:11)
[2020-01-03] MEDS ORDERED: Bisacodyl 10 MG SUPP PR PRN (10:11)
[2020-01-03] MEDS ORDERED: Dexamethasone 20 MG/5 ML VIAL ONE (10:26)
[2020-01-03] MEDS ORDERED: Ondansetron PF 4 MG/2 ML Vial ONE (10:26)
[2020-01-03] MEDS ORDERED: Metoclopramide HCl 10 MG/2 ML VIAL ONE (10:26)
[2020-01-03] MEDS ORDERED: Lidocaine 1% PF 5 ML VIAL ONE (10:26)
[2020-01-03] MEDS ORDERED: Rocuronium Bromide 10 MG/ML (10ML VIAL) ONE (10:26)
[2020-01-03] MEDS ORDERED: PROPOFOL 200 MG/20 ML VIAL ONE (10:26)
[2020-01-03] MEDS ORDERED: Glycopyrrolate 0.2 MG/ML 5 ML SYRINGE ONE (10:26)
--- NOTE | 2020-01-03 10:48 | RAD ---
EXAM: XR Cervical Spine 1 View PROVIDED CLINICAL HISTORY: Operating room surgical localization cervical spine for ACDF. COMPARISON: 08/12/2019 FINDINGS: This examination is obtained as a crosstable lateral view of the cervical spine with 2 views obtained . Patient is in supine positioning. Only the upper cervical spine is visualized. Endotracheal tube is noted in place. There is partial visualization of anterior screws and partial visualization of ant erior plate at C5. Cervical spine distal to this region is not imaged. There is a surgical instrument seen anterior to the C4-5 level and superior endplate C5 vertebral body on the initial denny ge. Second provided image demonstrates postoperative changes related to anterior cervical fusion at the C4-5 level with anterior plate and intradiscal prosthesis noted.. IMPRESSION: Postoperative changes related to ACDF at C4-5 level.
[2020-01-03] MEDS: Sodium Chloride 0.9% 1,000 ML IV SCH (13:08)
[2020-01-03] MEDS: CEFAZOLIN 2 GM in Premix Bag 1 BAG IVPB SCH ×2 (15:49→23:24)
[2020-01-03] MEDS: HYDROcodone/Acetaminophen 7.5/325 mg Tablet PO PRN (20:29)
[2020-01-03] MEDS ORDERED: metFORMIN 500 MG TAB PO SCH (21:00)
[2020-01-03] MEDS ORDERED: Lisinopril 10 MG TAB PO SCH (21:00)
[2020-01-03] MEDS ORDERED: glipiZIDE 5 MG TAB PO SCH (21:00)
[2020-01-03] MEDS ORDERED: rOPINIRole HCl 0.25 MG TAB PO SCH (21:00)
[2020-01-03] MEDS ORDERED: Doxazosin 2 MG TAB PO SCH (21:00)
[2020-01-03] MEDS ORDERED: Loratadine 10 MG TAB PO SCH (21:00)
[2020-01-04] MEDS: HYDROcodone/Acetaminophen 7.5/325 mg Tablet PO PRN ×3 (01:44→12:14)
[2020-01-04] MEDS: Sodium Chloride 0.9% 1,000 ML IV SCH ×2 (01:46→12:16)
[2020-01-04] MEDS: CEFAZOLIN 2 GM in Premix Bag 1 BAG IVPB SCH ×2 (06:02→12:15)
--- NOTE | 2020-01-04 10:37 | PRG ---
DATE OF SERVICE: 01/04/2020 I saw Cooper Bland on hospital rounds this morning. He had a C4-C5 ACDF with Dr. Travis yesterday. He is familiar with the postoperative routine after operations like this. He feels he is ready for discharge. Drain is 50 mL over the 18 hours since noon yesterday. The drain can be withdrawn. He can be discharged home today. He knows about home going care and followup arrangements. Job ID: [id number]
[2020-01-04 13:24] VITALS: BP 119/64; TEMP 98.3
[2020-01-04] MEDS ORDERED: FLU VACC QS2020-21(6MOS UP)/PF 60 MCG/0.5 ML SYRINGE IM ONE (14:30)
--- NOTE | 2020-01-05 08:58 | OP ---
DATE OF PROCEDURE: 01/03/2020 LOCATION: OR-5. 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 PROCEDURES PERFORMED: 1. Opening of C5 through C7 prior wound with exposure of C4-C5 and C5 through C7 plate and screw construct. 2. Removal of C5, C6, C7 plate and screw construct, separate from interbody spacers. 3. Assessment for intraoperative fusion, C5-C6, C6-C7. 4. C4-C5 anterior diskectomy for decompression of spinal cord and nerve roots. 5. Placement of interbody spacer at C4-C5, packed with local bone autograft obtained from the same incision and allograft at C4-C5 for arthrodesis (separate from plate). 6. Anterior cervical plate and screw fixation, C4, C5, C6, and C7. 7. Use of operative microscope for microdissection. DESCRIPTION OF PROCEDURE: After informed consent was obtained from the patient, the patient was brought to the OR. Proper patient, pause, and identification were carried out. He was placed under excellent general endotracheal anesthesia and positioned supine on the OR table. The right anterior oblique chan allowing for approach from C4 through C7 was drawn out. This region was sterilely cleansed, prepared, and draped. Proper patient, pause, and identification were carried out. The wound was then opened with a combination of sharp, monopolar, and blunt dissection, proceeded through the scarred region of C5, C6, C7, and identified the prior plate. The plate and screw construct was removed in its entirety. I assessed for fusion at C5-C6, which certainly appeared to be more solid than at C6-C7. There was bone growth at both segments, and again, he likely was fused both radiologically and intraoperatively at C5-C6, but not at C6-C7. As such, I opted to perform plating across the C5 through C7 segments as well as I was not convinced that he was fused at C5-C6, and the final plate and screw construct ended up being C4, C5, C6, C7. At C4-C5, we then identified this segment and distraction then occurred. The microscope was used for microdissection, and diskectomy was performed at C4-C5 with preparation of the endplates and decompression of spinal cord and bilateral C5 nerve roots. I then prepared the endplates, interbody spacer separate from the plate, packed with local bone autograft obtained from the same incision and allograft, was placed at C4-C5 for the initiation of arthrodesis. I then released the distraction, anterior cervical plate and screw fixation at C4, C5, C6, C7 was then occurred. Microscope was then removed and anterior cervical plate and screw fixation at C4, C5, C6, C7 then occurred. Copious irrigation occurred throughout as did maximizing hemostasis. The wound was then closed in anatomic layers over a drain. The patient then emerged from anesthesia. Job ID: [id number]
== END 2020-01-04 13:42 | disposition home or self-care (01) ==
LOC: SDC 06:20 → EDSTATUS 09:00 → SURG B 10:10 → SDC 01-04 13:42
PROVIDERS: ATTEND Surgery
PROC: 0RT30ZZ Resection of Cervical Vertebral Disc, Open Approach (ICD-10-PCS; principal; 2020-01-03)
PROC: 0RG10A0 Fusion of Cervical Vertebral Joint with Interbody Fusion Device, Anterior Approach, Anterior Column, Open Approach (ICD-10-PCS; principal; 2020-01-03)
DX: M54.12 Radiculopathy, cervical region (principal); M48.02 Spinal stenosis, cervical region; M48.061 Spinal stenosis, lumbar region without neurogenic claudication; D68.69 Other thrombophilia; Z86.718 Personal history of other venous thrombosis and embolism; Z79.01 Long term (current) use of anticoagulants; Z79.84 Long term (current) use of oral hypoglycemic drugs; Z79.899 Other long term (current) drug therapy; Z95.820 Peripheral vascular angioplasty status with implants and grafts; Z98.1 Arthrodesis status
CPT/HCPCS: 72020; 90471; 90662; C1713; C1776; G0008; J0690; J1100; J2250; J2405; J2704; J2765; J3010

== ENCOUNTER 2020-02-17 10:43 | Outpatient (CLI) | payer BC ==
--- NOTE | 2020-02-17 11:41 | RAD ---
CERVICAL SPINE SERIES 3 VIEWS: Date: 02/17/2020 HISTORY: Follow-up surgery. COMPARISON: 08/12/2019 exam. FINDINGS: The patient has undergone anterior cervical fusion with placement of plate and screws from C4 to C7. Markers of disc implants are within intervening disc levels. Moderate disc narrowing is seen at C3-4. IMPRESSION: Postop changes of the spine. POS: MIGUELITO
== END 2020-02-17 10:44 | disposition home or self-care (01) ==
LOC: TBSIIMAG 10:43
PROVIDERS: ATTEND Physician Assistant
DX: M54.12 Radiculopathy, cervical region (principal); Z98.1 Arthrodesis status
CPT/HCPCS: 72040